=== PATIENT | male | born 1960 | race Caucasian/White ===

== ENCOUNTER 2023-03-13 16:30 | Inpatient (IN) | payer OTHER ==
[2023-03-13 18:10] LABS: Absolute Lymphocytes (CBC) 1.3 K/uL (0.7-4.9); Hematocrit 35.1 % (39.6-49.0); Lymphocytes % 9.8 % (15.3-44.8); MCV 90.9 fL (80-100); MPV 7.8 fL (7.6-11.3); Platelets 289 thou/uL (152-406); RBC Red Blood Cell Count 3.86 M/uL (4.33-5.43)
[2023-03-13 18:14] LABS: Protime INR 1.26
[2023-03-13] MEDS ORDERED: NA CHLORIDE 0.9% 500 ML ONE (18:29)
[2023-03-13] MEDS ORDERED: ACETAMINOPHEN 650MG/RECT SUPP PR ONE (18:29)
[2023-03-13] MEDS ORDERED: NA CHLORIDE 0.9% 1,000 ML ONE (18:29)
[2023-03-13 18:34] LABS: Albumin 2.7 g/dL (3.4-5.0); Bilirubin Total 0.5 mg/dL (0.2-1.0); Potassium 3.7 mEq/L (3.5-5.1); Protein, Total 7.9 g/dL (6.4-8.2)
[2023-03-13] MEDS ORDERED: VANCOMYCIN 1 GM/VIAL ONE (18:39)
[2023-03-13] MEDS ORDERED: CEFEPIME 1 GM/VIAL ONE (18:39)
[2023-03-13] MEDS ORDERED: NA CHLORIDE 0.9% 250 ML ONE (18:40)
[2023-03-13] MEDS ORDERED: NA CHLORIDE 0.9% 100 ML ONE (18:40)
--- NOTE | 2023-03-13 18:58 | RAD REPORT ---
EXAM DESCRIPTION: CT - Head Brain Wo Cont - 03/13/2023 5:57 pm CLINICAL HISTORY: mental status change COMPARISON: No comparisons TECHNIQUE: Noncontrast head CT images were obtained without IV contrast. Multiplanar reformats were generated and reviewed. All CT scans are performed using dose optimization technique as appropriate and may include automated exposure control or mA/KV adjustment according to patient size. FINDINGS: Regions of encephalomalacia with volume loss involving the left frontal lobe in the MCA di stribution, as well as the adjacent high postcentral gyrus, and the right occipital lobe. No intracranial hemorrhage, mass, or edema. Midline structures are unremarkable. No hydrocephalus. Mild diffuse parenchymal volume loss. Davis-white matter differentiation elsewhere is preserved, without evidence of acute infarct. No abnor mal extra-axial fluid collections. Mastoid air cells show patchy fluid opacification. Paranasal sinuses are well aerated. . No acute bony findings. IMPRESSION: No evidence of an acute intracranial process. Chronic findings as above, most compatible with sequelae of remote ischemia.
--- NOTE | 2023-03-13 19:16 | RAD REPORT ---
EXAM DESCRIPTION: [place] Single View03/13/2023 6:20 pm CLINICAL HISTORY: FEVER COMPARISON: No comparisons TECHNIQUE: Portable AP view of the chest. FINDINGS: Decreased inspiratory effort limits evaluation. Small left costophrenic angle airspace opa city could reflect atelectasis or early airspace disease. Sequelae of prior CABG. No pneumothorax. P ossible trace left effusion. The cardiomediastinal contours are unremarkable. IMPRESSION: Small left costophrenic is airspace opacity, could reflect atelectasis or early airspace disease.
--- NOTE | 2023-03-13 19:17 | RAD REPORT ---
EXAM DESCRIPTION: RAD - Foot Left 3 View - 03/13/2023 6:20 pm CLINICAL HISTORY: r/o osteomyelitis COMPARISON: No comparisons TECHNIQUE: Left foot, 3 views. FINDINGS: No fracture, dislocation or periosteal reaction. Sequelae of amputation of the tuft of the first digit distal phalanx. No osseous destructive changes are appreciated. Adjacent soft irregulari ty. No air or foreign body in the soft tissues. IMPRESSION: Sequelae of amputation of the tuft of the first digit distal phalanx. No findings to sug gest ongoing osteomyelitis. If there is persistent clinical suspicion, additional evaluation by MRI w ould provide improved sensitivity.
[2023-03-13 19:19] LABS: Specific Gravity > 1.030 (1.005-1.030); Urine Bacteria <20 /HPF (<20); Urine Bilirubin NEGATIVE (Negative); Urine Blood Negative (Negative); Urine Clarity Extremely Turbid (Clear); Urine Color Yellow (Yellow); Urine Crystals Unidentified Few /HPF (None Seen); Urine Glucose NEGATIVE (Negative); Urine Mucus 2+ /HPF (None Seen); Urine Protein 1+ (Negative); Urine Urobilinogen 3+ (Normal); Urine WBC Clump Rare /HPF (None Seen)
--- NOTE | 2023-03-13 19:40 | EDPHYS ---
Physician Documentation [facility] Name: Ariel Andrews Age: 62 yrs Sex: Male : 1960 Arrival Date: 03/13/2023 Time: 16:30 Bed 20 Private MD: ED Physician Henrik Walton HPI: 03/13 16:38 This 62 yrs old Unknown Male presents to ER via EMS with complaints of Fall Injury, jh7 Altered Mental Status. 16:38 Details of fall: The patient fell from a supine position, out of bed. Onset: The jh7 symptoms/episode began/occurred today. [facility] status. [facility] staff reports that the patient threw himself out of bed twice today. Also reports that he had a fever and is currently being treated for gangrenous left toe. Patient is aphasic with right-sided deficits from past stroke.. Historical: - Allergies: 16:38 No Known Allergies; eh3 - PMHx: 16:38 Cerebrovascular accident; Diabetes mellitus; Hypothyroidism; Hypertensive disorder; eh3 Transient cerebral ischemia; Peripheral vascular disease; Aphasia; Dysphagia; Anemia; Anxiety; Depressive disorder; Insomnia; - PSHx: 16:38 Right AKA; Coronary artery bypass graft; eh3 - Immunization history:: Adult Immunizations up to date. - Social history:: Smoking status: unknown. ROS: 16:38 Eyes: Negative for injury, pain, redness, and discharge, ENT: Negative for injury, jh7 pain, and discharge, Neck: Negative for injury, pain, and swelling, Cardiovascular: Negative for chest pain, palpitations, and edema, Respiratory: Negative for shortness of breath, cough, wheezing, and pleuritic chest pain, Abdomen/GI: Negative for abdominal pain, nausea, vomiting, diarrhea, and constipation, 16:38 Constitutional: Positive for fever, 16:38 MS/extremity: Positive for Wound on left great toe, right AKA, 16:38 Skin: Positive for Necrotic wound on left great toe, 16:38 Neuro: Positive for altered mental status, Negative for seizure activity, syncope, 16:38 All other systems are negative, Exam: 16:38 Constitutional: This is a well developed, well nourished patient who is awake, alert, jh7 and in no acute distress. Head/Face: Normocephalic, atraumatic. ENT: Nares patent. No nasal discharge, no septal abnormalities noted. Tympanic membranes are normal and external auditory canals are clear. Oropharynx with no redness, swelling, or masses, exudates, or evidence of obstruction, uvula midline. Mucous membranes moist. Neck: Trachea midline, no thyromegaly or masses palpated, and no cervical lymphadenopathy. Supple, full range of motion without nuchal rigidity, or vertebral point tenderness. No Meningismus. Cardiovascular: Regular rate and rhythm with a normal S1 and S2. No gallops, murmurs, or rubs. Normal PMI, no JVD. No pulse deficits. Respiratory: Lungs have equal breath sounds bilaterally, clear to auscultation and percussion. No rales, rhonchi or wheezes noted. No increased work of breathing, no retractions or nasal flaring. Abdomen/GI: Soft, non-tender, with normal bowel sounds. No distension or tympany. No guarding or rebound. No evidence of tenderness throughout. 16:38 Musculoskeletal/extremity: Extremities: Right ixecc-mgi-kmua amputation, Large gangrenous wound on left great toe extending to the distal metatarsal, Circulation is intact in all extremities. Sensation intact. 16:38 Skin: Large gangrenous wound on the left great toe. 16:38 Neuro: Patient is aphasic from previous stroke but is able to follow commands, Vital Signs: 16:34 BP 99 / 59; Pulse 96; Resp 18; Temp 100.3(O); Pulse Ox 95% on R/A; Weight 82.55 kg; eh3 17:30 BP 99 / 51; Pulse 91; Resp 18; Pulse Ox 97% on R/A; eh3 18:30 BP 128 / 44; Pulse 77; Resp 18; Pulse Ox 98% on R/A; eh3 19:30 BP 125 / 48; Pulse 78; Resp 18; Pulse Ox 98% on R/A; eh3 20:30 BP 123 / 44; Pulse 74; Resp 18; Pulse Ox 95% on R/A; eh3 MDM: 16:34 Patient medically screened. [facility] 19:20 Differential diagnosis: Sepsis, CVA, electrolyte imbalance, UTI, pneumonia, wound jh7 infection, hypoglycemia. Data reviewed: vital signs, nurses notes, lab test result(s), EKG, radiologic studies, CT scan, plain films. Consideration of Admission/Observation Patient was admitted/placed on observation. Management of patient was discussed with the following: Hospitalist: MARIA DEL ROSARIO [place] for Dr. Tellez. I considered the following discharge prescriptions or medication management in the emergency department Medications were administered in the Emergency Department. See MAR. Independent interpretation of the following test(s) in the Emergency Department EKG: See my EKG interpretation above. Historians other than the Patient: EMS: . Care significantly affected by the following chronic conditions: Diabetes, Hypertension, CVA. Post IV fluid administration reassessment for Sepsis: Client prescribed 30 mL/kg IVF. Sepsis focused reassessment complete. Heart: Regular rate/rhythm noted. Lungs: Noted to be clear bilaterally. Capillary refill examination performed. Capillary refill noted to be brisk. Peripheral pulse evaluation performed. Radial Skin examination performed. Skin noted to have normal turgor. Current vital signs reviewed: Yes. Counseling: I had a detailed discussion with the patient and/or guardian regarding the historical points, exam findings, and any diagnostic results supporting the discharge/admit diagnosis, the need for further work-up and treatment in the hospital. Response to treatment: the patient's symptoms have mildly improved after treatment. 03/13 16:42 Order name: Blood Culture Adult (2) [facility] 03/13 16:42 Order name: CBC with Diff; Complete Time: 18:15 [facility] 03/13 16:42 Order name: CMP; Complete Time: 18:52 [facility] 03/13 16:42 Order name: Lactate w/ 2H reflex if indic.; Complete Time: 18:52 [facility] 03/13 16:42 Order name: Protime (+inr); Complete Time: 18:15 [facility] 03/13 16:42 Order name: Ptt, Activated; Complete Time: 18:15 [facility] 03/13 16:42 Order name: Urinalysis w/ reflexes; Complete Time: 19:19 [facility] 03/13 19:22 Order name: Urine Culture [facility] 03/13 20:28 Order name: SARS RAPID mc5 03/13 16:42 Order name: Chest Single View XRAY; Complete Time: 19:18 [facility] 03/13 16:42 Order name: XRAY Foot LEFT 3 View; Complete Time: 19:18 [facility] 03/13 17:11 Order name: Head Brain Wo Cont; Complete Time: 19:01 EDMS 03/13 16:42 Order name: EKG; Complete Time: 17:52 [facility] 03/13 19:48 Order name: CONS Physician Consult [facility] 03/13 16:42 Order name: Accucheck; Complete Time: 17:01 [facility] 03/13 16:42 Order name: Cardiac monitoring; Complete Time: 17:01 [facility] 03/13 16:42 Order name: EKG - Nurse/Tech; Complete Time: 17:35 [facility] 03/13 16:42 Order name: IV Saline Lock - Large Bore; Complete Time: 18:13 [facility] 03/13 16:42 Order name: Labs collected and sent; Complete Time: 18:13 [facility] 03/13 16:42 Order name: O2 Per Protocol; Complete Time: 17: [facility] 03/13 16:42 Order name: O2 Sat Monitoring; Complete Time: 17:01 [facility] 03/13 16:42 Order name: Vital Signs; Complete Time: 17:01 [facility] 03/13 18:24 Order name: Reinoso; Complete Time: 19:13 [facility] EC:11 Rate is 98 beats/min. Rhythm is regular. Left axis deviation noted. NC interval is [facility] normal at 162 msec. QRS interval is normal. QT interval is normal at 344 msec. No Q waves. T waves are Normal. No ST changes noted. Clinical impression: Sinus Rhythm with occasional premature ventricular complexes. Administered Medications: 18:13 Drug: Acetaminophen NC Suppository 650 mg NC once Route: NC; 3 21:00 Follow up: Response: No adverse reaction; Temperature is decreased [facility] 18:14 Drug: NS 0.9% IV (30 ml/kg) 30 ml/kg IV at bolus once; Sepsis Protocol Route: IV; Rate: eh3 bolus; Site: left hand; 21:00 Follow up: IV Status: Completed infusion; IV Intake: 2500ml 3 19:08 Drug: Cefepime IVPB 1 grams IVPB at 200 ml/hr once over 30 mins; (mix in NS 100 mL) 3 Route: IVPB; Rate: 200 ml/hr; Infused Over: 30 mins; Site: left hand; 19:46 Follow up: Response: No adverse reaction; IV Status: Completed infusion; IV Intake: km8 100ml 19:47 Drug: vancoMYCIN IVPB 1 grams IVPB once over 2 hrs Route: IVPB; Infused Over: 2 hrs; km8 Site: left hand; 21:00 Follow up: Response: No adverse reaction; IV Status: Infusion continued upon admission; [facility] IV Intake: 150ml Disposition Summary: 03/13/23 19:39 Hospitalization Ordered Notes: Hospitalization Status: Inpatient Admission [facility] Provider: Woody Tellez [facility] Location: Telemetry/MedSur (Inpatient) [facility] Condition: Stable [facility] Problem: new [facility] Symptoms: are unchanged [facility] Bed/Room Type: Standard [facility] Room Assignment: 207(03/13/23 20:38) Diagnosis - Severe sepsis without septic shock [facility] - Gangrenous wound to the left great toe [facility] Forms: - Medication Reconciliation Form [facility] - SBAR form [facility] - Leadership Thank You Letter [facility] Signatures: Dispatcher [employer] EDMS Shayy Jaramillo RN RN Iris Ling RN RN [facility] Deirdre Duncan, COTTON CONVERTER COTTON CONVERTER [facility] Shannan Monroe RN RN [facility] Corrections: (The following items were deleted from the chart) 16:47 16:38 PMHx: Diabetes mellitus; [facility] 17:59 17:53 Head Brain Wo Cont+CT.RAD.BRZ ordered. EDMS EDMS 18:24 18:23 Reinoso ordered. [place] [id number] 20:38 19:39 [facility]
--- NOTE | 2023-03-13 19:40 | ER ---
Nurse's Notes [facility] Name: Ariel Andrews Age: 62 yrs Sex: Male : 1960 Arrival Date: 03/13/2023 Time: 16:30 Bed 20 Private MD: Diagnosis: Severe sepsis without septic shock;Gangrenous wound to the left great toe Presentation: 03/13 16:34 Chief complaint: EMS states: toned out to [place] for fall out of bed. 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 Pt has existing wound on left big toe being treated for gangrene. Coronavirus screen: Vaccine status: Patient reports receiving the 2nd dose of the covid vaccine. Ebola Screen: No symptoms or risks identified at this time. Initial Sepsis Screen: Does the patient meet any 2 criteria? Temp <36.0*C (96.8*F)) or > 38.3*C (100.9*F). Altered Mental Status. Does the patient have a suspected source of infection? Yes:. Risk Assessment: Do you want to hurt yourself or someone else? Patient reports no desire to harm self or others. Onset of symptoms was March 13, 2023. 16:34 Method Of Arrival: EMS: [facility] 16:34 Acuity: CROW 2 3 16:34 Care prior to arrival: Medication(s) given: Lactated Ringers 350mL IV initiated. 20 GA, eh3 in the left hand, Glucose check: 126. Triage Assessment: 16:38 General: Appears in no apparent distress. Behavior is cooperative, flat. Pain: Denies eh3 pain. Neuro: Level of Consciousness is awake, alert, obeys commands, Oriented to person, place. Cardiovascular: Capillary refill < 3 seconds Patient's skin is warm and dry. Respiratory: Airway is patent Respiratory effort is even, unlabored, Respiratory pattern is regular, symmetrical. GI: Abdomen is round non-distended. Derm: Skin is pink, warm \\T\\ dry. Wound noted left first toe Wound is eschar. Musculoskeletal: Amputation of right leg above the knee Capillary refill < 3 seconds. Historical: - Allergies: 16:38 No Known Allergies; eh3 - PMHx: 16:38 Cerebrovascular accident; Diabetes mellitus; Hypothyroidism; Hypertensive disorder; eh3 Transient cerebral ischemia; Peripheral vascular disease; Aphasia; Dysphagia; Anemia; Anxiety; Depressive disorder; Insomnia; - PSHx: 16:38 Right AKA; Coronary artery bypass graft; eh3 - Immunization history:: Adult Immunizations up to date. - Social history:: Smoking status: unknown. Screenin:40 [facility] ED Fall Risk Assessment (Adult) Score/Fall Risk Level 0 - 2 = Low Risk. Abuse eh3 screen: Denies threats or abuse. Denies injuries from another. Nutritional screening: No deficits noted. Tuberculosis screening: No symptoms or risk factors identified. Assessment: 16:40 Reassessment: No changes from previously documented assessment. See triage assessment. eh3 17:30 Reassessment: Patient appears in no apparent distress at this time. Patient and/or eh3 family updated on plan of care and expected duration. Pain level reassessed. Patient is alert, oriented x 3, equal unlabored respirations, skin warm/dry/pink. 18:30 Reassessment: Patient appears in no apparent distress at this time. Patient and/or eh3 family updated on plan of care and expected duration. Pain level reassessed. Patient is alert, oriented x 3, equal unlabored respirations, skin warm/dry/pink. 19:30 Reassessment: Patient appears in no apparent distress at this time. Patient and/or eh3 family updated on plan of care and expected duration. Pain level reassessed. Patient is alert, oriented x 3, equal unlabored respirations, skin warm/dry/pink. 20:30 Reassessment: Patient appears in no apparent distress at this time. Patient and/or eh3 family updated on plan of care and expected duration. Pain level reassessed. Patient is alert, oriented x 3, equal unlabored respirations, skin warm/dry/pink. Vital Signs: 16:34 BP 99 / 59; Pulse 96; Resp 18; Temp 100.3(O); Pulse Ox 95% on R/A; Weight 82.55 kg; eh3 17:30 BP 99 / 51; Pulse 91; Resp 18; Pulse Ox 97% on R/A; eh3 18:30 BP 128 / 44; Pulse 77; Resp 18; Pulse Ox 98% on R/A; eh3 19:30 BP 125 / 48; Pulse 78; Resp 18; Pulse Ox 98% on R/A; eh3 20:30 BP 123 / 44; Pulse 74; Resp 18; Pulse Ox 95% on R/A; eh3 ED Course: 16:33 Patient arrived in ED. 3 16:34 Deirdre Duncan FNP [facility] 7 16:34 Henrik Walton MD is Attending Physician. 7 16:38 Triage completed. 3 16:38 Arm band placed on. 3 16:40 Patient has correct armband on for positive identification. Placed in gown. Bed in low eh3 position. Call light in reach. Side rails up X2. Provided Education on: Use of call martin. Client placed on continuous cardiac and pulse oximetry monitoring. NIBP monitoring applied. 16:45 Missed attempt(s): 18 gauge in right antecubital area. Bleeding controlled, band aid eh3 applied, catheter tip intact. 16:55 Missed attempt(s): 20 gauge in right upper arm. Bleeding controlled, band aid applied, eh3 catheter tip intact. 16:57 Iris Ling, FELICITA is Primary Nurse. 3 17:59 Head Brain Wo Cont In Process Unspecified. EDMS 18:07 Initial lab(s) drawn, by me, sent to lab. Inserted saline lock: 22 gauge in left ph antecubital area, using aseptic technique. Blood collected. 18:22 Chest Single View XRAY In Process Unspecified. EDMS 18:22 XRAY Foot LEFT 3 View In Process Unspecified. EDMS 19:11 Reinoso cath inserted, using sterile technique, 16 Fr., by me, balloon inflated, to sm8 gravity drainage, urine specimen collected. Patient tolerated well. with temperature gauge. 19:37 Woody Tellez MD is Hospitalizing Provider. [facility] 21:00 No provider procedures requiring assistance completed. Patient admitted, IV remains in eh3 place. Administered Medications: 18:13 Drug: Acetaminophen VA Suppository 650 mg VA once Route: VA; [facility] 21:00 Follow up: Response: No adverse reaction; Temperature is decreased [facility] 18:14 Drug: NS 0.9% IV (30 ml/kg) 30 ml/kg IV at bolus once; Sepsis Protocol Route: IV; Rate: eh3 bolus; Site: left hand; 21:00 Follow up: IV Status: Completed infusion; IV Intake: 2500ml [facility] 19:08 Drug: Cefepime IVPB 1 grams IVPB at 200 ml/hr once over 30 mins; (mix in NS 100 mL) [facility] Route: IVPB; Rate: 200 ml/hr; Infused Over: 30 mins; Site: left hand; 19:46 Follow up: Response: No adverse reaction; IV Status: Completed infusion; IV Intake: km8 100ml 19:47 Drug: vancoMYCIN IVPB 1 grams IVPB once over 2 hrs Route: IVPB; Infused Over: 2 hrs; 8 Site: left hand; 21:00 Follow up: Response: No adverse reaction; IV Status: Infusion continued upon admission; [facility] IV Intake: 150ml Medication: 21:00 VIS not applicable for this client. [facility] Intake: 19:46 IV: 100ml; Total: 100ml. [facility] 21:00 IV: 150ml; Total: 250ml. 3 21:00 IV: 2500ml; Total: 2750ml. [facility] Outcome: 19:39 Decision to Hospitalize by Provider. [facility] 21:00 Admitted to Med/surg accompanied by nurse, via stretcher, room 207, Report called to radha Minaya RN 21:00 Condition: stable 21:00 Instructed on the need for admit, 21:04 Patient left the ED. [facility] Signatures: Dispatcher [employer] Aylin Poole, FELICITA MIMS Iris Ling RN FELICITA [facility] Deirdre Duncan, CARDIAC CATHETERIZATION TECHNOLOGIST CARDIAC CATHETERIZATION TECHNOLOGIST [facility] Sindy Mccain [facility] Shannan Monroe RN RN 8 Corrections: (The following items were deleted from the chart) 16:47 16:38 PMHx: Diabetes mellitus; [place] [id number] 17:00 16:34 BP 102 / 40; Pulse 86bpm; Resp 18bpm; Pulse Ox 95% RA; Temp 102.8F Axillary; [place] [id number] 21:26 21:23 Response: No adverse reaction; IV Status: Infusion continued upon admission; IV 3 Intake: 150ml [facility] : 21:23 IV Status: Completed infusion; IV Intake: 2500ml [place] [id number] : 21:23 Response: No adverse reaction; Temperature is decreased [place] [id number]
--- NOTE | 2023-03-13 19:43 | P.HP ---
Certification for Inpatient Patient admitted to: Inpatient With expected LOS: <2 Midnights Patient will require the following post-hospital care: None Practitioner: I am a practitioner with admitting privileges, knowledge of patient current condition, hospital course, and medical plan of care. Services: Services provided to patient in accordance with Admission requirements found in Title 42 Section 412.3 of the Code of Federal Regulations Patient History Date of Service: 03/14/23 Reason for admission: Leukocytosis History of Present Illness: 62-year-old male with a past medical history of CVA, diabetes, hypothyroidism, hypertension, PVD, aphasia, dysphagia, anemia, anxiety, depression, insomnia, presents to the emergency room via EMS from [facility] with after falling out of bed from the [facility] today. correction also reported patient had a fever, and is currently being treated for gangrene of the left toe. Patient is aphasic with right-sided weakness from previous CVA. Patient responds to verbal with head nods, no reported shortness of breath or chest pain, plan to admit for sepsis without shock, Gangrenous wound to the left great toe with surgery consulted. ER evaluation EKG rate is 98 beats/min. Rhythm is regular. Left axis deviation noted. CT interval is normal at 162 msec. QRS interval is normal. QT interval is normal at 344 msec. No Q waves. T waves are Normal. No ST changes noted. Clinical impression: Sinus Rhythm with occasional premature ventricular complexes. Vital signs4 BP 99 / 59; Pulse 96; Resp 18; Temp 100.3(O); Pulse Ox 95% on R/A patient was treated with cefepime and vancomycin in the emergency room. Left foot x-ray IMPRESSION: Sequelae of amputation of the tuft of the first digit distal phalanx. No findings to suggest ongoing osteomyelitis. If there is persistent clinical suspicion, additional evaluation by MRI would provide improved sensitivity. Chest x-ray MPRESSION: Small left costophrenic is airspace opacity, could reflect atelectasis or early airspace disease. CT of the brain IMPRESSION: No evidence of an acute intracranial process.Chronic findings as above, most compatible with sequelae of remote ischemia. Laboratory evaluation CBC leukocytosis 13.50, early left shift, normocytic anemia 11.1 35.1, hypoalbuminemia 2.7 UA positive for acute cystitis leukoesterase greater than 250 10-11 WBCs Allergies No Known Allergies Allergy (Unverified 03/13/23 21:34) Home medications list reviewed: Yes Home Medications: Acetaminophen [Tylenol] 650 mg PO Q6HP PRN 03/13/23 Ascorbic Acid [C-500] 500 mg PO DAILY 03/13/23 Aspirin 81 mg PO DAILY 03/13/23 Atorvastatin Calcium [Lipitor] 20 mg PO BEDTIME 03/13/23 Cholecalciferol (Vitamin D3) [Vitamin D 5,000 Iu Cap] 5,000 unit PO UD 03/13/23 Cyanocobalamin [Vitamin B-12] 1,000 mcg PO DAILY 03/13/23 Divalproex [Depakote Sprinkle] 4 cap PO BEDTIME 03/13/23 Furosemide [Lasix] 20 mg PO DAILY 03/13/23 Insulin Glargine,Hum.rec.anlog [Lantus Solostar] 30 unit SQ BEDTIME 03/13/23 Insulin Regular, Human [Novolin R] See Protocol IJ ACHS 03/13/23 Levothyroxine [Synthroid] 75 mcg PO [id number] 03/13/23 Metoprolol Tartrate [Lopressor] 12.5 mg PO BID 03/13/23 Mirtazapine [Remeron] 7.5 mg PO BEDTIME 03/13/23 Nitroglycerin [Nitrostat] 0.4 mg SL SEECOM 03/13/23 Tamsulosin [Flomax] 0.4 mg PO BEDTIME 03/13/23 Zinc Gluconate [Zinc] 50 mg PO DAILY 03/13/23 - Past Medical/Surgical History Diabetic: Yes -: CVA R) weakness, aphasia -: R)AKA -: HTN -: HLD -: anxiety, depression -: PVD -: hypothyroidism -: Diabetes -: R)AKA -: L) great toe amputation Psychosocial/ Personal History: [facility] HOME - Social History Alcohol use: No CD- Drugs: No Caffeine use: No Review of Systems 10-point ROS is otherwise unremarkable Physical Examination - Physical Exam General: Alert, In no apparent distress, Other (Aphasia, responds to verbal with head nods) HEENT: Atraumatic, Normocephalic, PERRLA, Mucous membr. moist/pink Neck: Supple, 2+ carotid pulse no bruit Respiratory: Normal air movement, Diminished Cardiovascular: Normal pulses, Regular rate/rhythm, Normal S1 S2 Capillary refill: <2 Seconds Gastrointestinal: Normal bowel sounds, Soft and benign Musculoskeletal: Other (Right AKA, left great toe amputation,) Integumentary: Other (Left great toe gangrene) Neurological: Other (Right hemiparesis), Abnormal speech - Studies Laboratory Data (last 24 hrs) 03/13/23 03/13/23 03/13/23 17:55 17:55 17:55 WBC 13.50 H Hgb 11.7 L Hct 35.1 L Plt Count 289 PT 13.9 H INR 1.26 APTT 34.2 Sodium 140 Potassium 3.7 BUN 12 Creatinine 1.26 Glucose 124 H Total Bilirubin 0.5 AST 14 L ALT 13 L Alkaline Phosphatase 64 Assessment and Plan - Plan Assessment plan Sepsis without shock acute left great toe gangrene acute Fall acute Hypoalbuminemia Acute cystitis History of CVA right hemiparesis, aphasia, dysphagia Normocytic anemia diabetes type II hypothyroidism hypertension PVD anemia anxiety, depression insomnia DVT prophylaxis Assessment plan Sepsis without shock left great toe gangrene Surgery consult to evaluate left lower extremity gangrene CBC leukocytosis 13.50, early left shift, IV cefepime, IV vancomycin Blood cultures, urine cultures, trend WBC Left foot x-ray IMPRESSION: Sequelae of amputation of the tuft of the first digit distal phalanx. No findings to suggest ongoing osteomyelitis. If there is persistent clinical suspicion, additional evaluation by MRI would provide improved sensitivity. Chest x-ray MPRESSION: Small left costophrenic is airspace opacity, could reflect atelectasis or early airspace disease. Acute cystitis UA positive for acute cystitis leukoesterase greater than 250 10-11 WBCs IV antibiotics Fall history of CVA right hemiparesis, aphasia, dysphagia Fall precautions, supportive care CT of the brain IMPRESSION: No evidence of an acute intracranial process.Chronic findings as above, most compatible with sequelae of remote ischemia. PT eval relation Normocytic anemia anemia 11.1 35.1 Hypoalbuminemia hypoalbuminemia 2.7 diabetes type II Accu-Cheks, sliding scale insulin hypothyroidism hypertension EKG rate is 98 beats/min. Rhythm is regular. Left axis deviation noted. CT interval is normal at 162 msec. QRS interval is normal. QT interval is normal at 344 msec. No Q waves. T waves are Normal. No ST changes noted. Clinical impression: Sinus Rhythm with occasional premature ventricular complexes. Vital signs4 BP 99 / 59; Pulse 96; Resp 18; Temp 100.3(O); Pulse Ox 95% on R/A PVD anxiety, depression insomnia Resume appropriate home medications Full code Diet n.p.o. after midnight DVT prophylaxis SCDs Discharge Plan: Snf Plan to discharge in: 48 Hours - Advance Directives Does patient have a Living Will: No Does patient have a Durable POA for Healthcare: No - Code Status/Comfort Care Code Status: Full Code Physician Review: Patient Assessed, Agree with Above Assessment and Plan Critical Care: No Time Spent Managing Pts Care (In Minutes): 50
[2023-03-13] MEDS: NA CHLORIDE 0.9% 1,000 ML IV SCH (20:45)
[2023-03-13] MEDS ORDERED: GLUCAGON 1 MG/VIAL IM PRN (20:45)
[2023-03-13] MEDS ORDERED: ONDANSETRON 4 MG/2 ML VIAL IV PRN (20:45)
[2023-03-13] MEDS ORDERED: D50W 25 GM/50 ML SYRINGE IV PRN (20:45)
[2023-03-13] MEDS: INSULIN REGULAR (HUMAN) 100 UNIT/ML SQ SCH (21:00)
[2023-03-13] MEDS ORDERED: D10W 125 ML IV PRN (21:20)
[2023-03-13] MEDS ORDERED: VANCOMYCIN 500 MG in NA CHLORIDE 0.9% 100 ML IVPB ONE (23:00)
[2023-03-14 03:49] LABS: Absolute Lymphocytes (CBC) 0.9 K/uL (0.7-4.9); Hematocrit 32.1 % (39.6-49.0); Lymphocytes % 10.5 % (15.3-44.8); MCV 91.3 fL (80-100); MPV 8.3 fL (7.6-11.3); Platelets 198 thou/uL (152-406); RBC Red Blood Cell Count 3.52 M/uL (4.33-5.43)
[2023-03-14 04:08] LABS: Magnesium 1.7 mg/dL (1.6-2.4); Potassium 3.5 mEq/L (3.5-5.1)
[2023-03-14] MEDS ORDERED: MAGNESIUM SULFATE 1 gm IVPB 1 GM/100 ML BAG IV ONE (05:00)
[2023-03-14] MEDS ORDERED: KCL 20 MEQ/100 mL IVPB 20 MEQ/100 ML BAG IV SCH (06:00)
[2023-03-14] MEDS: INSULIN REGULAR (HUMAN) 100 UNIT/ML SQ SCH ×4 (07:30→19:08)
[2023-03-14] MEDS: ACETAMINOPHEN 500 MG TAB PO PRN ×2 (08:30→16:18)
[2023-03-14] MEDS ORDERED: VANCOMYCIN 1.25 GM in NA CHLORIDE 0.9% 250 ML IVPB SCH (09:00)
[2023-03-14] MEDS ORDERED: CEFEPIME 2 GM in NA CHLORIDE 0.9% 100 ML IV SCH (09:00)
[2023-03-14] MEDS: NA CHLORIDE 0.9% 1,000 ML IV SCH (12:34)
[2023-03-14] MEDS: Meropenem 1,000 MG in NA CHLORIDE 0.9% 100 ML IV SCH ×2 (12:48→20:25)
[2023-03-14] MEDS: ASPIRIN 81 MG CHEWABLE TABLET PO SCH (12:48)
--- NOTE | 2023-03-14 12:48 | RAD REPORT ---
EXAM DESCRIPTION: RAD - Foot Left 3 View - 03/14/2023 12:39 pm CLINICAL HISTORY: left foot gangrene COMPARISON: Foot Left 3 View dated 03/13/2023 FINDINGS/IMPRESSION: No acute fracture. Partial amputation of the great toe distal phalanx. No evide nce of osteomyelitis. MRI more sensitive in the acute phase.
[2023-03-14] MEDS: VANCOMYCIN 1.5 GM in NA CHLORIDE 0.9% 500 ML IVPB SCH (13:19)
--- NOTE | 2023-03-14 13:51 | EKG ---
Test Date: 2023-03-13 Test Time: 17:11:57 Cigarette Making Examiner: VIVI MEASUREMENT RESULTS: Intervals: Rate: 98 DC: 162 QRSD: 86 QT: 344 QTc: 439 [place]: P: 61 DC: 162 QRS: -42 T: 124 INTERPRETIVE STATEMENTS: Sinus rhythm with occasional premature ventricular complexes Left axis deviation T wave abnormality, consider lateral ischemia Abnormal ECG No previous ECG available for comparison Electronically Signed On 03-14-23 13:49:51 CDT by Kareem Hutchison
--- NOTE | 2023-03-14 15:06 | RAD REPORT ---
EXAM DESCRIPTION: US - Lower Extremity Artery Uni Ltd - 03/14/2023 2:55 pm CLINICAL HISTORY: left foot gangrene COMPARISON: None FINDINGS: The common femoral, superficial femoral and popliteal arteries demonstrate monophasic wave forms The posterior tibial and dorsalis pedis arteries demonstrate monophasic waveforms . IMPRESSION: Monophasic waveforms throughout the left lower extremity. This could reflect a moderate to severe stenosis more proximally in the pelvis.
[2023-03-14] MEDS ORDERED: HYDROMORPHONE HCL 2 MG/ML inj IV PRN (16:23)
[2023-03-14] MEDS ORDERED: AMLODIPINE 5 MG TAB PO ONE (16:24)
[2023-03-14] MEDS ORDERED: HYDROCODONE/APAP 5/325 MG TAB PO PRN (16:24)
[2023-03-14] MEDS ORDERED: VANCOMYCIN 1.5 GM in NA CHLORIDE 0.9% 500 ML IVPB SCH (17:00)
[2023-03-14] MEDS: METOPROLOL TAR 25 MG TAB PO SCH (17:25)
[2023-03-14] MEDS: DIVALPROEX DR 500MG TAB PO SCH (19:08)
[2023-03-14] MEDS: INSULIN GLARGINE 100 UNIT/ML SQ SCH (19:08)
[2023-03-14] MEDS: TAMSULOSIN 0.4 MG SR CAP PO SCH (19:08)
[2023-03-14] MEDS: ATORVASTATIN 20 MG TAB PO SCH ×2 (20:25→21:00)
[2023-03-14] MEDS: MIRTAZAPINE 15 MG TAB PO SCH ×2 (20:25→21:00)
[2023-03-15] MEDS ORDERED: ACETAMINOPHEN 650MG/RECT SUPP PR PRN (01:02)
[2023-03-15] MEDS: LEVOTHYROXINE SOD 0.075 MG TAB PO SCH (03:47)
[2023-03-15] MEDS: VANCOMYCIN 1.5 GM in NA CHLORIDE 0.9% 500 ML IVPB SCH ×2 (07:00→12:12)
[2023-03-15 07:57] LABS: Absolute Lymphocytes (CBC) 1.4 K/uL (0.7-4.9); Hematocrit 30.8 % (39.6-49.0); Lymphocytes % 13.4 % (15.3-44.8); MPV 8.2 fL (7.6-11.3); Platelets 203 thou/uL (152-406); RBC Red Blood Cell Count 3.34 M/uL (4.33-5.43)
[2023-03-15 08:11] LABS: Potassium 3.6 mEq/L (3.5-5.1)
[2023-03-15] MEDS: ASCORBIC ACID 500 MG TABLET PO SCH (09:00)
[2023-03-15] MEDS: METOPROLOL TAR 25 MG TAB PO SCH ×2 (09:00→21:00)
[2023-03-15] MEDS: FUROSEMIDE 20 MG TABLET PO SCH (09:00)
[2023-03-15] MEDS: CYANOCOBALAMIN 1,000 MCG TAB PO SCH (09:00)
[2023-03-15] MEDS: ASPIRIN 81 MG CHEWABLE TABLET PO SCH (09:00)
[2023-03-15] MEDS: INSULIN REGULAR (HUMAN) 100 UNIT/ML SQ SCH ×4 (09:53→21:00)
[2023-03-15] MEDS: Meropenem 1,000 MG in NA CHLORIDE 0.9% 100 ML IV SCH ×2 (09:53→21:57)
--- NOTE | 2023-03-15 13:36 | P.PN ---
Subjective Date of Service: 03/15/23 Chief Complaint: Leukocytosis Patient has no new complain. No recorded fever. Patient is n.p.o. for surgery today. Physical Examination - Vital Signs Temperature: 98.2 F Blood Pressure: 141/67 Pulse: 81 Respirations: 19 Pulse Ox (%): 95 Assessment And Plan - Plan Monophasic waveforms throughout the left lower extremity. Physical Exam General: Alert, In no apparent distress. HEENT: Mucous membr. moist/pink Neck: Supple, 2+ carotid pulse no bruit Respiratory: Normal air movement, Diminished Cardiovascular: Normal pulses, Regular rate/rhythm, Normal S1 S2 Gastrointestinal: Normal bowel sounds, Soft and benign Musculoskeletal: Right AKA, left great toe amputation,) Integumentary: Left great toe dry gangrene. Neurological: Right hemiparesis, Abnormal speech Diagnosis Sepsis without shock acute left great toe gangrene acute Fall acute Hypoalbuminemia Acute cystitis History of CVA right hemiparesis, aphasia, dysphagia Normocytic anemia diabetes type II hypothyroidism hypertension PVD anemia anxiety, depression insomnia Plan: Sepsis without shock left great toe gangrene Surgery consult to evaluate left lower extremity gangrene Continue IV cefepime, IV vancomycin Blood cultures, urine cultures, trend WBC Left foot x-ray IMPRESSION: Sequelae of amputation of the tuft of the first digit distal phalanx. No findings to suggest ongoing osteomyelitis. If there is persistent clinical suspicion, additional evaluation by MRI would provide improved sensitivity. General surgery consulted for debridement. Acute cystitis UA positive for acute cystitis leukoesterase greater than 250 10-11 WBCs Urine culture: Mixed bill. Continue current IV antibiotics Fall history of CVA right hemiparesis, aphasia, dysphagia Fall precautions, supportive care CT of the brain IMPRESSION: No evidence of an acute intracranial process.Chronic findings as above, most compatible with sequelae of remote ischemia. Normocytic anemia Monitor Hypoalbuminemia hypoalbuminemia 2.7 Monitor for edema. Diabetes type II Accu-Cheks, sliding scale insulin Hypertension Blood pressure improved. Resume home medications Hypothyroidism Continue home dose Synthroid. Anxiety, depression insomnia Continue home medications. Peripheral vascular disease Patient may need an angiogram. Full code DVT prophylaxis SCDs Discharge Plan: Group Home s
[2023-03-15] MEDS ORDERED: BUPIVACAINE 0.25% PF 10 ML VIAL ONE (16:12)
[2023-03-15] MEDS ORDERED: NA CHLORIDE 0.9% 1,000 ML ONE (16:43)
[2023-03-15] MEDS ORDERED: SUCCINYLCHOLINE 20 MG/ML (10 ML) IV ONE (18:02)
[2023-03-15] MEDS ORDERED: FENTANYL CITR 100 MCG/2 ML ONE (18:04)
[2023-03-15] MEDS ORDERED: propofoL 200 MG/20 ML VIAL IV ONE ×2 (18:04→18:42)
--- NOTE | 2023-03-15 19:11 | P.OP ---
Preoperative diagnosis: LEFT Great Toe Gangrene Postoperative diagnosis: LEFT Great Toe Gangrene Primary procedure: Transmetatarsal Amputation of LEFT Great Toe Anesthesia: GETA Estimated blood loss: <5cc Specimen: Toe Findings: LEFT Great Toe Gangrene Complications: None Transferred to: Recovery Room Condition: Good
[2023-03-15] MEDS: INSULIN GLARGINE 100 UNIT/ML SQ SCH (21:00)
[2023-03-15] MEDS: TAMSULOSIN 0.4 MG SR CAP PO SCH (21:00)
[2023-03-15] MEDS: MIRTAZAPINE 15 MG TAB PO SCH (22:09)
[2023-03-15] MEDS: DIVALPROEX DR 500MG TAB PO SCH (22:54)
[2023-03-15] MEDS: ATORVASTATIN 20 MG TAB PO SCH (22:58)
[2023-03-16 03:12] LABS: Absolute Lymphocytes (CBC) 1.8 K/uL (0.7-4.9); Hematocrit 30.1 % (39.6-49.0); Lymphocytes % 21.2 % (15.3-44.8); MCV 91.2 fL (80-100); MPV 8.6 fL (7.6-11.3); Platelets 182 thou/uL (152-406)
--- NOTE | 2023-03-16 03:25 | OP ---
Date of Procedure: 03/15/2023 Surgeon: Papito Crane MD, Preoperative Diagnosis: Left great toe gangrene. Postoperative Diagnosis: Left great toe gangrene. Procedure Performed: Transmetatarsal amputation, left great toe. Anesthesia: General endotracheal. Estimated Blood Loss: 5 cc. Specimen: Great toe of the left. Findings: Left great toe gangrene. Complications: None. Disposition: The patient was transferred to recovery room in good condition. Procedure In Detail: After informed was obtained, patient was brought to the operating room, prepped and draped in the usual fashion. After adequate anesthesia was achieved, I demarcated an area of ga ngrenous changes, which extended from the distal aspect of the great toe all the way to the transmeta tarsal aspect of the same said left great toe on the lateral aspect. I demarcated a medial flap to s pare as much skin for flap closure as possible. At this point, I then cut down through the subcutane ous tissues using a 15-blade followed by electrocautery. I dissected circumferentially all the way t o the transmetatarsal position and I the distal phalanx from the metatarsal at this point t hrough the joint capsule using electrocautery. The toe was then sent off for pathologic examination at this point. I then pushed back the periosteum and associated tissues from the metatarsal as the m etatarsal head had discoloration and gangrene extended to this point through the tissues. I ultimate ly performed a transmetatarsal amputation using a bone cutter at this point. I then used a rasp to b evel the edges and irrigated the area copiously to remove all particulate matter. At this point, aft er the area was copiously irrigated, all tendinous connections were pushed back. Periosteal elevator was used to push back additional periosteum and good hemostasis was achieved with minimal electrocau kita. At this point, I used the medial flap to partially close over the top of the wound covering th e vital structures using interrupted 3-0 nylon sutures and the wound was then packed open with Vashe soaked gauze and a sterile dressing placed over top. The patient tolerated the procedure well withou t evidence of complication and transferred to PACU in good condition. All counts were correct at the end of the case. TK/MODL Voice ID: [id number] Report ID: [id number]
[2023-03-16 03:46] LABS: Magnesium 2.1 mg/dL (1.6-2.4); Potassium 3.3 mEq/L (3.5-5.1)
--- NOTE | 2023-03-16 07:05 | P.PN ---
Date of Service: 03/16/23 Subjective: Feeling better today no new / worsening problems foot pain improving afebrile ROS: 10 point ROS as noted above, otherwise negative Physical Exam: GEN: Alert, NAD, nonverbal, but understands, nods yes/no HEENT: Normal conjunctiva, sclera anicteric CV: Regular rate and rhythm, no edema Pulm: Nonlabored respirations on room air, Diminished at bases b/l ABD: Soft, nontender, nondistended MSK: Right AKA, now s/p left great toe amputation, surgical dressing c/d/i Neuro: Right hemiparesis, nonverbal - nods yes/no Enriquez in place vitals reviewed Problem List: Sepsis secondary to left great toe gangrene, now s/p transmetatarsal amputation of left great toe (03/15) Acute cystitis Severe Peripheral vascular disease Acute Fall History of CVA right hemiparesis, aphasia, dysphagia Normocytic anemia Hypoalbuminemia IDDM2 Hypothyroidism Hypertension anxiety, depression insomnia Sepsis secondary to left great toe gangrene, now s/p transmetatarsal amputation of left great toe (03/15) xray Foot (03/13): Sequelae of amputation of the tuft of the first digit distal phalanx. No findings to suggest ongoing osteomyelitis General surgery consulted - Dr. Crane s/p Transmetatarsal Amputation of L Great Toe (03/15) continue empiric vanc / merrem (03/14-) f/u cultures now s/p amputation, de-escalate in next 24hrs afebrile, no leukocytosis blood cx: NGTD Acute cystitis UA: +LE, +WBC, +RBC, <20 bacteria Urine cx: 4+ non-beta hemolytic strep asymptomatic enriquez placed in ED denies urinary symptoms, no retention dc tomorrow Severe Peripheral vascular disease Doppler u/s (03/14): Monophasic waveforms throughout the left lower extremity. moderate-severe stenosis more proximally in the pelvis Cardiology consulted NPO at midnight for peripheral angiogram tomorrow 03/17 Acute Fall history of CVA right hemiparesis, aphasia, dysphagia CT head (03/13): No evidence of an acute intracranial process.Chronic findings as above, most compatible with sequelae of remote ischemia. continue supportive care continue PT Normocytic anemia Hypoalbuminemia hypoalbuminemia 2.7 Continue to monitor IDDM2. Accu-Cheks, sliding scale insulin Hypertension Hypothyroidism Anxiety, depression insomnia confirm home medications, restart as appropriate VTE: SCD Code: Full Dispo: Back to [place] - [facility] Pending further improvement, afebrile > 24hrs, cx results
[2023-03-16] MEDS: LEVOTHYROXINE SOD 0.075 MG TAB PO SCH (07:26)
[2023-03-16] MEDS: INSULIN REGULAR (HUMAN) 100 UNIT/ML SQ SCH ×4 (07:30→20:56)
[2023-03-16] MEDS: FUROSEMIDE 20 MG TABLET PO SCH (09:34)
[2023-03-16] MEDS: ASCORBIC ACID 500 MG TABLET PO SCH (09:35)
[2023-03-16] MEDS: METOPROLOL TAR 25 MG TAB PO SCH ×2 (09:36→20:55)
[2023-03-16] MEDS: ASPIRIN 81 MG CHEWABLE TABLET PO SCH (09:36)
[2023-03-16] MEDS: CYANOCOBALAMIN 1,000 MCG TAB PO SCH (09:36)
[2023-03-16] MEDS: Meropenem 1,000 MG in NA CHLORIDE 0.9% 100 ML IV SCH ×2 (09:37→20:55)
[2023-03-16] MEDS: VANCOMYCIN 1.5 GM in NA CHLORIDE 0.9% 500 ML IVPB SCH ×3 (10:00→16:00)
--- NOTE | 2023-03-16 13:31 | CON ---
Date of Consultation: 03/16/2023 Reason For Consultation: Severe peripheral vascular disease and open wounds. History Of Present Illness: 62-year-old male, history of diabetes, peripheral vascular disease, hype rtension, CVA, anemia presented after a fall, had an open wound to right leg, status post amputation yesterday but he had on arterial Doppler a monophasic waveform suggestive of inflow obstruction, and I was asked to evaluate for a peripheral angiogram and intervention as needed. Past Medical History: As outlined above in the HPI. Medications: Refer to reconciliation sheet for detailed list. Allergies: NO KNOWN DRUG ALLERGIES. Family History: No premature coronary artery disease or cancer. Social History: Does not smoke or drink. Does not use any drugs. Review of Systems: All systems reviewed and they were negative except as mentioned in the HPI. Physical Examination: Vital Signs: Reviewed. Head and Neck: Pupils are equal, reactive to light. Intact eye movements. No JVD. No cervical lym phadenopathy. Neck is supple. Thyroid is not enlarged. Lungs: Clear to auscultation bilaterally. No rhonchi, wheezing, or crackles. No accessory muscle u se. Heart: Regular rate and rhythm. No extra sounds. Abdomen: Soft, nontender. Bowel sounds positive. No organomegaly. No masses or hernia. No rigidi ty or rebound. Extremities: No clubbing, no cyanosis. Status post amputation on the right and multiple wounds on t he left lower extremity, status post bypass in the past of the left lower extremity. Neuro: Alert, awake, oriented x3. No acute focal deficits appreciated. Lymph Nodes: No cervical or axillary lymphadenopathy. Investigations: Labs were reviewed. His BUN is 17, creatinine 0.90, and hemoglobin is 10.1. Assessment And Recommendations: 1.Severe peripheral vascular disease with the ultrasound showing monophasic waveform on the left low er extremity suggestive of inflow obstruction. Keep NPO past midnight. We will plan for a periphera l angiogram tomorrow. 2.Hypertension. His blood pressure is controlled. 3.Dyslipidemia. Recommend Lipitor 40 mg q.h.s. SR/MODL Voice ID: [id number] Report ID: [id number]
[2023-03-16] MEDS ORDERED: HYDROCOD 2.5mg-ACETAMIN 108mg/5mL Soln PO PRN (15:53)
[2023-03-16] MEDS: DIVALPROEX DR 500MG TAB PO SCH (20:55)
[2023-03-16] MEDS: MIRTAZAPINE 15 MG TAB PO SCH (20:55)
[2023-03-16] MEDS: ATORVASTATIN 20 MG TAB PO SCH (20:56)
[2023-03-16] MEDS: TAMSULOSIN 0.4 MG SR CAP PO SCH (20:56)
[2023-03-16] MEDS: INSULIN GLARGINE 100 UNIT/ML SQ SCH (21:00)
[2023-03-17 02:30] LABS: Absolute Lymphocytes (CBC) 1.4 K/uL (0.7-4.9); Hematocrit 33.2 % (39.6-49.0); MCV 90.6 fL (80-100); MPV 8.5 fL (7.6-11.3); Platelets 205 thou/uL (152-406); RBC Red Blood Cell Count 3.66 M/uL (4.33-5.43)
[2023-03-17 02:53] LABS: Magnesium 1.9 mg/dL (1.6-2.4); Potassium 3.3 mEq/L (3.5-5.1)
[2023-03-17] MEDS: LEVOTHYROXINE SOD 0.075 MG TAB PO SCH (05:42)
[2023-03-17] MEDS: KCL 20 MEQ/100 mL IVPB 20 MEQ/100 ML BAG IV SCH ×2 (05:43→06:50)
[2023-03-17] MEDS ORDERED: NA CHLORIDE 0.9% 250 ML ONE (05:49)
[2023-03-17] MEDS: INSULIN REGULAR (HUMAN) 100 UNIT/ML SQ SCH ×4 (07:30→21:24)
[2023-03-17] MEDS: ASCORBIC ACID 500 MG TABLET PO SCH (08:55)
[2023-03-17] MEDS: ASPIRIN 81 MG CHEWABLE TABLET PO SCH (08:55)
[2023-03-17] MEDS: METOPROLOL TAR 25 MG TAB PO SCH ×2 (08:55→21:24)
[2023-03-17] MEDS: CYANOCOBALAMIN 1,000 MCG TAB PO SCH (08:59)
[2023-03-17] MEDS: FUROSEMIDE 20 MG TABLET PO SCH (08:59)
[2023-03-17] MEDS: Meropenem 1,000 MG in NA CHLORIDE 0.9% 100 ML IV SCH ×2 (09:00→21:21)
--- NOTE | 2023-03-17 09:38 | P.PN ---
Date of Service: 03/17/23 Subjective: Doing okay tentative plan for peripheral angiogram today no acute events overnight afebrile ROS: 10 point ROS as noted above, otherwise negative Physical Exam: GEN: Alert, NAD, nonverbal, but understands, nods yes/no HEENT: Normal conjunctiva, sclera anicteric CV: Regular rate and rhythm, no edema Pulm: Nonlabored respirations on room air, Diminished at bases b/l ABD: Soft, nontender, nondistended MSK: Right AKA, now s/p left great toe amputation, surgical dressing c/d/i Neuro: Right hemiparesis, nonverbal - nods yes/no Enriquez in place vitals reviewed Problem List: Sepsis secondary to left great toe gangrene, now s/p transmetatarsal amputation of left great toe (03/15) Acute cystitis Severe Peripheral vascular disease Acute Fall History of CVA right hemiparesis, aphasia, dysphagia Normocytic anemia Hypoalbuminemia IDDM2 Hypothyroidism Hypertension anxiety, depression insomnia Sepsis secondary to left great toe gangrene, now s/p transmetatarsal amputation of left great toe (03/15) xray Foot (03/13): Sequelae of amputation of the tuft of the first digit distal phalanx. No findings to suggest ongoing osteomyelitis General surgery consulted - Dr. Crane s/p Transmetatarsal Amputation of L Great Toe (03/15) continue empiric vanc / merrem (03/14-) f/u cultures now s/p amputation, de-escalate in next 24hrs afebrile, no leukocytosis blood cx: NGTD Acute cystitis UA: +LE, +WBC, +RBC, <20 bacteria Urine cx: 4+ non-beta hemolytic strep asymptomatic enriquez placed in ED denies urinary symptoms, no retention DC enriquez after angiogram; check PVR Severe Peripheral vascular disease Doppler u/s (03/14): Monophasic waveforms throughout the left lower extremity. moderate-severe stenosis more proximally in the pelvis Cardiology consulted NPO for peripheral angiogram today 03/17 Acute Fall history of CVA right hemiparesis, aphasia, dysphagia CT head (03/13): No evidence of an acute intracranial process.Chronic findings as above, most compatible with sequelae of remote ischemia. continue supportive care continue PT Normocytic anemia Hypoalbuminemia hypoalbuminemia 2.7 Continue to monitor IDDM2 Accu-Cheks, sliding scale insulin Hypertension Hypothyroidism Anxiety, depression insomnia confirm home medications, restart as appropriate VTE: SCD Code: Full Dispo: Back to [place] - [place] Pending further improvement, afebrile > 24hrs, cx results
[2023-03-17] MEDS ORDERED: NA CHLORIDE 0.9% 500 ML ONE (11:31)
[2023-03-17] MEDS ORDERED: LIDOCAINE 1% 20 ML MDV ONE (11:31)
[2023-03-17] MEDS ORDERED: HEPA 1000U/500MLS 2,000 UNIT/1,000 ML BAG IV ONE (11:31)
[2023-03-17] MEDS ORDERED: FENTANYL CITR 100 MCG/2 ML ONE (11:33)
[2023-03-17] MEDS ORDERED: ATROPINE SULF 1 MG/10 ML SYR IV ONE (11:35)
[2023-03-17] MEDS ORDERED: HEPARIN 5000 UNIT/ML 1 ML VIAL ONE (11:41)
[2023-03-17] MEDS ORDERED: MIDAZOLAM HCL 2 MG/2 ML INJ ONE (11:41)
[2023-03-17] MEDS ORDERED: VERAPAMIL HCL 10 MG/4 ML VIAL IV ONE (11:41)
[2023-03-17] MEDS ORDERED: HEPARIN 10,000 UNIT/10 ML VIAL IV ONE (11:42)
[2023-03-17] MEDS: VANCOMYCIN 1.5 GM in NA CHLORIDE 0.9% 500 ML IVPB SCH (17:30)
--- NOTE | 2023-03-17 17:32 | RAD REPORT ---
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 Aortic bypass graft is present along with a bifemoral graft. No contrast seen in the by femoral graft which would suggest is occluded as well. Left common femoral artery shows normal flow. The proximal left superficial femoral artery demonstrat es marked reduction in floor, with a greater degree of blood flow noted in the left profunda femoral. This appears to be result of a significant stenosis at the level of the bifurcation of the left comm on femoral artery. There is significant multifocal decreased in hard plaquing throughout the left lower extremity arteri al system. The flow in the left superficial femoral artery is quite diminutive. Reconstitution of flow is seen in the popliteal artery and distal trifurcation vessels via muscular b ranch collaterals. No soft tissue mass or hematoma. IMPRESSION: High-grade stenosis is noted at the bifurcation of the left common femoral artery. The p roximal and mid left superficial femoral artery shows extensive multifocal hard plaquing.
[2023-03-17] MEDS: DIVALPROEX NA 125 MG CAP PO SCH (21:23)
[2023-03-17] MEDS: MIRTAZAPINE 15 MG TAB PO SCH (21:23)
[2023-03-17] MEDS: ATORVASTATIN 20 MG TAB PO SCH (21:24)
[2023-03-17] MEDS: INSULIN GLARGINE 100 UNIT/ML SQ SCH (21:24)
[2023-03-17] MEDS: TAMSULOSIN 0.4 MG SR CAP PO SCH (21:25)
[2023-03-18 05:56] LABS: Absolute Lymphocytes (CBC) 1.7 K/uL (0.7-4.9); Hematocrit 29.7 % (39.6-49.0); Lymphocytes % 26.9 % (15.3-44.8); MCV 89.7 fL (80-100); MPV 8.5 fL (7.6-11.3); Platelets 222 thou/uL (152-406); RBC Red Blood Cell Count 3.31 M/uL (4.33-5.43)
[2023-03-18 06:07] LABS: Magnesium 1.8 mg/dL (1.6-2.4); Phosphorus 2.8 mg/dL (2.5-4.9); Potassium 3.2 mEq/L (3.5-5.1)
[2023-03-18] MEDS: LEVOTHYROXINE SOD 0.075 MG TAB PO SCH (07:13)
[2023-03-18] MEDS: INSULIN REGULAR (HUMAN) 100 UNIT/ML SQ SCH ×4 (07:30→21:00)
[2023-03-18] MEDS ORDERED: MAGNESIUM SULFATE 1 gm IVPB 1 GM/100 ML BAG IV ONE (08:00)
[2023-03-18] MEDS ORDERED: POTASSIUM CL 40 MEQ in NA CHLORIDE 0.9% 500 ML IV SCH (08:00)
[2023-03-18] MEDS: METOPROLOL TAR 25 MG TAB PO SCH ×2 (08:39→20:59)
[2023-03-18] MEDS: CYANOCOBALAMIN 1,000 MCG TAB PO SCH (08:39)
[2023-03-18] MEDS: ASPIRIN 81 MG CHEWABLE TABLET PO SCH (08:39)
[2023-03-18] MEDS: FUROSEMIDE 20 MG TABLET PO SCH (08:40)
[2023-03-18] MEDS: ASCORBIC ACID 500 MG TABLET PO SCH (08:40)
[2023-03-18] MEDS: Meropenem 1,000 MG in NA CHLORIDE 0.9% 100 ML IV SCH (08:49)
--- NOTE | 2023-03-18 10:49 | P.PN ---
Date of Service: 03/18/23 Subjective: nods yes when asked if foot is in pain shakes head no when asked if anything is worse no acute events overnight no trouble voiding after enriquez removed yesterday afebrile ROS: 10 point ROS as noted above, otherwise negative Physical Exam: GEN: Alert, NAD, nonverbal, but understands, nods yes/no HEENT: Normal conjunctiva, sclera anicteric CV: Regular rate and rhythm, no edema Pulm: Nonlabored respirations on room air, Diminished at bases b/l ABD: Soft, nontender, nondistended MSK: Right AKA, now s/p left great toe amputation, surgical dressing c/d/i Neuro: Right hemiparesis, nonverbal - nods yes/no vitals reviewed Problem List: Sepsis secondary to left great toe gangrene, now s/p transmetatarsal amputation of left great toe (03/15) Acute cystitis Severe Peripheral vascular disease Acute Fall History of CVA right hemiparesis, aphasia, dysphagia Normocytic anemia Hypoalbuminemia IDDM2 Hypothyroidism Hypertension anxiety, depression insomnia Sepsis secondary to left great toe gangrene, now s/p transmetatarsal amputation of left great toe (03/15) xray Foot (03/13): Sequelae of amputation of the tuft of the first digit distal phalanx. No findings to suggest ongoing osteomyelitis General surgery consulted - Dr. Crane s/p Transmetatarsal Amputation of L Great Toe (03/15) continue empiric vanc / merrem (03/14-) now s/p amputation, de-escalate in next 24hrs afebrile, no leukocytosis blood cx (03/13): NGTD Acute cystitis Urine cx (03/13): MDR Enterococcus Faecalis asymptomatic enriquez placed in ED; dc'd 03/17 voiding without issues after enriquez dc'd denies urinary symptoms, no retention Severe Peripheral vascular disease Doppler u/s (03/14): Monophasic waveforms throughout the left lower extremity. moderate-severe stenosis more proximally in the pelvis CTA Left lower extremity (03/17): High-grade stenosis is noted at the bifurcation of the left common femoral artery. The proximal and mid left superficial femoral artery shows extensive multifocal hard plaquing Cardiology consulted Acute Fall history of CVA right hemiparesis, aphasia, dysphagia CT head (03/13): No evidence of an acute intracranial process.Chronic findings as above, most compatible with sequelae of remote ischemia. continue supportive care continue PT Normocytic anemia Hypoalbuminemia hypoalbuminemia 2.7 Continue to monitor IDDM2 Accu-Cheks, sliding scale insulin Hypertension Hypothyroidism Anxiety, depression insomnia confirm home medications, restart as appropriate VTE: SCD Code: Full Dispo: Back to [place] - [place] Pending further improvement, afebrile > 24hrs
[2023-03-18 12:55] VITALS: O2SAT 93; BMI 27.6
[2023-03-18] MEDS: VANCOMYCIN 1.5 GM in NA CHLORIDE 0.9% 500 ML IVPB SCH (16:51)
[2023-03-18] MEDS: DIVALPROEX NA 125 MG CAP PO SCH (20:58)
[2023-03-18] MEDS: ATORVASTATIN 20 MG TAB PO SCH (20:58)
[2023-03-18] MEDS: MIRTAZAPINE 15 MG TAB PO SCH (20:59)
[2023-03-18] MEDS: TAMSULOSIN 0.4 MG SR CAP PO SCH (21:00)
[2023-03-19] MEDS: INSULIN GLARGINE 100 UNIT/ML SQ SCH ×2 (00:22→20:35)
[2023-03-19] MEDS: Meropenem 1,000 MG in NA CHLORIDE 0.9% 100 ML IV SCH ×3 (00:22→20:19)
[2023-03-19] MEDS: LEVOTHYROXINE SOD 0.075 MG TAB PO SCH (07:19)
--- NOTE | 2023-03-19 07:51 | P.PN ---
Date of Service: 03/19/23 Subjective: no acute events overnight afebrile ROS: 10 point ROS as noted above, otherwise negative Physical Exam: GEN: Alert, NAD, nonverbal, but understands, nods yes/no HEENT: Normal conjunctiva, sclera anicteric CV: Regular rate and rhythm, no edema Pulm: Nonlabored respirations on room air, Diminished at bases b/l ABD: Soft, nontender, nondistended MSK: Right AKA, now s/p left great toe amputation, surgical dressing c/d/i Neuro: Right hemiparesis, nonverbal - nods yes/no vitals reviewed Problem List: Sepsis secondary to left great toe gangrene, now s/p transmetatarsal amputation of left great toe (03/15) Acute cystitis Severe Peripheral vascular disease Acute Fall History of CVA right hemiparesis, aphasia, dysphagia Normocytic anemia Hypoalbuminemia IDDM2 Hypothyroidism Hypertension anxiety, depression insomnia Sepsis secondary to left great toe gangrene, now s/p transmetatarsal amputation of left great toe (03/15) xray Foot (03/13): Sequelae of amputation of the tuft of the first digit distal phalanx. No findings to suggest ongoing osteomyelitis General surgery consulted - Dr. Crane s/p Transmetatarsal Amputation of L Great Toe (03/15) continue empiric vanc / merrem (03/14-) now s/p amputation, de-escalate in next 24hrs - waiting final recs afebrile, no leukocytosis blood cx (03/13): NGTD Acute cystitis Urine cx (03/13): MDR Enterococcus Faecalis asymptomatic enriquez placed in ED; dc'd 03/17 voiding without issues after enriquez dc'd denies urinary symptoms, no retention Severe Peripheral vascular disease Doppler u/s (03/14): Monophasic waveforms throughout the left lower extremity. moderate-severe stenosis more proximally in the pelvis CTA Left lower extremity (03/17): High-grade stenosis is noted at the bifurcation of the left common femoral artery. The proximal and mid left superficial femoral artery shows extensive multifocal hard plaquing Cardiology consulted Dr. Hutchison to review CTA; further recommendations appreciated Acute Fall history of CVA right hemiparesis, aphasia, dysphagia CT head (03/13): No evidence of an acute intracranial process.Chronic findings as above, most compatible with sequelae of remote ischemia. continue supportive care continue PT Normocytic anemia Hypoalbuminemia hypoalbuminemia 2.7 Continue to monitor IDDM2 Accu-Cheks, sliding scale insulin Hypertension Hypothyroidism Anxiety, depression insomnia confirm home medications, restart as appropriate VTE: SCD Code: Full Dispo: Back to [place] - [place] Pending further improvement / recommendations regarding PAD
--- NOTE | 2023-03-19 08:23 | P.CNS ---
Date of Consult: 03/19/23 Reason for Consult: E.faecalis UTI Chief Complaint: Leukocytosis History of Present Illness: Patient is a 62 yo male with a past medical history of CVA with residual right sided weakness, diabetes mellitus, hypothyroidism and hypertension who presented to the ED from [facility] after falling out of bed at the skilled nursing. Patient was admitted for sepsis secondary to left great toe gangrene. He underwent amputation of left great toe on 03/[address] Crane. Infectious disease was consulted for Enterococcus faecalis UTI. Allergies No Known Allergies Allergy (Unverified 03/13/23 21:34) Home medications list reviewed: Yes Home Medications: Acetaminophen [Tylenol] 650 mg PO Q6HP PRN 03/13/23 Ascorbic Acid [C-500] 500 mg PO DAILY 03/13/23 Aspirin 81 mg PO DAILY 03/13/23 Atorvastatin Calcium [Lipitor] 20 mg PO BEDTIME 03/13/23 Cholecalciferol (Vitamin D3) [Vitamin D 5,000 Iu Cap] 5,000 unit PO UD 03/13/23 Cyanocobalamin [Vitamin B-12] 1,000 mcg PO DAILY 03/13/23 Divalproex [Depakote Sprinkle] 4 cap PO BEDTIME 03/13/23 Furosemide [Lasix] 20 mg PO DAILY 03/13/23 Insulin Glargine,Hum.rec.anlog [Lantus Solostar] 30 unit SQ BEDTIME 03/13/23 Insulin Regular, Human [Novolin R] See Protocol IJ ACHS 03/13/23 Levothyroxine [Synthroid] 75 mcg PO [id number] 03/13/23 Metoprolol Tartrate [Lopressor] 12.5 mg PO BID 03/13/23 Mirtazapine [Remeron] 7.5 mg PO BEDTIME 03/13/23 Nitroglycerin [Nitrostat] 0.4 mg SL SEECOM 03/13/23 Tamsulosin [Flomax] 0.4 mg PO BEDTIME 03/13/23 Zinc Gluconate [Zinc] 50 mg PO DAILY 03/13/23 - Past Medical/Surgical History Diabetic: Yes -: CVA R) weakness, aphasia -: R)AKA -: HTN -: HLD -: anxiety, depression -: PVD -: hypothyroidism -: Diabetes -: R)AKA -: L) great toe amputation Psychosocial/ Personal History: Res[facility] - Social History Smoking Status: Unknown if ever smoked Alcohol use: No CD- Drugs: No Caffeine use: No Review of Systems Unremarkable Physical Examination Temp Pulse Resp BP Pulse Ox 98.6 F 75 18 147/53 H 93 03/19/23 04:00 03/19/23 04:00 03/19/23 04:00 03/19/23 04:00 03/19/23 04:00 General: In no apparent distress HEENT: Atraumatic Respiratory: Normal air movement, Diminished (at bases) Gastrointestinal: Normal bowel sounds, Soft and benign Musculoskeletal: Other (s/p amputation left 1st toe dressing clean dry and intact. Prior Right AKA. ) Neurological: Other (prior cva with right hemiparesis, aphasia) Laboratory Data - Reviewed Microbiology Data - Reviewed Imagings Data: - Reviewed Conclusions/Impression: Problem List Sepsis secondary to gangrene left great toe Acute Cystitis Severe Peripheral Vascular Disease Diabetes Mellitus type II Hypothyroidism Hypertension Prior CVA Urinary Tract Infection, Enterococcus faecalis - Urine culture 03/13: Enterococcus faecalis - Currently on Vancomycin (started 03/13) Sepsis secondary to left great toe gangrene - s/p amputation of left great toe on 03/[address] Crane. - Has been on Meropenem and Vancomycin Blood cultures 03/13: No growth to date Leukocytosis resolved Afebrile Severe PVD: cardiology following Recommendations - E. faecalis UTI: Continue antibiotic therapy for 7 days. On day 7 of 7 Vancomycin IV. - s/p amputaiton right great toe: Consider switch to Ciprofloxacin PO and D oxycycline PO to complete 7 days of antibiotic therapy postoperatively upon discharge. - Monitor wound for worsening s/s of infection - Continue wound care per Dr. Crane - Strict blood glucose control - Follow up with wound care / Dr. Crane as outpatient. Case discussed with Sharon Johnson
[2023-03-19] MEDS: FUROSEMIDE 20 MG TABLET PO SCH (10:37)
[2023-03-19] MEDS: ASPIRIN 81 MG CHEWABLE TABLET PO SCH (10:37)
[2023-03-19 10:38] LABS: Magnesium 2.1 mg/dL (1.6-2.4)
[2023-03-19] MEDS: CYANOCOBALAMIN 1,000 MCG TAB PO SCH (10:38)
[2023-03-19] MEDS: METOPROLOL TAR 25 MG TAB PO SCH ×2 (10:38→20:18)
[2023-03-19] MEDS: ASCORBIC ACID 500 MG TABLET PO SCH (10:39)
[2023-03-19] MEDS: INSULIN REGULAR (HUMAN) 100 UNIT/ML SQ SCH ×4 (10:39→20:34)
[2023-03-19] MEDS: VANCOMYCIN 1.5 GM in NA CHLORIDE 0.9% 500 ML IVPB SCH (16:30)
[2023-03-19] MEDS: DIVALPROEX NA 125 MG CAP PO SCH (20:17)
[2023-03-19] MEDS: MIRTAZAPINE 15 MG TAB PO SCH (20:18)
[2023-03-19] MEDS: ATORVASTATIN 20 MG TAB PO SCH (20:18)
[2023-03-19] MEDS: TAMSULOSIN 0.4 MG SR CAP PO SCH (20:18)
[2023-03-19] MEDS: GLUCERNA SHAKE 237 ML CAN PO SCH (20:19)
[2023-03-20] MEDS: LEVOTHYROXINE SOD 0.075 MG TAB PO SCH (05:56)
[2023-03-20] MEDS: INSULIN REGULAR (HUMAN) 100 UNIT/ML SQ SCH ×2 (07:30→13:08)
[2023-03-20 08:52] VITALS: TEMP 97.2
[2023-03-20] MEDS ORDERED: CIPROFLOXACIN HCL 500 MG TAB PO SCH (09:00)
[2023-03-20] MEDS ORDERED: DOXYCYCLINE 100 MG CAP PO SCH (09:00)
[2023-03-20] MEDS: GLUCERNA SHAKE 237 ML CAN PO SCH (09:00)
[2023-03-20] MEDS: CYANOCOBALAMIN 1,000 MCG TAB PO SCH (09:26)
[2023-03-20] MEDS: METOPROLOL TAR 25 MG TAB PO SCH (09:26)
[2023-03-20] MEDS: ASCORBIC ACID 500 MG TABLET PO SCH (09:27)
[2023-03-20] MEDS: FUROSEMIDE 20 MG TABLET PO SCH (09:27)
[2023-03-20] MEDS: ASPIRIN 81 MG CHEWABLE TABLET PO SCH (09:27)
--- NOTE | 2023-03-20 10:43 | P.DS ---
Admission Date: 03/13/23 Discharge Date: 03/20/23 Disposition: TRANSFER TO CUSTODIAL Discharge Condition: GOOD Reason for Admission: Leukocytosis Consultations: Cardiology - Dr. Hutchison General surgery -Dr. Crane Infectious Disease - Dr. Barry Brief History of Present Illness: 62yo M, PMH: CVA, diabetes, hypothyroidism, hypertension, PVD, aphasia, dysphagia, anemia, anxiety, depression, insomnia, Patient presents to the emergency room via EMS from [facility] with after falling out of bed from the [facility] today. senior living also reported patient had a fever, and is currently being treated for gangrene of the left toe. Patient is aphasic with right-sided weakness from previous CVA. Patient responds to verbal with head nods, no reported shortness of breath or chest pain, plan to admit for sepsis without shock, Gangrenous wound to the left great toe with surgery consulted. ER evaluation EKG rate is 98 beats/min. Rhythm is regular. Left axis deviation noted. ME interval is normal at 162 msec. QRS interval is normal. QT interval is normal at 344 msec. No Q waves. T waves are Normal. No ST changes noted. Clinical impression: Sinus Rhythm with occasional premature ventricular complexes. Vital signs4 BP 99 / 59; Pulse 96; Resp 18; Temp 100.3(O); Pulse Ox 95% on R/A patient was treated with cefepime and vancomycin in the emergency room. Left foot x-ray IMPRESSION: Sequelae of amputation of the tuft of the first digit distal phalanx. No findings to suggest ongoing osteomyelitis. If there is persistent clinical suspicion, additional evaluation by MRI would prov drew improved sensitivity. Chest x-ray MPRESSION: Small left costophrenic is airspace opacity, could reflect atelectasis or early airspace disease. CT of the brain IMPRESSION: No evidence of an acute intracranial process.Chronic findings as above, most compatible with sequelae of remote ischemia. Laboratory evaluation CBC leukocytosis 13.50, early left shift, normocytic anemia 11.1 35.1, hypoalbuminemia 2.7 UA positive for acute cystitis leukoesterase greater than 250 10-11 WBCs Hospital Course: Problem List: Sepsis secondary to left great toe gangrene, now s/p transmetatarsal amputation of left great toe (03/15) Acute cystitis Severe Peripheral vascular disease Acute Fall History of CVA right hemiparesis, aphasia, dysphagia Normocytic anemia Hypoalbuminemia IDDM2 Hypothyroidism Hypertension anxiety, depression insomnia Patient presented with fever, gangrene of the left toe. General surgery was consulted. Patient was taken to OR on 03/15 for transmetatarsal amputation of left great toe with Dr. Crane. He was given empiric vanc and merrem throughout hospitalization. Patient remained afebrile post operatively without leukocytosis. Blood cultures without growth. Patient is to complete 10 more days of ciprofloxacin / doxycycline on discharge. Urine culture on admission grew MDR enterococcus faecalis. Patient completed 7 day course of vancomycin. Patient was asymptomatic, denied urinary symptoms. Reinoso was placed in the ED and removed 03/17. No trouble voiding after removal. During his hospitalization, arterial doppler of the LLE noted Monophasic waveforms, moderate to severe stenosis more proximally in the pelvis. Cardiology was consulted. Patient was taken for peripheral angiogram which noted High-grade stenosis is noted at the bifurcation of the left common femoral artery with the proximal and mid left superficial femoral artery shows extensive multifocal hard plaquing. Recommend follow up with vascular surgery in next few weeks for further evaluation / work up. Can discuss further with PCP/Dr. Crane on vascular surgeon recommendations. Medications: Ciprofloxaxin and Doxycycline (x10 days) Follow up: PCP 3-5 days Cardiology in 1-[address] Crane in 1 week Wound care on discharge: Daily dressing changes with Vashe packing damp to dry, wrap and elevate Physical Exam: GEN: Alert, NAD, nonverbal, but understands, nods yes/no HEENT: Normal conjunctiva, sclera anicteric CV: Regular rate and rhythm, no edema Pulm: Nonlabored respirations on room air, clear bilaterally ABD: Soft, nontender, nondistended MSK: Right AKA, now s/p left great toe amputation, surgical dressing c/d/i Neuro: Right hemiparesis, nonverbal - nods yes/no Vital Signs/Physical Exam: Temp Pulse Resp BP Pulse Ox 97.2 F 70 18 151/70 H 97 03/20/23 08:00 03/20/23 09:27 03/20/23 08:00 03/20/23 09:27 03/20/23 08:00 Laboratory Data at Discharge: WBC 6.40 thou/uL (4.3-10.9) 03/18/23 05:26 Hgb 10.3 g/dL (13.6-17.9) L D 03/18/23 05:26 Hct 29.7 % (39.6-49.0) L 03/18/23 05:26 Plt Count 222 thou/uL (152-406) 03/18/23 05:26 PT 13.9 SECONDS (9.5-12.5) H 03/13/23 17:55 INR 1.26 03/13/23 17:55 APTT 34.9 SECONDS (24.3-36.9) 03/14/23 02:55 Sodium 140 mEq/L (136-145) 03/19/23 10:11 Potassium 4.0 mEq/L (3.5-5.1) 03/19/23 10:11 BUN 8 mg/dL (7-18) 03/19/23 10:11 Creatinine 0.77 mg/dL (0.70-1.30) 03/19/23 10:11 Glucose 185 mg/dL (74-106) H 03/19/23 10:11 Phosphorus 2.8 mg/dL (2.5-4.9) 03/18/23 05:26 Magnesium 2.1 mg/dL (1.6-2.4) 03/19/23 10:11 Total Bilirubin 0.5 mg/dL (0.2-1.0) 03/13/23 17:55 AST 14 U/L (15-37) L 03/13/23 17:55 ALT 13 U/L (16-61) L 03/13/23 17:55 Alkaline Phosphatase 64 U/L (45-117) 03/13/23 17:55 Home Medications: Acetaminophen [Tylenol] 650 mg PO Q6HP PRN 03/13/23 Ascorbic Acid [C-500] 500 mg PO DAILY 03/13/23 Aspirin 81 mg PO DAILY 03/13/23 Atorvastatin Calcium [Lipitor*] 20 mg PO BEDTIME 03/13/23 Cholecalciferol (Vitamin D3) [Vitamin D 5,000 IU Cap*] 5,000 unit PO UD 03/13/23 Cyanocobalamin [Vitamin B-12*] 1,000 mcg PO DAILY 03/13/23 Divalproex [Depakote Sprinkle*] 4 cap PO BEDTIME 03/13/23 Furosemide [Lasix] 20 mg PO DAILY 03/13/23 Insulin Glargine,Hum.rec.anlog [Lantus Solostar] 30 unit SQ BEDTIME 03/13/23 Insulin Regular, Human [Novolin R] See Protocol IJ ACHS 03/13/23 Levothyroxine [Synthroid*] 75 mcg PO [id number] 03/13/23 Metoprolol Tartrate [Lopressor*] 12.5 mg PO BID 03/13/23 Mirtazapine [Remeron*] 7.5 mg PO BEDTIME 03/13/23 Nitroglycerin [Nitrostat*] 0.4 mg SL SEECOM 03/13/23 Tamsulosin [Flomax*] 0.4 mg PO BEDTIME 03/13/23 Zinc Gluconate [Zinc] 50 mg PO DAILY 03/13/23 Ciprofloxacin HCl [Cipro 500 MG Tablet] 500 mg PO BID 10 Days #20 tab 03/20/23 Doxycycline Hyclate 100 mg PO BID 10 Days #20 tab 03/20/23 New Medications: Ciprofloxacin HCl [Cipro 500 MG Tablet] 500 mg PO BID 10 Days #20 tab Doxycycline Hyclate 100 mg PO BID 10 Days #20 tab Physician Discharge Instructions: Patient presented with fever, gangrene of the left toe. General surgery was consulted. Patient was taken to OR on 03/15 for transmetatarsal amputation of left great toe with Dr. Crane. He was given empiric vanc and merrem throughout hospitalization. Patient remained afebrile post operatively without leukocytosis. Blood cultures without growth. Patient is to complete 10 more days of ciprofloxacin / doxycycline on discharge. Urine culture on admission grew MDR enterococcus faecalis. Patient completed 7 day course of vancomycin. Patient was asymptomatic, denied urinary symptoms. Reinoso was placed in the ED and removed 03/17. No trouble voiding after removal. During his hospitalization, arterial doppler of the LLE noted Monophasic waveforms, moderate to severe stenosis more proximally in the pelvis. Cardiology was consulted. Patient was taken for peripheral angiogram which noted High-grade stenosis is noted at the bifurcation of the left common femoral artery with the proximal and mid left superficial femoral artery shows extensive multifocal hard plaquing. Recommend follow up with vascular surgery in next few weeks for further evaluation / work up. Can discuss further with PCP/Dr. Crane on vascular surgeon recommendations. Medications: Ciprofloxaxin and Doxycycline (x10 days) Follow up: PCP 3-5 days Cardiology in 1-[address] Crane in 1 week Wound care on discharge: Daily dressing changes with Vashe packing damp to dry, wrap and elevate Followup: Papito Crane MD [ACTIVE - CAN ADMIT] - Unknown,U [Primary Care Provider] - Time spent managing pt's care (in minutes): 45
[2023-03-20 14:11] VITALS: BP 144/55
== END 2023-03-20 15:26 | DRG 854 ==
LOC: ER 16:30 → ERHOLD 19:45 → 2ND 20:47
PROVIDERS: ADMIT Internal Medicine Sleep Medicine; ATTEND Hospitalist
PROC: 0Y6Q0Z0 Detachment at Left 1st Toe, Complete, Open Approach (ICD-10-PCS; principal; 2023-03-15 17:30)
DX: A41.81 Sepsis due to Enterococcus (principal); E11.52 Type 2 diabetes mellitus with diabetic peripheral angiopathy with gangrene; I69.351 Hemiplegia and hemiparesis following cerebral infarction affecting right dominant side; N30.00 Acute cystitis without hematuria; R65.20 Severe sepsis without septic shock; I69.320 Aphasia following cerebral infarction; E03.9 Hypothyroidism, unspecified; D64.9 Anemia, unspecified; F41.9 Anxiety disorder, unspecified; F32.A Depression, unspecified; I10 Essential (primary) hypertension; G47.00 Insomnia, unspecified; E88.09 Other disorders of plasma-protein metabolism, not elsewhere classified; I69.391 Dysphagia following cerebral infarction; R13.10 Dysphagia, unspecified; Z79.4 Long term (current) use of insulin; Z95.1 Presence of aortocoronary bypass graft; Z79.82 Long term (current) use of aspirin; Z79.890 Hormone replacement therapy; Z89.611 Acquired absence of right leg above knee; Z79.899 Other long term (current) drug therapy; W06.XXXA Fall from bed, initial encounter; Y93.9 Activity, unspecified; Y99.9 Unspecified external cause status; Y92.122 Bedroom in nursing home as the place of occurrence of the external cause
CPT/HCPCS: 36415; 51702; 70450; 71045; 73706; 76937; 80048; 80053; 80202; 81001; 82947; 83605; 83735; 84100; 85025; 85610; 85730; 87040; 87077; 87086; 87088; 87186; 88305; 93005; 93926; 96365; 96367; 97110; 97161; 97530; 99285; C1893; J0461; J0692; J1170; J1644; J1815; J2001; J2185; J2250; J2704; J3010; J3475; J3480; J7030; J7040; J7050; Q9967

== ENCOUNTER 2023-04-06 18:59 | Inpatient (IN) | payer OTHER ==
[~2023-04-06 18:59] MED LIST: VANCOMYCIN 1.5 GM in NA CHLORIDE 0.9% 500 ML IVPB SCH
[2023-04-06 19:43] LABS: Absolute Lymphocytes (CBC) 1.6 K/uL (0.7-4.9); Hematocrit 29.4 % (39.6-49.0); Lymphocytes % 22.3 % (15.3-44.8); MCV 89.2 fL (80-100); MPV 7.5 fL (7.6-11.3); Platelets 289 thou/uL (152-406)
[2023-04-06 20:01] LABS: Albumin 2.1 g/dL (3.4-5.0); Bilirubin Total 0.3 mg/dL (0.2-1.0); C-Reactive Protein 98.9 mg/L (<3.00); Potassium 3.6 mEq/L (3.5-5.1); Protein, Total 7.8 g/dL (6.4-8.2)
--- NOTE | 2023-04-06 20:14 | RAD REPORT ---
EXAM DESCRIPTION: RAD - Foot Left 3 View - 04/06/2023 8:00 pm CLINICAL HISTORY: pain sp infection COMPARISON: Foot Left 3 View dated 03/14/2023; Foot Left 3 View dated 03/13/2023; Lower Ext Angio da sasha 03/17/2023 TECHNIQUE: Left foot, 3 views. FINDINGS: Status post amputation at the level of the first metatarsal distal metaphysis. Soft tissue irregularity, defect, and swelling, extending to the level of the bone stump which shows osseous irr egularity. No dislocation. Rarefaction suspected at the medial/plantar aspect of the second and third metatarsal heads. No air or foreign body in the soft tissues. IMPRESSION: Osseous irregularity at the first metatarsal stump, with soft tissue irregularity and de fect extending to the level of the bone. Right infection suspected at the medial/plantar aspect of th e second and third metatarsal heads. Findings raise concern for ongoing osteomyelitis.
--- NOTE | 2023-04-06 20:24 | EDPHYS ---
Physician Documentation [facility] Name: Ariel Andrews Age: 62 yrs Sex: Male : 1960 Arrival Date: 04/06/2023 Time: 18:59 Bed 14 Private MD: ED Physician Ric Scott HPI: 04/06 19:22 This 62 yrs old Male presents to ER via EMS with complaints of wound L foot, black . jr11 19:22 The affected area is on the medial aspect of left toes and left foot. Patient was jr11 admitted at the end of February for gangrene of his left big toe, but was sent back from the assisted for necrotic foot, concern for ongoing infection. Patient is aphasic, unable to provide any history, shakes his head that he is not in pain. Unable to obtain review of system. Dr Bañuelos surgeon. Historical: - Allergies: 19:02 No Known Allergies; kc6 - PMHx: 19:02 Anemia; Anxiety; Aphasia; Cerebrovascular accident; depressive disorder; diabetes kc6 mellitus; DYSPHAGIA; Hypertensive disorder; Hypothyroidism; insomnia; peripheral vascular disease; Transient cerebral ischemia; - PSHx: 19:02 Coronary artery bypass graft; right AKA; left toe amputation (right AKA); kc6 - Immunization history:: Adult Immunizations unknown. - Social history:: Smoking status: unknown. ROS: 19:22 Unable to obtain ROS due to aphasic , jr11 Exam: 19:22 Constitutional: This is a well developed, well nourished patient who is awake, alert, jr11 and in no acute distress. Head/Face: Normocephalic, atraumatic. ENT: Nares patent. No nasal discharge, no septal abnormalities noted. Oropharynx with no redness, swelling, or masses, exudates, or evidence of obstruction, uvula midline. Mucous membranes moist. Chest/axilla: Normal chest wall appearance and motion. Nontender with no deformity. No lesions are appreciated. Cardiovascular: Regular rate and rhythm with a normal S1 and S2. No gallops, murmurs, or rubs. Normal PMI, no JVD. No pulse deficits. Abdomen/GI: Soft, non-tender, with normal bowel sounds. No distension or tympany. No guarding or rebound. No evidence of tenderness throughout. Skin: Patient with necrotic wound base, mild surrounding erythema cellulitis with foul smell, poor distal pulses, warm foot. Right, AKA. Vital Signs: 19:01 BP 122 / 59; Pulse 73; Resp 16 S; Temp 98.8(O); Pulse Ox 98% on R/A; Weight 84 kg (M); kc6 Height 5 ft. 11 in. (R); 21:12 BP 134 / 57; Pulse 76; Resp 17 S; Pulse Ox 97% on R/A; lg3 19:01 Body Mass Index 25.83 (84.00 kg, 180.34 cm) [facility] MDM: 19:18 Patient medically screened. [facility] [[email or web address]] 19:22 Differential diagnosis: cellulitis, Wound infection, will rule out osteomyelitis. Data [facility] [[email or web address]] reviewed: vital signs, nurses notes. 20:22 ED course: Spoke with admitting team Crystal, will admit for osteo. XR interpreted by me jr11 shows +osteo.. 04/06 19:18 Order name: CBC with Diff; Complete Time: 19:59 [facility] [[email or web address]] 04/06 19:18 Order name: CMP; Complete Time: 20:03 [facility] [[email or web address]] 04/06 19:18 Order name: CRP; Complete Time: 20:03 [facility] [[email or web address]] 04/06 19:18 Order name: Blood Culture Adult (2) [facility] [[email or web address]] 04/06 19:18 Order name: Lactate w/ 2H reflex if indic.; Complete Time: 20:48 [facility] [[email or web address]] 04/06 19:45 Order name: Glucose, Ancillary Testing; Complete Time: 19:59 EDMS 04/06 19:18 Order name: Foot Left 3 View XRAY; Complete Time: 20:16 [facility] [[email or web address]] Administered Medications: 20:51 Drug: Cefepime IVPB 1 grams IVPB at 200 ml/hr once over 30 mins; (mix in NS 100 mL) lg3 Route: IVPB; Rate: 200 ml/hr; Infused Over: 30 mins; Site: left upper arm; 21:46 Follow up: Response: No adverse reaction; IV Status: Completed infusion; IV Intake: lg3 100ml 21:06 Drug: vancoMYCIN IVPB 15 mg/kg IVPB once; once over 2 hrs; not to exceed 2 grams; (mix lg3 in 250 to 500 mL NS) Route: IVPB; Site: left upper arm; 21:47 Follow up: Response: No adverse reaction; IV Status: Infusion continued upon admission lg3 Disposition Summary: 04/06/23 20:24 Hospitalization Ordered Notes: Hospitalization Status: Observation [facility] [[email or web address]] Provider: Veronica Irving jr Location: Telemetry/MedSur (observation) [facility] [[email or web address]] Condition: Stable jr Problem: an acute exacerbation jr11 Symptoms: have worsened jr11 Bed/Room Type: Standard [facility] [email or web address]] Room Assignment: 217(04/06/23 21:14) Diagnosis - Osteomyelitis, unspecified [facility] [email or web address]] Forms: - Medication Reconciliation Form jr11 - SBAR form [facility] [[email or web address]] - Leadership Thank You Letter [facility] [[email or web address]] Signatures: Dispatcher [employer] Marjan Johnson RN RN cg Nina Singer RN RN lg3 Ric Scott MD MD jr11 Ericka Nelson RN RN [email or web address] Nani Greenfield PA-C PA-C [id number] Corrections: (The following items were deleted from the chart) 21: 20:24 [facility] [email or web address]] cg
--- NOTE | 2023-04-06 20:24 | ER ---
Nurse's Notes [facility] Name: Ariel Andrews Age: 62 yrs Sex: Male : 1960 Arrival Date: 04/06/2023 Time: 18:59 Bed 14 Private MD: Diagnosis: Osteomyelitis, unspecified Presentation: 04/06 19:01 Chief complaint: EMS states: pt is from [place]. reports recent left toe amputation kc6 with surgical site necrosis. Coronavirus screen: At this time, the client does not indicate any symptoms associated with coronavirus-19. Ebola Screen: No symptoms or risks identified at this time. Initial Sepsis Screen: Does the patient meet any 2 criteria? No. Patient's initial sepsis screen is negative. Does the patient have a suspected source of infection? No. Patient's initial sepsis screen is negative. Risk Assessment: Do you want to hurt yourself or someone else? Patient reports no desire to harm self or others. Onset of symptoms was April 06, 2023. 19:01 Method Of Arrival: EMS: [facility] kc6 19:01 Acuity: CROW 3 kc6 Historical: - Allergies: 19:02 No Known Allergies; kc6 - PMHx: 19:02 Anemia; Anxiety; Aphasia; Cerebrovascular accident; depressive disorder; diabetes kc6 mellitus; DYSPHAGIA; Hypertensive disorder; Hypothyroidism; insomnia; peripheral vascular disease; Transient cerebral ischemia; - PSHx: 19:02 Coronary artery bypass graft; right AKA; left toe amputation (right AKA); kc6 - Immunization history:: Adult Immunizations unknown. - Social history:: Smoking status: unknown. Screenin:15 [facility] ED Fall Risk Assessment (Adult) History of falling in the last 3 months, lg3 including since admission No falls in past 3 months (0 pts). Abuse screen: Denies threats or abuse. Denies injuries from another. Nutritional screening: No deficits noted. Tuberculosis screening: No symptoms or risk factors identified. Assessment: 19:15 General: Appears in no apparent distress. comfortable, Behavior is calm, cooperative. lg3 Pain: Denies pain. Neuro: No deficits noted. Alanis Agitation-Sedation Scale (RASS): 0 - Alert and Calm Level of Consciousness is awake, alert, obeys commands, Oriented to person, place, situation. Cardiovascular: No deficits noted. Denies chest pain, shortness of breath, Capillary refill < 3 seconds Clubbing of nail beds is absent JVD is absent Patient's skin is warm and dry. Respiratory: No deficits noted. Airway is patent Respiratory effort is even, unlabored, Respiratory pattern is regular, symmetrical. GI: No deficits noted. No signs and/or symptoms were reported involving the gastrointestinal system. : No deficits noted. No signs and/or symptoms were reported regarding the genitourinary system. EENT: No deficits noted. No signs and/or symptoms were reported regarding the EENT system. EENT:. Derm: Skin is intact, Skin is dry, Skin is normal, Skin temperature is warm Wound noted left foot. Musculoskeletal: Amputation of medial aspect of left toes and right leg. 19:15 General: aphasia present at baseline. lg3 21:22 General: attempted to call report. no answer. lg3 Vital Signs: 19:01 BP 122 / 59; Pulse 73; Resp 16 S; Temp 98.8(O); Pulse Ox 98% on R/A; Weight 84 kg (M); kc6 Height 5 ft. 11 in. (R); 21:12 BP 134 / 57; Pulse 76; Resp 17 S; Pulse Ox 97% on R/A; lg3 19:01 Body Mass Index 25.83 (84.00 kg, 180.34 cm) kc6 ED Course: 19:00 Patient arrived in ED. eh3 19:02 Triage completed. kc6 19:02 Ric Scott MD is Attending Physician. jr11 19:02 Arm band placed on. kc6 19:15 Patient has correct armband on for positive identification. Placed in gown. Bed in low lg3 position. Call light in reach. Side rails up X2. Client placed on continuous cardiac and pulse oximetry monitoring. NIBP monitoring applied. court monitor on. Door closed. Noise minimized. Warm blanket given. 19:15 Patient maintains SpO2 saturation greater than 95% on room air. lg3 20:01 Foot Left 3 View XRAY In Process Unspecified. EDMS 20:20 Missed attempt(s): 22 gauge Bleeding controlled, band aid applied, catheter tip intact. oe 20:23 Veronica Irving MD is Hospitalizing Provider. jr11 20:27 Nina Singer RN is Primary Nurse. lg3 20:42 Inserted 20g 10cm midline to left upper arm. as6 21:05 Dressings: Adaptic X 2; left foot Kerlix X 1; medial aspect of left toes and left foot. pf1 21:22 No provider procedures requiring assistance completed. Patient admitted, IV remains in lg3 place. Administered Medications: 20:51 Drug: Cefepime IVPB 1 grams IVPB at 200 ml/hr once over 30 mins; (mix in NS 100 mL) lg3 Route: IVPB; Rate: 200 ml/hr; Infused Over: 30 mins; Site: left upper arm; 21:46 Follow up: Response: No adverse reaction; IV Status: Completed infusion; IV Intake: lg3 100ml 21:06 Drug: vancoMYCIN IVPB 15 mg/kg IVPB once; once over 2 hrs; not to exceed 2 grams; (mix lg3 in 250 to 500 mL NS) Route: IVPB; Site: left upper arm; 21:47 Follow up: Response: No adverse reaction; IV Status: Infusion continued upon admission lg3 Medication: 21:22 VIS not applicable for this client. lg3 Intake: 21:46 IV: 100ml; Total: 100ml. lg3 Outcome: 20:24 Decision to Hospitalize by Provider. jr11 21:46 Admitted to Med/surg accompanied by tech, via stretcher, room 217, Report called to lg Yoana 21:46 Condition: stable 21:46 Instructed on the need for admit, Demonstrated understanding of instructions, 22:17 Patient left the ED. lg3 Signatures: Dispatcher [employer] EDMN Preston Zapata Lacie RN RN lg3 Sam Sprague RN RN as6 Ric Scott MD MD jr11 Iris Ling RN RN 3 Ericka Nelson RN RN kc6 Carmenza Styles RN RN pf1 Corrections: (The following items were deleted from the chart) 19:20 19:15 Neuro: No deficits noted. Alanis Agitation-Sedation Scale (RASS): 0 - Alert and lg3 Calm Level of Consciousness is awake, alert, obeys commands, Oriented to person, place, situation, lg3 19:21 19:15 General: aphasia present. lg3 lg3
--- NOTE | 2023-04-06 20:53 | P.HP ---
Certification for Inpatient Patient admitted to: Inpatient With expected LOS: <2 Midnights Patient will require the following post-hospital care: None Practitioner: I am a practitioner with admitting privileges, knowledge of patient current condition, hospital course, and medical plan of care. Services: Services provided to patient in accordance with Admission requirements found in Title 42 Section 412.3 of the Code of Federal Regulations Patient History Date of Service: 04/06/23 Primary Care Provider: Sanjana Reason for admission: Osteomyelitis Left Foot History of Present Illness: Mr. Andrews is a 62-year-old male with past medical history of CVA with resulting aphasia, insulin dependent type 2 diabetes, hypothyroidism, hypertension, and PVD who presents to the emergency room via EMS from [facility] with concerns of infection at surgical site from great toe amputation 3 weeks ago. Amputation site clearly gangrenous and necrotic with malodorous green discharge. His vital signs are stable. Labs today are significant for WBC 7, hemoglobin 9.9, CRP 98.9, lactate 1.2. Foot xray showed "Osseous irregularity at the first metatarsal stump, with soft tissue irregularity and defect extending to the level of the bone. Right infection suspected at the medial/plantar aspect of the second and third metatarsal heads. Findings raise concern for ongoing osteomyelitis." I contacted Dr. Crane who performed the amputation and stated that patient did not follow-up for any sort of wound care or further vascular work-up. Additionally, Dr. Crane is going out of town tomorrow and requested for us to contact the [facility] surgeon. Therefore, I spoke with Dr. Barakat who does not think that this is surgical but agreed to consult. In the emergency department, he was started on vancomycin and cefepime. Blood cultures were obtained prior. We will admit the patient for further management of osteomyelitis. Allergies No Known Allergies Allergy (Unverified 03/13/23 21:34) Home medications list reviewed: Yes Home Medications: Acetaminophen [Tylenol] 650 mg PO Q6HP PRN 03/13/23 Ascorbic Acid [C-500] 500 mg PO DAILY 03/13/23 Aspirin 81 mg PO DAILY 03/13/23 Atorvastatin Calcium [Lipitor*] 20 mg PO BEDTIME 03/13/23 Cholecalciferol (Vitamin D3) [Vitamin D 5,000 IU Cap*] 5,000 unit PO UD 03/13/23 Cyanocobalamin [Vitamin B-12*] 1,000 mcg PO DAILY 03/13/23 Divalproex [Depakote Sprinkle*] 4 cap PO BEDTIME 03/13/23 Furosemide [Lasix] 20 mg PO DAILY 03/13/23 Insulin Glargine,Hum.rec.anlog [Lantus Solostar] 30 unit SQ BEDTIME 03/13/23 Insulin Regular, Human [Novolin R] See Protocol IJ ACHS 03/13/23 Levothyroxine [Synthroid*] 75 mcg PO [id number] 03/13/23 Metoprolol Tartrate [Lopressor*] 12.5 mg PO BID 03/13/23 Mirtazapine [Remeron*] 7.5 mg PO BEDTIME 03/13/23 Nitroglycerin [Nitrostat*] 0.4 mg SL SEECOM 03/13/23 Tamsulosin [Flomax*] 0.4 mg PO BEDTIME 03/13/23 Zinc Gluconate [Zinc] 50 mg PO DAILY 03/13/23 Ciprofloxacin HCl [Cipro 500 MG Tablet] 500 mg PO BID 10 Days #20 tab 03/20/23 Doxycycline Hyclate 100 mg PO BID 10 Days #20 tab 03/20/23 - Past Medical/Surgical History Diabetic: Yes -: CVA R) weakness, aphasia -: Diabetes -: HTN -: HLD -: Anxiety, Depression -: PVD -: hypothyroidism -: Right AKA -: Left great toe amputation Psychosocial/ Personal History: Resides [facility] HOME - Family History Family History: Reviewed- Non-Contributory - Social History Smoking Status: Never smoker Alcohol use: No CD- Drugs: No Caffeine use: No Place of Residence: Assisted Review of Systems 10-point ROS is otherwise unremarkable Integumentary: As per HPI Physical Examination - Vital Signs Temperature: 98.8 F Blood Pressure: 122/59 Pulse: 73 Respirations: 16 Pulse Ox (%): 98 - Physical Exam General: Alert, In no apparent distress HEENT: Atraumatic, Normocephalic Neck: Supple, JVD not distended Respiratory: Clear to auscultation bilaterally, Normal air movement Cardiovascular: No edema, Regular rate/rhythm Gastrointestinal: Normal bowel sounds, Soft and benign Musculoskeletal: No clubbing, No swelling Integumentary: Other (6cm x 4cm necrotic wound medial left wound with malodorous green discharge) Neurological: Other (aphasic, at baseline) - Studies Laboratory Data (last 24 hrs) 04/06/23 04/06/23 19:32 19:32 WBC 7.00 Hgb 9.9 L Hct 29.4 L Plt Count 289 Sodium 137 Potassium 3.6 BUN 11 Creatinine 1.13 Glucose 196 H Total Bilirubin 0.3 AST 13 L ALT 11 L Alkaline Phosphatase 52 Assessment and Plan - Problems (Diagnosis) (1) Osteomyelitis Current Visit: Yes Status: Acute Qualifiers: Osteomyelitis type: subacute Osteomyelitis location: foot Laterality: left Qualified Code(s): M86.272 - Subacute osteomyelitis, left ankle and foot (2) Type 2 diabetes mellitus Current Visit: Yes Status: Chronic Qualifiers: Diabetes mellitus technician terminal and repeater insulin use: with technician terminal and repeater use Diabetes mellitus complication status: with hyperglycemia Qualified Code(s): E11.65 - Type 2 diabetes mellitus with hyperglycemia; Z79.4 - [facility] (current) use of insulin (3) Hypertension Current Visit: Yes Status: Chronic Qualifiers: Hypertension type: primary hypertension Qualified Code(s): I10 - Essential (primary) hypertension (4) Hypothyroidism Current Visit: Yes Status: Chronic Qualifiers: Hypothyroidism type: unspecified Qualified Code(s): E03.9 - Hypothyroidism, unspecified (5) Anemia Current Visit: Yes Status: Chronic Qualifiers: Anemia type: unspecified type Qualified Code(s): D64.9 - Anemia, unspecified (6) Peripheral vascular disease Current Visit: Yes Status: Chronic - Plan Continue IV vancomycin and cefepime. Blood cultures obtained in ED. Obtain wound culture. High suspicion for pseudomonas given malodorous green discharge. General surgery, Dr. Barakat, contacted- agrees to consult, does not believe this is surgical. NPO at midnight, hold anticoagulation in case for surgery. SCDs. Resume home medications when appropriate. Check valproic acid level and PT-INR. Sliding scale insulin for glucose management. Discharge Plan: Assisted Plan to discharge in: 48 Hours - Advance Directives Does patient have a Living Will: No Does patient have a Durable POA for Healthcare: No - Code Status/Comfort Care Code Status Assessed: Yes Code Status: Full Code Physician Review: Patient Assessed, Agree with Above Assessment and Plan Critical Care: No Time Spent Managing Pts Care (In Minutes): 50
[2023-04-06] MEDS ORDERED: VANCOMYCIN 1 GM/VIAL ONE (20:59)
[2023-04-06] MEDS ORDERED: ONDANSETRON 4 MG/2 ML VIAL IV PRN (22:36)
[2023-04-06] MEDS ORDERED: VANCOMYCIN 1 GM in NA CHLORIDE 0.9% 250 ML IVPB SCH (22:36)
[2023-04-06] MEDS: CEFEPIME 1 GM in NA CHLORIDE 0.9% 100 ML IV SCH (22:36)
[2023-04-06] MEDS ORDERED: VANCOMYCIN 500 MG in NA CHLORIDE 0.9% 100 ML IVPB ONE (23:00)
[2023-04-07 01:03] VITALS: BMI 25.8
[2023-04-07 05:53] LABS: Absolute Lymphocytes (CBC) 1.6 K/uL (0.7-4.9); Hematocrit 27.4 % (39.6-49.0); Lymphocytes % 25.5 % (15.3-44.8); MCV 88.9 fL (80-100); MPV 7.6 fL (7.6-11.3); Platelets 254 thou/uL (152-406); RBC Red Blood Cell Count 3.09 M/uL (4.33-5.43)
[2023-04-07 05:54] LABS: Protime INR 1.28
[2023-04-07] MEDS: INSULIN REGULAR (HUMAN) 100 UNIT/ML SQ SCH ×4 (06:00→18:00)
[2023-04-07 06:19] LABS: Magnesium 2.2 mg/dL (1.6-2.4); Phosphorus 3.6 mg/dL (2.5-4.9); Potassium 3.4 mEq/L (3.5-5.1); Valproic Acid (Depakene) Level 20.5 mcg/mL (50.0-100.0)
[2023-04-07] MEDS: CEFEPIME 1 GM in NA CHLORIDE 0.9% 100 ML IV SCH ×2 (09:56→20:17)
[2023-04-07] MEDS ORDERED: propofoL 200 MG/20 ML VIAL IV ONE ×2 (14:30→14:52)
[2023-04-07] MEDS ORDERED: MIDAZOLAM HCL 2 MG/2 ML INJ ONE (14:31)
[2023-04-07] MEDS ORDERED: FENTANYL CITR 100 MCG/2 ML ONE (14:31)
[2023-04-07] MEDS ORDERED: LIDOCAINE 1% MPF 5 ML VIAL ONE (14:32)
[2023-04-07] MEDS ORDERED: ONDANSETRON 4 MG/2 ML VIAL ONE ×2 (14:33→14:53)
[2023-04-07] MEDS ORDERED: NA CHLORIDE 0.9% 1,000 ML ONE (14:40)
--- NOTE | 2023-04-07 14:40 | P.CNS ---
Date of Consult: 04/07/23 PC: I was asked to see this 62-year-old male in regards to wounds on his left foot. HPC: Patient apparently was treated recently with a amputation of his great toe left foot. He was discharged from the hospital. He comes back today with increasing drainage, foul-smelling wound with necrotic tissue. PSHx: Previous left foot surgery PMHx: Stroke Social Hx: No known allergies O/E: Awake alert responds nodding and shaking his head to yes/no questions. HEENT: Negative Chest: Chest movement equal bilaterally Abd: Negative Lincoln: Left foot shows full-thickness skin loss with necrosis on the left medial aspect of his foot. This is over the area where the head of the metatarsal would be. He also has an area on the lateral aspect. This most likely due to pressure. Data: X-ray shows possible ostia head of the first metatarsal Impression: Necrotic wound left foot Plan: I will taken the operating room for a surgical debridement of his left foot. Depending on what our surgical findings are we will determine course of treatment. I may perhaps use a wound VAC, or just do wet-to-dry dressings. I have tried to explain to this to the patient. He understands and is nodding in agreement.
[2023-04-07] MEDS: VANCOMYCIN 1.5 GM in NA CHLORIDE 0.9% 500 ML IVPB SCH (15:00)
[2023-04-07] MEDS ORDERED: LIDOCAINE 1% MPF 30 ML VIAL ONE (15:07)
[2023-04-07] MEDS ORDERED: EPHEDRINE SULF 50 MG/ML VIAL ONE (15:27)
--- NOTE | 2023-04-07 15:49 | P.OP ---
Preoperative diagnosis: Necrosis and osteomyelitis medial aspect of left foot, necrosis to the late Postoperative diagnosis: This is the same Primary procedure: Excision of great metatarsal left foot Secondary procedure: Surgical debridement of wound 4 inches x 3 inches down to the bone Other procedure(s): Application of wound VAC Anesthesia: General Estimated blood loss: Less than 10 cc Specimen: Necrotic material and osteomyelitic bone Operative Technique: The patient brought the operating room and placed supine on the table. After the induction of adequate general endotracheal anesthesia, the area of the left foot was prepped with a DuraPrep solution, and draped in the usual aseptic manner. Attention was turned towards the left foot. On the medial aspect where the patient had a prior surgery performed there was a large area of full- thickness skin loss and muscle loss down to the bone itself. The bone showed obvious involvement with necrosis and infection. The wound was first surgically debrided using electrocautery to excise all the tissue back to clean viable tissue. The metatarsal now is protruded through this area. The periosteum was opened over the metatarsal. The whole bone was now removed down to the joint. The joint capsule being opened with electrocautery and excising it completely circumferentially. The whole head of the Arvind metatarsal plus the necrotic area of osteo was sent for histopathology. The underlying ligament sesamoid bone complex and tendons were now debrided out to clean viable tissue. Having established a clean surgical base, attention was turned towards the dorsal left foot. This area was quickly debrided superficially using the surgical curette. On the lateral aspect of the left foot there is an area that appears to be blistering has not quite declared itself appears to be breakdown of the skin from most likely pressure as opposed to vascular effects. With this in mind the wound medially was now filled with the black foam used with the wound VAC. We were able to use a piece of this on his heel as well as on the lateral aspect. The second occlusive dressing was now placed on top. The wound VAC only communicates with the medial aspect the other 2 are more or less sponge buffers to protect his foot while in the care home from pressure effects. Hopefully this will help to both heal the lateral wound and avoid a surgical procedure as well is increase the viability of the arm medial aspect as well. At the end of the procedure the patient was in a stable condition was sent to the recovery room. Needle sponge instrument count were correct. No drains were placed. Complications: None Drain(s): Other (Wound VAC) Transferred to: Recovery Room Condition: Good
[2023-04-07 16:33] VITALS: O2SAT 94
[2023-04-07] MEDS ORDERED: VANCOMYCIN 1.5 GM in NA CHLORIDE 0.9% 500 ML IVPB SCH (17:00)
[2023-04-08] MEDS: INSULIN REGULAR (HUMAN) 100 UNIT/ML SQ SCH ×4 (06:00→18:00)
[2023-04-08 07:11] LABS: Hematocrit 28.9 % (39.6-49.0); Lymphocytes % 17.1 % (15.3-44.8); MCV 89.1 fL (80-100); MPV 7.9 fL (7.6-11.3); Platelets 257 thou/uL (152-406); RBC Red Blood Cell Count 3.25 M/uL (4.33-5.43)
--- NOTE | 2023-04-08 07:23 | RAD REPORT ---
EXAM DESCRIPTION: US - Lower Extremity Artery [employer] - 04/07/2023 11:45 pm CLINICAL HISTORY: PAD COMPARISON: CT 03/17/2023, ultrasound 03/14/2023 FINDINGS: Color Doppler, grayscale, and spectral analysis was performed. Monophasic flow present within the left common femoral artery, superficial femoral artery, popliteal artery, posterior tibial artery, and dorsalis pedis artery. Scattered areas of hard plaque present. IMPRESSION: Monophasic flow throughout the left lower extremity remains compatible with moderate to severe stenoses. Referencing the CTA from 03/17/2023, the patient has severe peripheral vascular dise ase with varying degrees of stenoses involving nearly all of the major arterial structures in the lef t lower extremity.
[2023-04-08] MEDS: VANCOMYCIN 1.5 GM in NA CHLORIDE 0.9% 500 ML IVPB SCH (09:00)
[2023-04-08] MEDS: CEFEPIME 1 GM in NA CHLORIDE 0.9% 100 ML IV SCH (10:11)
[2023-04-08] MEDS ORDERED: NACL 0.9% IRR SOLN 2,000 ML IRR ONE (13:35)
[2023-04-08] MEDS ORDERED: VANCOMYCIN 1.5 GM in NA CHLORIDE 0.9% 500 ML IVPB SCH (15:00)
[2023-04-09] MEDS: INSULIN REGULAR (HUMAN) 100 UNIT/ML SQ SCH ×3 (00:54→12:00)
[2023-04-09] MEDS: CEFEPIME 2 GM in NA CHLORIDE 0.9% 100 ML IV SCH ×2 (00:56→08:00)
[2023-04-09] MEDS ORDERED: NA CHLORIDE 0.9% 100 ML ONE (01:09)
[2023-04-09 09:11] LABS: Absolute Lymphocytes (CBC) 1.8 K/uL (0.7-4.9); Hematocrit 27.5 % (39.6-49.0); Lymphocytes % 23.5 % (15.3-44.8); MCV 89.2 fL (80-100); MPV 7.5 fL (7.6-11.3); Platelets 240 thou/uL (152-406); RBC Red Blood Cell Count 3.09 M/uL (4.33-5.43)
[2023-04-09 09:28] LABS: Potassium 3.5 mEq/L (3.5-5.1)
[2023-04-09 14:32] VITALS: BP 146/54; TEMP 98.1
[2023-04-09 14:37] LABS: SARS-CoV-2 Antigen Rapid Res Negative (Negative)
== END 2023-04-09 17:18 | DRG 988 ==
LOC: ER 18:59 → ERHOLD 20:34 → 2ND 21:17
PROVIDERS: ADMIT Hospitalist; ATTEND Hospitalist
PROC: 0QBP0ZZ Excision of Left Metatarsal, Open Approach (ICD-10-PCS; principal; 2023-04-07 14:00)
DX: E11.52 Type 2 diabetes mellitus with diabetic peripheral angiopathy with gangrene (principal); M86.172 Other acute osteomyelitis, left ankle and foot; E11.69 Type 2 diabetes mellitus with other specified complication; E11.65 Type 2 diabetes mellitus with hyperglycemia; E78.5 Hyperlipidemia, unspecified; D64.9 Anemia, unspecified; E03.9 Hypothyroidism, unspecified; I10 Essential (primary) hypertension; I69.320 Aphasia following cerebral infarction; Z79.4 Long term (current) use of insulin; Z95.1 Presence of aortocoronary bypass graft; Z11.52 Encounter for screening for COVID-19; Z89.611 Acquired absence of right leg above knee; Z89.412 Acquired absence of left great toe; Z79.890 Hormone replacement therapy; Z79.899 Other long term (current) drug therapy
CPT/HCPCS: 36415; 80048; 80053; 80164; 80202; 82947; 83605; 83735; 84100; 85025; 85610; 86140; 87040; 87070; 87077; 87186; 87205; 87811; 88304; 88305; 88311; 93926; 96365; 99285; J0692; J1815; J2001; J2250; J2405; J2704; J3010; J7030; J7040

== ENCOUNTER 2023-07-29 11:21 | Inpatient (IN) | payer OTHER ==
[2023-07-29 12:16] LABS: Absolute Lymphocytes (CBC) 0.6 K/uL (0.7-4.9); Absolute Monocytes 0.5 K/uL (0.1-1.3); Absolute Neutrophil 3.8 K/uL (1.8-8.0); Basophils % 0.4 % (0-1.3); Eosinophils % 0.2 % (0-4.4); Hematocrit 22.2 % (39.6-49.0); Hemoglobin 7.4 g/dL (13.6-17.9); Lymphocytes % 12.2 % (15.3-44.8); MCH 29.2 pg (27.0-35.0); MCHC 33.2 g/dL (32.0-36.0); MCV 87.9 fL (80-100); Monocytes % 10.1 % (3.3-12.3); Neutrophils % 77.1 % (41.7-73.7); Platelets 227 thou/uL (152-406); RBC Red Blood Cell Count 2.52 M/uL (4.33-5.43); Red Cell Distribution Width 14.3 % (12.1-15.2)
[2023-07-29] MEDS ORDERED: VANCOMYCIN 1 GM/VIAL ONE ×2 (12:21→18:37)
[2023-07-29] MEDS ORDERED: PIPERACIL/TAZO 3.375 GM VIAL IV ONE ×3 (12:22→17:56)
[2023-07-29] MEDS ORDERED: NA CHLORIDE 0.9% 0 ML ONE (12:22)
[2023-07-29] MEDS ORDERED: NA CHLORIDE 0.9% 100 ML ONE ×2 (12:23→17:57)
[2023-07-29] MEDS ORDERED: NA CHLORIDE 0.9% 250 ML ONE ×4 (12:26→18:37)
[2023-07-29 12:30] LABS: Albumin 1.6 g/dL (3.4-5.0); Albumin/Globulin Ratio 0.3 (1.1-1.8); Anion Gap 11.7 mEq/L (5.0-15.0); Bilirubin Total 0.4 mg/dL (0.2-1.0); Globulin 4.8 g/dL (2.3-3.5); Potassium 3.7 mEq/L (3.5-5.1); Protein, Total 6.4 g/dL (6.4-8.2)
[2023-07-29 12:32] LABS: PT Prothrombin Time 14.3 SECONDS (9.5-12.5); PTT, Activated Partial Thromb 29.5 SECONDS (24.3-36.9); Protime INR 1.31
[2023-07-29] MEDS ORDERED: NA CHLORIDE 0.9% 1,000 ML ONE ×2 (12:50→15:51)
--- NOTE | 2023-07-29 13:26 | RAD REPORT ---
EXAM DESCRIPTION: RADChest Single View07/29/2023 1:04 pm CLINICAL HISTORY: [facility] COMPARISON: Chest Single View dated 03/13/2023 TECHNIQUE: Portable AP view of the chest. FINDINGS: Decreased inspiratory effort limits evaluation. The lungs are clear apart from stable left basilar presumed atelectasis. No pneumothorax or effusion. The cardiomediastinal contours are unrem arkable. IMPRESSION: No acute cardiopulmonary process.
--- NOTE | 2023-07-29 13:33 | RAD REPORT ---
EXAM DESCRIPTION: RAD - Foot Left 3 View - 07/29/2023 1:04 pm CLINICAL HISTORY: osteo COMPARISON: Foot Left 3 View dated 04/06/2023; Foot Left 3 View dated 03/14/2023 TECHNIQUE: Left foot, 3 views. FINDINGS: Interval sequelae of first digit amputation near the base of the first metatarsal. Overlying soft tissue irregularity and radiodensities, could relate to debris within the wound. Soft tissue gas along the plantar aspect of the forefoot extending also along the base of the second digit . Soft tissue irregularity and defect along the lateral forefoot to midfoot as well. Periosteal reaction extending from the lateral cortex of the stump. Subtle cortical irregularity along the lateral cortex at the base of the fifth metatarsal. Cortical irregularity and lucency along the base of the second digit proximal phalanx laterally. Joint alignment is otherwise maintained. IMPRESSION: Cortical irregularity along the lateral cortex of the base of the fifth metatarsal. Jeremiah ical irregularity and lucency along the base of the second digit proximal phalanx laterally. Both fin dings would raise concern for ongoing osteomyelitis. MRI would provide improved assessment if clinica lly indicated.
--- NOTE | 2023-07-29 15:26 | EDPHYS ---
Physician Documentation [facility] Name: Ariel Andrews Age: 62 yrs Sex: Male : 1960 Arrival Date: 07/29/2023 Time: 11:21 Bed 2 Private MD: ED Physician Dennis Santiago HPI: 07/28 11:39 This 62 yrs old Male presents to ER via EMS with complaints of fever. ec2 11:39 History gathered from EMS and custodial due to patient's nonverbal status. Patient ec2 reportedly having increased altered mental status, normally is able to communicate with yes and no, today has been more drowsy than typical. Patient being treated for his left foot wound. Reportedly had a fever today as well. Unsure of antipyretics given prior to arrival.. Historical: - Allergies: 11:43 No Known Allergies; nj1 - PMHx: 11:43 Anemia; Anxiety; Aphasia; Cerebrovascular accident; depressive disorder; diabetes nj1 mellitus; DYSPHAGIA; Hypertensive disorder; Hypothyroidism; insomnia; peripheral vascular disease; Transient cerebral ischemia; - PSHx: 11:43 Coronary artery bypass graft; left toe amputation (AK); right AKA; nj1 - Immunization history:: Adult Immunizations unknown. - Social history:: Smoking status: unknown. ROS: 11:39 Constitutional: as per hpi ec2 Exam: 11:39 Constitutional: GEN: NAD Head: atraumatic Eyes: EOMI Ears: External ears are ec2 normal. CV: regular rate LUNGS: no respiratory distress ABD: non-distended, soft, nontender, no guarding, not rigid SKIN: Chronic left foot wound with black and blue discoloration over the distal foot. Vital Signs: 11:21 BP 132 / 51; Pulse 83; Resp 12; Temp 98.5(O); Pulse Ox 92% on R/A; Weight 72.57 kg (M); nj1 12:45 BP 139 / 57; Pulse 79; Resp 17; Pulse Ox 94% on R/A; nj1 13:24 BP 124 / 49; Pulse 79; Resp 10; Pulse Ox 96% ; nj1 14:38 BP 141 / 49; Pulse 78; ec2 14:45 BP 132 / 56; Pulse 75; Resp 13 S; Pulse Ox 95% ; nj1 15:45 BP 115 / 49; Pulse 69; Resp 11; Pulse Ox 95% on R/A; nj1 16:45 BP 130 / 41; Pulse 67; Resp 10; Pulse Ox 96% on R/A; nj1 18:00 BP 134 / 45; Pulse 64; Resp 12; Temp 97.4(O); Pulse Ox 97% on R/A; nj1 19:00 BP 166 / 93; Pulse 68; Resp 15; Pulse Ox 100% ; jj7 20:00 BP 167 / 91; Pulse 69; Resp 13; Temp 97.6; Pulse Ox 97% ; jj7 MDM: 11:28 Patient medically screened. ec2 11:39 Data reviewed: vital signs. ED course: Patient arrives today for evaluation of fever ec2 with altered mental status. Examination remarkable for nonverbal individual who is otherwise in no acute distress who has some findings as noted above. Will obtain septic workup, empirically treat with antibiotics. Evaluating for cellulitis, osteomyelitis, sepsis.. 12:22 ED course: EKG independently reviewed and interpreted by me, shows normal sinus rhythm, ec2 rate of 82, no acute ST segment elevations, nonconcerning intervals. . 12:35 ED course: CBC shows anemia with a hemoglobin of 7.4. CMP shows appropriate ec2 electrolytes. Lactic acid elevated at 5.5. Coagulation profile unremarkable. Will give 30 cc/kg fluid bolus. . 12:54 ED course: Sepsis reassessment completed.. ec2 13:35 ED course: Foot x-ray shows concern for osteomyelitis. I consulted surgery who evaluate ec2 the patient, will admit for sepsis secondary to osteomyelitis. . 15:30 ED course: Repeat lactic acid within normal ranges. Will admit for sepsis secondary to ec2 osteomyelitis.. 07/28 11:36 Order name: Blood Culture Adult (2) ec2 07/28 11:36 Order name: CBC with Diff; Complete Time: 12:34 ec2 07/28 11:36 Order name: CMP; Complete Time: 12:34 ec2 07/28 11:36 Order name: Lactate w/ 2H reflex if indic.; Complete Time: 12:40 ec2 07/28 11:36 Order name: Protime (+inr); Complete Time: 12:34 ec2 07/28 11:36 Order name: Ptt, Activated; Complete Time: 12:34 ec2 07/28 14:27 Order name: Lactate w/ 2H reflex if indic.; Complete Time: 15:25 ec2 07/28 16:02 Order name: Urinalysis w/ reflexes EDMS 07/28 16:02 Order name: Basic Metabolic Panel EDMS 07/28 16:02 Order name: Basic Metabolic Panel EDMS 07/28 16:02 Order name: Basic Metabolic Panel EDMS 07/28 16:02 Order name: Basic Metabolic Panel EDMS 07/28 16:02 Order name: Basic Metabolic Panel EDMS 07/28 16:02 Order name: Basic Metabolic Panel EDMS 07/28 16:02 Order name: CBC with Automated Diff EDMS 07/28 16:02 Order name: CBC with Automated Diff EDMS 07/28 16:02 Order name: CBC with Automated Diff EDMS 07/28 16:02 Order name: CBC with Automated Diff EDMS 07/28 16:02 Order name: CBC with Automated Diff EDMS 07/28 16:02 Order name: Magnesium EDMS 07/28 16:02 Order name: Magnesium EDMS 07/28 16:02 Order name: Magnesium EDMS 07/28 16:02 Order name: Magnesium EDMS 07/28 16:02 Order name: Magnesium EDMS 07/28 11:36 Order name: Chest Single View XRAY; Complete Time: 13:33 ec2 07/28 11:36 Order name: Foot Left 3 View XRAY; Complete Time: 13:33 ec2 07/28 16:05 Order name: Foot Left Wo Cont EDMS 07/28 11:36 Order name: EKG; Complete Time: 11:37 ec2 07/28 11:36 Order name: Accucheck; Complete Time: 12:15 ec2 07/28 11:36 Order name: Cardiac monitoring; Complete Time: 11:37 ec2 07/28 11:36 Order name: EKG - Nurse/Tech; Complete Time: 12:22 ec2 07/28 11:36 Order name: IV Saline Lock - Large Bore; Complete Time: 11:37 ec2 07/28 11:36 Order name: Labs collected and sent; Complete Time: 12:15 ec2 07/28 11:36 Order name: O2 Per Protocol; Complete Time: 12:16 ec2 07/28 11:36 Order name: O2 Sat Monitoring; Complete Time: 12:16 ec2 07/28 11:36 Order name: Vital Signs; Complete Time: 12:16 ec2 Administered Medications: 12:40 Drug: vancoMYCIN IVPB 1 grams IVPB once over 2 hrs Route: IVPB; Infused Over: 2 hrs; nj1 Site: left antecubital; 14:45 Follow up: Response: No adverse reaction; IV Status: Completed infusion; IV Intake: nj1 250ml 12:40 Drug: Piperacillin-Tazobactam IVPB 3.375 grams IVPB once over 60 mins; (mix in NS 100 nj1 mL) Route: IVPB; Infused Over: 60 mins; Site: left hand; 13:40 Follow up: Response: No adverse reaction; IV Status: Completed infusion; IV Intake: nj1 100ml 12:51 Drug: NS 0.9% IV (30 ml/kg) 30 ml/kg IV at bolus once; Sepsis Protocol Route: IV; Rate: nj1 bolus; Site: left antecubital; 14:45 Follow up: Response: No adverse reaction; IV Intake: 1177ml ; 1000 ml LR finished, nj1 started WET CLEANER MACHINE by EMS. Total IVF bolus infused 2177ml 15:56 Drug: NS 0.9% IV 1000 ml IV at 125 ml/hr continuous Route: IV; Rate: 125 ml/hr; Site: nj1 left antecubital; Disposition Summary: 07/29/23 15:26 Hospitalization Ordered Notes: Hospitalization Status: Inpatient Admission ec2 Condition: Stable ec2 Problem: new ec2 Symptoms: have improved ec2 Bed/Room Type: Standard ec2 Provider: Veronica Irving(07/29/23 15:26) ec2 [facility]39[facility] Room Assignment: [employer](07/29/23 18:39) dw Diagnosis - Osteomyelitis, unspecified ec2 - Sepsis, unspecified organism ec2 Forms: - Medication Reconciliation Form ec2 - SBAR form ec2 - Leadership Thank You Letter ec2 Critical care time excluding procedures: 15:08 Critical care time: Bedside Care: 30 minutes, Consultation: 10 minutes. Total time: 40 ec2 minutes Signatures: Dispatcher [employer] Valery Hearn RN RN dw Bradberry, Kelly, RN RN kb3 Marie Casillas RN RN nj1 Dennis Santiago MD MD ec2 Corrections: (The following items were deleted from the chart) 15:26 15:26 Wilson Stratton ec2 ec2 17:31 15:26 Telemetry/MedSurg (Inpatient) ec2 kb3 17:31 15:26 ec2 kb3 18:39 17:31 [facility] ER HOLD kb3 dw 18:39 17:31 ERHOLD- kb3 dw
--- NOTE | 2023-07-29 15:26 | ER ---
Nurse's Notes [facility] Name: Ariel Andrwes Age: 62 yrs Sex: Male : 1960 Arrival Date: 07/29/2023 Time: 11:21 Bed 2 Private MD: Diagnosis: Osteomyelitis, unspecified;Sepsis, unspecified organism Presentation: 07/28 11:21 Chief complaint: EMS states: Lethargic and fever. Normal mentation, yes/no answers. nj1 Wound care at [place] on left foot, they complained of smell. 11:21 Coronavirus screen: Vaccine status: Unable to obtain from patient and/or care home nj1 documentation. Ebola Screen: Patient denies travel to an Ebola-affected area in the 21 days before illness onset. Initial Sepsis Screen: Does the patient meet any 2 criteria? No. Patient's initial sepsis screen is negative. Does the patient have a suspected source of infection? Yes: Skin breakdown/wound. Risk Assessment: Do you want to hurt yourself or someone else? Unable to obtain. Onset of symptoms is unknown. 11:21 Method Of Arrival: EMS: [facility] [place] 11:21 Acuity: CROW 3 nj 11:43 Care prior to arrival: Medication(s) given: LR, ok by Dr Santiago to continue infusion. nj1 IV initiated. 22 GA, in the left hand, Glucose check: 314. Historical: - Allergies: 11:43 No Known Allergies; nj1 - PMHx: 11:43 Anemia; Anxiety; Aphasia; Cerebrovascular accident; depressive disorder; diabetes nj1 mellitus; DYSPHAGIA; Hypertensive disorder; Hypothyroidism; insomnia; peripheral vascular disease; Transient cerebral ischemia; - PSHx: 11:43 Coronary artery bypass graft; left toe amputation (AK); right AKA; nj1 - Immunization history:: Adult Immunizations unknown. - Social history:: Smoking status: unknown. Screenin:30 [facility] ED Fall Risk Assessment (Adult) History of falling in the last 3 months, nj including since admission No falls in past 3 months (0 pts) Confusion or Disorientation Yes (5 pts) Intoxicated or Sedated No (0 pts) Impaired Gait Yes (1 pt) Mobility Assist Device Used Yes (1 pt) Altered Elimination Yes (1 pt) Score/Fall Risk Level 3 or more points = High Risk Oriented to surroundings, Maintained a safe environment, Hourly rounding (assess needs \T\ fall precautionary measures) done, Utilized family, sitter, or virtual respiratory therapy assistant as indicated. Abuse screen: Denies threats or abuse. Denies injuries from another. Nutritional screening: No deficits noted. Tuberculosis screening: No symptoms or risk factors identified. Assessment: 11:30 General: Appears in no apparent distress. comfortable, Behavior is calm, cooperative. nj1 11:30 Pain: Denies pain. Neuro: Level of Consciousness is awake, obeys commands, Drowsy. nj1 Oriented to Unable to assess, pt does not answer questions, able to follow commands, shakes head yes/no at times.. Cardiovascular: Patient's skin is warm and dry. Rhythm is regular. Respiratory: Airway is patent Respiratory effort is even, unlabored. Derm: Wound noted left foot Other: Dressed at care home, dated today. 12:45 Reassessment: Patient appears in no apparent distress at this time. No changes from [facility] [place] previously documented assessment. 13:27 Reassessment: Patient appears in no apparent distress at this time. resting/sleeping. nj1 14:49 Reassessment: Patient appears in no apparent distress at this time. No changes from [facility] [place] previously documented assessment. 16:00 Reassessment: Patient appears in no apparent distress at this time. No changes from [facility] [place] previously documented assessment. 17:00 Reassessment: Patient appears in no apparent distress at this time. No changes from [facility] [place] previously documented assessment. 19:00 Reassessment: Unsuccessful attempt to call report at this time. Floor unsure of who is [facility] [place] taking patient. They will call back for report. 19:11 Reassessment: To MRI via stretcher. nj1 Vital Signs: 11:21 BP 132 / 51; Pulse 83; Resp 12; Temp 98.5(O); Pulse Ox 92% on R/A; Weight 72.57 kg (M); nj1 12:45 BP 139 / 57; Pulse 79; Resp 17; Pulse Ox 94% on R/A; nj1 13:24 BP 124 / 49; Pulse 79; Resp 10; Pulse Ox 96% ; nj1 14:38 BP 141 / 49; Pulse 78; ec2 14:45 BP 132 / 56; Pulse 75; Resp 13 S; Pulse Ox 95% ; nj1 15:45 BP 115 / 49; Pulse 69; Resp 11; Pulse Ox 95% on R/A; nj1 16:45 BP 130 / 41; Pulse 67; Resp 10; Pulse Ox 96% on R/A; nj1 18:00 BP 134 / 45; Pulse 64; Resp 12; Temp 97.4(O); Pulse Ox 97% on R/A; nj1 19:00 BP 166 / 93; Pulse 68; Resp 15; Pulse Ox 100% ; jj7 20:00 BP 167 / 91; Pulse 69; Resp 13; Temp 97.6; Pulse Ox 97% ; jj7 ED Course: 11:22 Patient arrived in ED. nj1 11:23 Dennis Santiago MD is Attending Physician. ec2 11:30 Patient has correct armband on for positive identification. Bed in low position. Call [facility] [place] light in reach. 11:36 Marie Casillas, FELICITA is Primary Nurse. nj1 11:43 Triage completed. nj1 11:43 Arm band placed on. nj1 11:55 Inserted saline lock: 20 gauge in left antecubital area, using aseptic technique. nj1 ,using aseptic technique. Ultrasound guided. Catheter tip well visualized within vasculature during placement. Blood collected. 13:05 Chest Single View XRAY In Process Unspecified. EDMS 13:05 Foot Left 3 View XRAY In Process Unspecified. EDMS 15:25 Wilson Stratton is Hospitalizing Provider. ec2 15:26 Hospitalizing Provider role handed off by Wilson Stratton ec2 15:26 Veronica Irving MD is Hospitalizing Provider. ec2 19:00 Report given to Brittny MIMS and MICHAEL RN. nj1 20:23 Patient admitted, IV remains in place. jj7 20:23 No provider procedures requiring assistance completed. jj7 Administered Medications: 12:40 Drug: vancoMYCIN IVPB 1 grams IVPB once over 2 hrs Route: IVPB; Infused Over: 2 hrs; nj1 Site: left antecubital; 14:45 Follow up: Response: No adverse reaction; IV Status: Completed infusion; IV Intake: nj1 250ml 12:40 Drug: Piperacillin-Tazobactam IVPB 3.375 grams IVPB once over 60 mins; (mix in NS 100 nj1 mL) Route: IVPB; Infused Over: 60 mins; Site: left hand; 13:40 Follow up: Response: No adverse reaction; IV Status: Completed infusion; IV Intake: nj1 100ml 12:51 Drug: NS 0.9% IV (30 ml/kg) 30 ml/kg IV at bolus once; Sepsis Protocol Route: IV; Rate: nj1 bolus; Site: left antecubital; 14:45 Follow up: Response: No adverse reaction; IV Intake: 1177ml ; 1000 ml LR finished, nj1 started ORTHOPEDIC ASSISTANT by EMS. Total IVF bolus infused 2177ml 15:56 Drug: NS 0.9% IV 1000 ml IV at 125 ml/hr continuous Route: IV; Rate: 125 ml/hr; Site: nj1 left antecubital; Medication: 20:26 VIS not applicable for this client. jj7 Intake: 13:40 IV: 100ml; Total: 100ml. nj1 14:45 IV: 1177ml; Total: 1277ml. nj1 14:45 IV: 250ml; Total: 1527ml. nj1 Outcome: 15:26 Decision to Hospitalize by Provider. ec2 20:32 Condition: good juan miguel 20:33 Admitted to Med/surg accompanied by tech, room 418, Report called to KENYA MIMS jj7 20:44 Patient left the ED. [email or web address] Signatures: Dispatcher [employer] Kenney Contreras RN RN jj7 Marie Casillas RN RN nj1 Dennis Santiago MD MD ec2
--- NOTE | 2023-07-29 15:55 | P.HP ---
Certification for Inpatient Patient admitted to: Inpatient <Alysia Durán - Last Filed: 07/29/23 18:36> Patient History Date of Service: 07/29/23 Reason for admission: Osteomyelitis History of Present Illness: s 62 yrs old Male with past medical history of Anemia; Anxiety; Aphasia; Cerebrovascular accident; depressive disorder; diabetes mellitus; DYSPHAGIA; Hypertensive disorder; Hypothyroidism; insomnia; peripheral vascular disease; Transient cerebral ischemia;presents to ER via EMS with complaints of fever. Patient is nonverbal after CVA, prior ampuation, right AKA presented to the emergency room with increasing confusion, lethargy. HPI per medical records secondary to patient nonverbal. Reported being treated for left foot wound. Reports associated fever today. Vital signs 21 BP 132 / 51; Pulse 83; Resp 12; Temp 98.5(O); Pulse Ox 92% on R/A; ED course: Foot x-ray shows concern for osteomyelitis. MRI of the left foot ordered, surgery consulted to eval for osteomyelitis plan to keep patient n.p.o. after midnight, patient treated with IV vancomycin, Zosyn. Patient treated for sepsis with sepsis bolus with 2100 cc infused in the emergency room. Plan to admit for osteomyelitis of the left lower extremity, sepsis without shock. - Past Medical/Surgical History Diabetic: Yes -: CVA R) weakness, aphasia -: Diabetes -: HTN -: HLD -: Anxiety, Depression -: PVD -: hypothyroidism -: Diabetes -: Right AKA -: Left great toe amputation Psychosocial/ Personal History: [facility] HOME - Social History Alcohol use: No CD- Drugs: No Caffeine use: No <Alysia Durán - Last Filed: 07/29/23 18:36> Date of Service: 07/30/23 <Veronica Irving - Last Filed: 07/30/23 17:11> Allergies No Known Allergies Allergy (Unverified 03/13/23 21:34) Home Medications: Acetaminophen [Tylenol] 650 mg PO Q6HP PRN 03/13/23 Ascorbic Acid [C-500] 500 mg PO DAILY 03/13/23 Aspirin 81 mg PO DAILY 03/13/23 Atorvastatin Calcium [Lipitor*] 20 mg PO BEDTIME 03/13/23 Cyanocobalamin [Vitamin B-12*] 1,000 mcg PO DAILY 03/13/23 Divalproex [Depakote Sprinkle*] 4 cap PO BEDTIME 03/13/23 Furosemide [Lasix] 20 mg PO DAILY 03/13/23 Insulin Glargine,Hum.rec.anlog [Lantus Solostar] 30 unit SQ BEDTIME 03/13/23 Metoprolol Tartrate [Lopressor*] 12.5 mg PO BID 03/13/23 Mirtazapine [Remeron*] 15 mg PO BEDTIME 03/13/23 Nitroglycerin [Nitrostat*] 0.4 mg SL SEECOM PRN 03/13/23 Tamsulosin [Flomax*] 0.4 mg PO BEDTIME 03/13/23 Zinc Gluconate [Zinc] 50 mg PO DAILY 03/13/23 Tramadol HCl [Ultram] 50 mg PO Q6HP PRN 04/06/23 Collagenase [Santyl Ointment] 1 appl TOP DAILY 07/30/23 Insulin Aspart [Novolog Flexpen] See Protocol SQ SEECOM 07/30/23 Mupirocin Oint [Bactroban 2% Ointment*] 1 appl TOP DAILY 07/30/23 Review of Systems Per HPI <Alysia Durán - Last Filed: 07/29/23 18:36> Physical Examination - Physical Exam General: Alert, In no apparent distress, Oriented x3, Other (Nonverbal) HEENT: Atraumatic, Normocephalic Respiratory: Clear to auscultation bilaterally, Normal air movement Cardiovascular: No edema, Normal pulses Capillary refill: <2 Seconds Gastrointestinal: Normal bowel sounds, Soft and benign Musculoskeletal: No swelling, No contractures, Other (Left foot infection, right AKA) Integumentary: Other (Left foot discoloration/wound with black and blue ) Neurological: Abnormal gait, Abnormal speech - Studies Laboratory Data (last 24 hrs) 07/29/23 07/29/23 07/29/23 11:55 11:55 11:55 WBC 4.90 Hgb 7.4 L Hct 22.2 L Plt Count 227 PT 14.3 H INR 1.31 APTT 29.5 Sodium 137 Potassium 3.7 BUN 19 H Creatinine 1.24 Glucose 219 H Total Bilirubin 0.4 AST 16 ALT 12 L Alkaline Phosphatase 57 <Alysia Durán - Last Filed: 07/29/23 18:36> Assessment and Plan - Plan Assessment plan left lower extremity osteomyelitis Sepsis without shock acute on chronic Left foot wound Lactic acidosis Chronic left foot wound with black and blue discoloration over the distal foot. peripheral vascular disease Surgery consulted, MRI of the left lower extremity, 07/28 n.p.o. after midnight IV vancomycin, IV Zosyn, Blood cultures ordered, Wound care ordered Trend lactic, IV fluids CVA aphasia Dysphagia Nonverbal Supportive care, fall precaution Anemia Anxiety depressive disorder diabetes unknown control Medicines, insulin, Accu-Cheks Hypertensive disorder EKG independently reviewed and interpreted by me, shows normal sinus rhythm, rate of 82, no acute ST segment elevations, nonconcerning intervals. . Hypothyroidism insomnia Resume appropriate home meds Full code Diet n.p.o. after midnight DVT SCDs Disposition, patient resides in the long term Discharge Plan: Long-Term - Advance Directives Does patient have a Living Will: No Does patient have a Durable POA for Healthcare: No - Code Status/Comfort Care Code Status: Full Code Critical Care: No Time Spent Managing Pts Care (In Minutes): 55 <Alysia Durán - Last Filed: 07/29/23 18:36> Date of Service: 07/29/23 Patient seen and examined. Patient to go to the OR per general surgery. Continue with IV antibiotics and arrange for outpatient IV antibiotics at discharge. <Veronica Irving - Last Filed: 07/30/23 17:11>
[2023-07-29] MEDS ORDERED: ZOLPIDEM TARTRATE 5 MG TABLET PO PRN (15:57)
[2023-07-29] MEDS ORDERED: ACETAMINOPHEN 500 MG TAB PO PRN (15:57)
[2023-07-29] MEDS ORDERED: ONDANSETRON 4 MG/2 ML VIAL IV PRN (15:57)
[2023-07-29] MEDS: PIPER TAZO 3.375 GM in NA CHLORIDE 0.9% 100 ML IV SCH (18:06)
[2023-07-29 18:44] VITALS: BMI 25.8
[2023-07-29] MEDS: VANCOMYCIN 1 GM in NA CHLORIDE 0.9% 250 ML IVPB ONE (18:45)
[2023-07-29] MEDS: Mupirocin NASAL 2 APPL/1 GM TUBE NAS SCH (21:44)
--- NOTE | 2023-07-29 22:26 | RAD REPORT ---
EXAM DESCRIPTION: MRI - Foot Left Wo Cont - 07/29/2023 7:47 pm CLINICAL HISTORY: Evaluate for osteomyelitis left foot COMPARISON: Foot Left 3 View dated 07/29/2023 TECHNIQUE: Multiplanar multisequence MRI of the left foot, obtained without IV contrast. FINDINGS: Signal abnormalities most notably with hypointense T1 signal, and in many instances corres ponding hyperintense T2 signal are present at the head of the second metatarsal, and adjacent base of the second digit proximal phalanx, residual base of the first metatarsal post amputation, and the he ad as well as base of the fifth metatarsal laterally. Questionable patchy similar signal abnormalitie s in the medial cuneiform as well. Soft tissue defects along the lateral forefoot to midfoot, and along the medial midfoot margin. Soft tissue swelling with susceptibility signal abnormality foci along the second digit compatible with pr esence of gas on the recent radiographs. No appreciable fluid collections within limits of noncontras t evaluation. The major ligamentous and tendinous structures of the foot and the deep muscles of the foot are unremarkable. Moderate skin thickening/edema throughout the foot elsewhere. IMPRESSION: Signal abnormalities concerning for osteomyelitis around the second metatarsophalangeal joint, base of the first metatarsal post amputation, and the fifth metatarsal at the head and base as described above. Questionable similar signal abnormalities in the medial cuneiform.
[2023-07-30 08:17] LABS: Absolute Eosinophils 0.1 K/uL (0-0.5); Absolute Lymphocytes (CBC) 0.8 K/uL (0.7-4.9); Absolute Monocytes 0.7 K/uL (0.1-1.3); Absolute Neutrophil 3.9 K/uL (1.8-8.0); Basophils % 0.3 % (0-1.3); Eosinophils % 1.4 % (0-4.4); Hematocrit 24.5 % (39.6-49.0); Hemoglobin 8.2 g/dL (13.6-17.9); Lymphocytes % 14.7 % (15.3-44.8); MCH 29.1 pg (27.0-35.0); MCHC 33.5 g/dL (32.0-36.0); MCV 87.1 fL (80-100); MPV 7.8 fL (7.6-11.3); Monocytes % 13.4 % (3.3-12.3); Neutrophils % 70.2 % (41.7-73.7); Nucleated Red Blood Cells % 0.1 % (0-0); Platelets 270 thou/uL (152-406); RBC Red Blood Cell Count 2.81 M/uL (4.33-5.43); Red Cell Distribution Width 14.6 % (12.1-15.2)
[2023-07-30 08:29] LABS: Anion Gap 8.2 mEq/L (5.0-15.0); Magnesium 1.8 mg/dL (1.6-2.4); Potassium 3.2 mEq/L (3.5-5.1)
--- NOTE | 2023-07-30 08:37 | P.PN ---
Subjective Date of Service: 07/30/23 Chief Complaint: Osteomyelitis N.p.o. for surgery eval today MRI ordered for left lower extremity - Physical Exam General: Alert, In no apparent distress, Oriented x3, Other (Nonverbal) HEENT: Atraumatic, Normocephalic Respiratory: Clear to auscultation bilaterally, Normal air movement Cardiovascular: No edema, Normal pulses Capillary refill: <2 Seconds Gastrointestinal: Normal bowel sounds, Soft and benign Musculoskeletal: No swelling, No contractures, Other (Left foot infection, right AKA) Integumentary: Other (Left foot discoloration/wound with black and blue ) Neurological: Abnormal gait, Abnormal speech <Alysia Durán - Last Filed: 07/30/23 08:37> Date of Service: 07/30/23 <Veronica Irving - Last Filed: 07/30/23 17:14> Review of Systems Per HPI <Alysia Durán - Last Filed: 07/30/23 08:37> Physical Examination - Vital Signs Temperature: 98.9 F Blood Pressure: 135/55 Pulse: 77 Respirations: 20 Pulse Ox (%): 94 - Studies Laboratory Data (last 24 hrs) 07/29/23 07/29/23 07/29/23 11:55 11:55 11:55 WBC 4.90 Hgb 7.4 L Hct 22.2 L Plt Count 227 PT 14.3 H INR 1.31 APTT 29.5 Sodium 137 Potassium 3.7 BUN 19 H Creatinine 1.24 Glucose 219 H Total Bilirubin 0.4 AST 16 ALT 12 L Alkaline Phosphatase 57 <Luis ArmandoAlysia - Last Filed: 07/30/23 08:37> Assessment And Plan - Plan Assessment plan left lower extremity osteomyelitis Sepsis without shock acute on chronic Left foot wound Lactic acidosis Chronic left foot wound with black and blue discoloration over the distal foot. Initial lactic 5.5, repeat 1 point Infectious disease consult peripheral vascular disease Surgery consulted, MRI of the left lower extremity, 07/28 n.p.o. after midnight IV vancomycin, IV Zosyn, Blood cultures ordered, Wound care ordered Trend lactic, IV fluids CVA aphasia Dysphagia Nonverbal Supportive care, fall precaution Anemia Anxiety depressive disorder diabetes unknown control Medicines, insulin, Accu-Cheks Hypertensive disorder EKG independently reviewed and interpreted by me, shows normal sinus rhythm, rate of 82, no acute ST segment elevations, nonconcerning intervals. . Hypothyroidism insomnia Resume appropriate home meds Full code Diet n.p.o. after midnight DVT SCDs Disposition, patient resides in the half-way Discharge Plan: Residential - Code Status/Comfort Care Code Status: Full Code Critical Care: No Time Spent Managing PTS Care (In Minutes): 35 <Alysia Durán - Last Filed: 07/30/23 08:37> Date of Service: 07/30/23 Patient seen and examined. Patient scheduled for surgery later today. We will keep patient NPO. We will continue with IV antibiotic therapy. Patient will need close monitoring. <Veronica Irving - Last Filed: 07/30/23 17:14>
--- NOTE | 2023-07-30 09:04 | P.CNS ---
Date of Consult: 07/30/23 Reason for Consult: left foot osteomylelitis Chief Complaint: Osteomyelitis History of Present Illness: HPI obtained from chart as patient unable to give history. "62 yrs old Male with past medical history of Anemia; Anxiety; Aphasia; Cerebrovascular accident; depressive disorder; diabetes mellitus; dysphagia Hypertensive disorder; Hypothyroidism; insomnia; peripheral vascular disease; Transient cerebral ischemia;presents to ER via EMS with complaints of fever. Patient is nonverbal after CVA, prior ampuation, right AKA presented to the emergency room with increasing confusion, lethargy. HPI per medical records secondary to patient nonverbal. Reported being treated for left foot wound. Reports associated fever today. Vital signs 21 BP 132 / 51; Pulse 83; Resp 12; Temp 98.5(O); Pulse Ox 92% on R/A; ED course: Foot x-ray shows concern for osteomyelitis. MRI of the left foot ordered, surgery consulted to eval for osteomyelitis plan to keep patient n.p.o. after midnight, patient treated with IV vancomycin, Zosyn. Patient treated for sepsis with sepsis bolus with 2100 cc infused in the emergency room. Plan to admit for osteomyelitis of the left lower extremity, sepsis without shock." Allergies No Known Allergies Allergy (Unverified 03/13/23 21:34) Home medications list reviewed: Yes Home Medications: Acetaminophen [Tylenol] 650 mg PO Q6HP PRN 03/13/23 Ascorbic Acid [C-500] 500 mg PO DAILY 03/13/23 Aspirin 81 mg PO DAILY 03/13/23 Atorvastatin Calcium [Lipitor*] 20 mg PO BEDTIME 03/13/23 Cyanocobalamin [Vitamin B-12*] 1,000 mcg PO DAILY 03/13/23 Divalproex [Depakote Sprinkle*] 4 cap PO BEDTIME 03/13/23 Furosemide [Lasix] 20 mg PO DAILY 03/13/23 Insulin Glargine,Hum.rec.anlog [Lantus Solostar] 30 unit SQ BEDTIME 03/13/23 Metoprolol Tartrate [Lopressor*] 12.5 mg PO BID 03/13/23 Mirtazapine [Remeron*] 15 mg PO BEDTIME 03/13/23 Nitroglycerin [Nitrostat*] 0.4 mg SL SEECOM PRN 03/13/23 Tamsulosin [Flomax*] 0.4 mg PO BEDTIME 03/13/23 Zinc Gluconate [Zinc] 50 mg PO DAILY 03/13/23 Tramadol HCl [Ultram] 50 mg PO Q6HP PRN 04/06/23 Collagenase [Santyl Ointment] 1 appl TOP DAILY 07/30/23 Insulin Aspart [Novolog Flexpen] See Protocol SQ SEECOM 07/30/23 Mupirocin Oint [Bactroban 2% Ointment*] 1 appl TOP DAILY 07/30/23 - Past Medical/Surgical History Diabetic: Yes -: CVA R) weakness, aphasia -: Diabetes -: HTN -: HLD -: Anxiety, Depression -: PVD -: hypothyroidism -: Diabetes -: Right AKA -: Left great toe amputation Psychosocial/ Personal History: [facility] HOME - Social History Smoking Status: Unknown if ever smoked Alcohol use: No CD- Drugs: No Caffeine use: No Review of Systems Musculoskeletal: Foot Pain (left) Physical Examination Temp Pulse Resp BP Pulse Ox 98.9 F 77 20 135/55 L 94 07/30/23 08:37 07/30/23 08:37 07/30/23 08:37 07/30/23 08:37 07/30/23 08:37 General: In no apparent distress, Oriented x1, Other (nonverbal) HEENT: Atraumatic, Normocephalic Respiratory: Clear to auscultation bilaterally, Normal air movement, Other (unlabored respirations on room air) Cardiovascular: No edema, Regular rate/rhythm, Abnormal pulses (nonpalpable pedal pulse left foot) Gastrointestinal: Normal bowel sounds, Soft and benign Musculoskeletal: Other (prior left first toe amputation. Right AKA) Integumentary: Other (left 2nd toe with dark purple discoloration/ischemic changes; foul odor present. prior 1st toe amputation. dorsal foot wound. ) Neurological: Other (aphasia) Laboratory Data - Reviewed Microbiology Data - Reviewed Imagings Data: - Reviewed Conclusions/Impression: Problem List Left Foot Osteomyelitis Peripheral Vascular Disease Hx CVA, aphasia Anemia Diabetes Mellitus Hypothyroidism Hypertension Left Foot Osteomyelitis complicated by Peripheral Vascular Disease - MRI Left foot 07/28: "Signal abnormalities concerning for osteomyelitis around the second metatarsophalangeal joint, base of the first metatarsal post amputation, and the fifth metatarsal at the head and base as described above. Questionable similar signal abnormalities in the medial cuneiform" - Arterial doppler from 04/07/23 reporting severe peripheral vascular disease with varying degrees of stenoses involving nearly all of the major arterial structures in the left lower extremity. - Currently on Zosyn and Vancomycin - Blood cultures 07/28: pending - general surgery consulted for amputation - Afebrile. - no leukocytosis. slightly elevated lymphocytes. Recommendations - Continue Zosyn and Vancomycin for now. - General surgery consulted, pending possible amputation - send tissue for culture - Follow up with final blood culture results - CBC, BMP and vanco trough - Continue supportive care - Pressure offloading measures Case discussed with Chapincito Johnson.
[2023-07-30] MEDS: VANCOMYCIN 1.25 GM in NA CHLORIDE 0.9% 250 ML IVPB SCH (12:21)
--- NOTE | 2023-07-30 12:36 | RAD REPORT ---
EXAM DESCRIPTION: RAD - Chest Single View - 07/30/2023 12:30 pm CLINICAL HISTORY: confirm PICC line placement COMPARISON: Chest Single View dated 07/29/2023; Chest Single View dated 03/13/2023 FINDINGS: Portable chest was obtained following placement of a left upper extremity PICC line. The c atheter tip projects over the right atrium. Recommend 3 cm of retraction.
--- NOTE | 2023-07-30 14:12 | RAD REPORT ---
EXAM DESCRIPTION: RAD - Chest Single View - 07/30/2023 1:49 pm CLINICAL HISTORY: confirm PICC line placement, post retraction COMPARISON: Chest Single View dated 07/30/2023; Chest Single View dated 07/29/2023; Chest Single View da sasha 03/13/2023 FINDINGS: Lines: Left subclavian approach PICC has been retracted and now terminates at the distal S VC in satisfactory position. Lungs: Diffuse prominence of the pulmonary interstitium. Pleural: No significant pleural effusions or pneumothorax. Cardiac: Cardiomegaly. Mediastinum: Within normal limits. Bones: No acute fractures. Other: None IMPRESSION: The PICC has been retracted and is in satisfactory position at the distal SVC . Probable mild interstitial edema.
[2023-07-30] MEDS ORDERED: LIDOCAINE 1% MPF 5 ML VIAL ONE (15:21)
[2023-07-30] MEDS ORDERED: propofoL 200 MG/20 ML VIAL IV ONE (15:21)
[2023-07-30] MEDS ORDERED: FENTANYL CITR 100 MCG/2 ML ONE (15:22)
[2023-07-30] MEDS: Ringers Lactate 1,000 ML IV ONE (15:23)
[2023-07-30] MEDS ORDERED: EPHEDRINE SULF 50 MG/ML VIAL ONE (16:04)
--- NOTE | 2023-07-30 16:48 | P.OP ---
Preoperative diagnosis: LEFT Foot Osteomyelitis with Abscess and Necrosis Postoperative diagnosis: LEFT Foot Osteomyelitis with Abscess and Necrosis Primary procedure: Amputation of LEFT 2nd, 3rd Toe Secondary procedure: Debridement of LEFT Foot Necrotic Tissue Anesthesia: GETA Estimated blood loss: 10cc Specimen: Toes, Debridement Tissues Findings: Osteomyelitis, Abscess, Necrotic Tissue Complications: None Transferred to: Recovery Room Condition: Good
[2023-07-30] MEDS ORDERED: MORPHINE 2 MG/ML SYR IV PRN (17:01)
--- NOTE | 2023-07-30 18:29 | RAD REPORT ---
EXAM DESCRIPTION: US - Lower Extremity Arterial Bilat - 07/30/2023 6:12 pm CLINICAL HISTORY: PAD COMPARISON: None FINDINGS: Status post right xatul-tqo-isqu amputation. Severely diminished monophasic flow in the ri ght SFA. Occluded femoral-femoral bypass graft. The left common femoral artery has monophasic flow as does the popliteal artery, and posterior tibial artery. Unable to assess the dorsalis pedis artery due to the patient's dressings. IMPRESSION: Occluded femoral-femoral artery bypass graft. Monophasic flow throughout the left lower extremity likely reflecting a moderate to severe proximal stenosis in the SFA as was identified on th e CTA from 03/17/2023.
[2023-07-30] MEDS: POTASSIUM CL SA 10 MEQ TAB PO ONE (20:55)
--- NOTE | 2023-07-30 20:56 | OP ---
Date of Procedure: 07/30/2023 Surgeon: Papito Crane MD, Preoperative Diagnosis: Left foot osteomyelitis with abscess. Postoperative Diagnosis: Left foot osteomyelitis with abscess. Procedure Performed: 1.Amputation of left second and third toes of the left foot. 2.Secondary procedure: Debridement of left foot necrotic tissue. Anesthesia: General endotracheal. Estimated Blood Loss: 10 cc. Specimen: Toes and debridement tissue. Findings: Osteomyelitis of the metatarsal head of the first digit, necrosis with abscess to the leve l of the second and third toes extending to the metatarsophalangeal joint, necrotic tissue along the first metatarsal head extending on the plantar fascia and rotating laterally to an open wound previou sly noted. Additionally, there was necrotic tissue on the lateral aspect of the foot which was super ficial. Complications: None. Disposition: The patient transferred to recovery room in good condition. Procedure In Detail: After informed consent was obtained, the patient brought to the operating room, prepped and draped in the usual sterile fashion. After adequate anesthesia was achieved, we made a curvilinear incision around the second and third toes at the metatarsophalangeal joint using a 15 gabby de down to subcutaneous tissues. Then dissected down circumferentially around the metatarsophalangea l joints and dissected these free until I used electrocautery to separate the metatarsophalangeal roz nt, sent the second and third toes off for pathologic examination. I then noted significant necrotic tissue with abscess on the plantar aspect of the foot. I ultimately debrided this area down extendi ng along the first metatarsal head and noted that it had necrotic change consistent with osteomyeliti s, and as such, I dissected circumferentially the tissues back, pushed back the tissue with periostea l elevator, and then used a bone cutter to cut the first metatarsal head and sent it off for patholog ic examination. This area was then copiously irrigated. I rasped loosely edges of the bone to make sure they were smooth and beveled. At this point, hemostasis achieved with electrocautery. I then i rrigated the area copiously on the floor of the necrotic tissue and ultimately the necrotic tissue wa s sent off for pathologic examination. The area was copiously irrigated until all necrotic tissue wa s removed. No abscess material was appreciated at this point. I then irrigated the area copiously. Hemostasis was achieved electrocautery. I then debrided the remaining soft tissue slough areas with a curette until all necrotic tissue was removed. Before I packed the wound, I partially closed the flap over the second, third metatarsals and the first metatarsal head using interrupted 2-0 nylon sut ures with a combination of vertical mattress and interrupted sutures with good approximation of tissu es. I left a partial opening on the medial side to allow for packing of half inch iodoform-soaked pa cking and a sterile dressing placed over top. The patient tolerated the procedure without incident o r complication, transferred to PACU in good condition. All counts were correct at end of case. DELLA/DASH Voice ID: [id number] Report ID: [id number]
[2023-07-31 05:38] LABS: Absolute Lymphocytes (CBC) 0.6 K/uL (0.7-4.9); Absolute Monocytes 0.2 K/uL (0.1-1.3); Absolute Neutrophil 6.7 K/uL (1.8-8.0); Basophils % 0.1 % (0-1.3); Hematocrit 27.8 % (39.6-49.0); Hemoglobin 9.1 g/dL (13.6-17.9); Lymphocytes % 7.8 % (15.3-44.8); MCH 28.7 pg (27.0-35.0); MCHC 32.7 g/dL (32.0-36.0); MCV 87.9 fL (80-100); MPV 7.9 fL (7.6-11.3); Monocytes % 2.9 % (3.3-12.3); Neutrophils % 89.2 % (41.7-73.7); Nucleated Red Blood Cells % 0.1 % (0-0); Platelets 318 thou/uL (152-406); RBC Red Blood Cell Count 3.17 M/uL (4.33-5.43); Red Cell Distribution Width 14.2 % (12.1-15.2)
[2023-07-31 05:45] LABS: Anion Gap 10.1 mEq/L (5.0-15.0); Magnesium 2.1 mg/dL (1.6-2.4); Potassium 4.1 mEq/L (3.5-5.1)
--- NOTE | 2023-07-31 07:07 | P.PN ---
Subjective Date of Service: 07/31/23 Chief Complaint: Osteomyelitis Status post I&D left lower extremity, LEFT Foot Osteomyelitis with Abscess and Necrosis, dry dressing On IV antibiotics, pain control with as needed medication - Physical Exam General: Alert, In no apparent distress, Oriented x3, Other (Nonverbal) HEENT: Atraumatic, Normocephalic Respiratory: Clear to auscultation bilaterally, Normal air movement Cardiovascular: No edema, Normal pulses Capillary refill: <2 Seconds Gastrointestinal: Normal bowel sounds, Soft and benign Musculoskeletal: No swelling, No contractures, Other (Left foot infection, right AKA) Integumentary: Other (Left foot surgical dressing dry and intact Neurological: Abnormal gait, Abnormal speech Review of Systems Per HPI Physical Examination - Vital Signs Temperature: 96.4 F Blood Pressure: 150/64 Pulse: 55 Respirations: 20 Pulse Ox (%): 95 Assessment And Plan - Plan Assessment plan lSepsis without shock acute on chronic Left foot wound Lactic acidosis Chronic left foot wound with black and blue discoloration over the distal foot. Initial lactic 5.5, repeat 1 point Infectious disease consult Left Foot Osteomyelitis complicated by Peripheral Vascular Disease - MRI Left foot 07/28: "Signal abnormalities concerning for osteomyelitis around the second metatarsophalangeal joint, base of the first metatarsal post amputation, and the fifth metatarsal at the head and base as described above. Questionable similar signal abnormalities in the medial cuneiform" - Arterial doppler from 04/07/23 reporting severe peripheral vascular disease with varying degrees of stenoses involving nearly all of the major arterial structures in the left lower extremity. - Currently on Zosyn and Vancomycin - Blood cultures 07/28: pending - general surgery consulted for amputation - Afebrile. - no leukocytosis. slightly elevated lymphocytes. peripheral vascular disease Surgery consulted, MRI of the left lower extremity, 07/28 n.p.o. after midnight IV vancomycin, IV Zosyn, Blood cultures ordered, Wound care ordered Trend lactic, IV fluids CVA aphasia Dysphagia Nonverbal Supportive care, fall precaution Anemia Anxiety depressive disorder diabetes unknown control Medicines, insulin, Accu-Cheks Hypertensive disorder EKG independently reviewed and interpreted by me, shows normal sinus rhythm, rate of 82, no acute ST segment elevations, nonconcerning intervals. . Hypothyroidism insomnia Resume appropriate home meds Full code Diet cardiac DVT SCDs Disposition, [facility] Discharge Plan: [facility] - Code Status/Comfort Care Code Status: Full Code Critical Care: No Time Spent Managing PTS Care (In Minutes): 35
[2023-07-31 08:20] LABS: Blood Morphology Comment NOT SEEN (NOT SEEN); Platelet Estimate ADEQ; White Blood Cell Scan OK (OK)
[2023-08-01 04:32] LABS: Absolute Lymphocytes (CBC) 1.5 K/uL (0.7-4.9); Absolute Monocytes 0.5 K/uL (0.1-1.3); Absolute Neutrophil 5.1 K/uL (1.8-8.0); Basophils % 0.3 % (0-1.3); Eosinophils % 0.3 % (0-4.4); Hematocrit 25.4 % (39.6-49.0); Hemoglobin 8.5 g/dL (13.6-17.9); MCHC 33.4 g/dL (32.0-36.0); MPV 8.1 fL (7.6-11.3); Monocytes % 7.5 % (3.3-12.3); Neutrophils % 70.9 % (41.7-73.7); Platelets 260 thou/uL (152-406); RBC Red Blood Cell Count 2.92 M/uL (4.33-5.43); Red Cell Distribution Width 13.9 % (12.1-15.2)
[2023-08-01 04:48] LABS: Anion Gap 7.8 mEq/L (5.0-15.0); Magnesium 2.1 mg/dL (1.6-2.4); Potassium 3.8 mEq/L (3.5-5.1)
[2023-08-01] MEDS: POTASSIUM CL SA 10 MEQ TAB PO ONE (05:42)
--- NOTE | 2023-08-01 07:44 | P.PN ---
Subjective Date of Service: 08/01/23 Chief Complaint: Osteomyelitis Status post I&D left lower extremity, LEFT Foot Osteomyelitis with Abscess and Necrosis, dry dressing On IV antibiotics, pain control with as needed medication tuesday 08/01 need request PICC line for [facility] antibiotics if no amputation 07/30 Cardiology consult to eval for occlusion of left lower extremity - Physical Exam General: Alert, In no apparent distress, Oriented x3, Other (Nonverbal) HEENT: Atraumatic, Normocephalic Respiratory: Clear to auscultation bilaterally, Normal air movement Cardiovascular: No edema, Normal pulses Capillary refill: <2 Seconds Gastrointestinal: Normal bowel sounds, Soft and benign Musculoskeletal: No swelling, No contractures, Other (Left foot infection, right AKA) Integumentary: Other (Left foot surgical dressing dry and intact Neurological: Abnormal gait, Abnormal speech Review of Systems Per HPI Physical Examination - Vital Signs Temperature: 97.1 F Blood Pressure: 106/62 Pulse: 50 Respirations: 17 Pulse Ox (%): 98 Assessment And Plan - Plan Assessment plan lSepsis without shock acute on chronic Left foot wound Lactic acidosis improved Chronic left foot wound with black and blue discoloration over the distal foot. Initial lactic 5.5, repeat 1 point Infectious disease consult Left Foot Osteomyelitis complicated by Peripheral Vascular Disease - MRI Left foot 07/28: "Signal abnormalities concerning for osteomyelitis around the second metatarsophalangeal joint, base of the first metatarsal post amputation, and the fifth metatarsal at the head and base as described above. Questionable similar signal abnormalities in the medial cuneiform" - Arterial doppler from 04/07/23 reporting severe peripheral vascular disease with varying degrees of stenoses involving nearly all of the major arterial structures in the left lower extremity. - Currently on Zosyn and Vancomycin - Blood cultures 07/28: pending - general surgery consulted for amputation - Afebrile. - no leukocytosis. slightly elevated lymphocytes. 07/31 will need PIC line IV ABX if no AKA[facility]BKA [facility] consulted, MRI of the left lower extremity, 07/28 n.p.o. after midnight IV vancomycin, IV Zosyn, Blood cultures ordered, Wound care ordered Trend lactic, IV fluids CVA aphasia Dysphagia Nonverbal Supportive care, fall precaution Anemia microcytic 9.1, 8.5 Transfuse less than 7 Anxiety depressive disorder diabetes unknown control Medicines, insulin, Accu-Cheks Hypertensive disorder EKG independently reviewed and interpreted by me, shows normal sinus rhythm, rate of 82, no acute ST segment elevations, nonconcerning intervals. . Hypothyroidism insomnia Resume appropriate home meds Full code Diet cardiac DVT SCDs Disposition, [facility] in the [facility] Discharge Plan: Shelter - Code Status/Comfort Care Code Status: Full Code Critical Care: No Time Spent Managing PTS Care (In Minutes): 35
--- NOTE | 2023-08-01 13:44 | P.CNS ---
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 Allergies No Known Allergies Allergy (Unverified 03/13/23 21:34) Home Medications: Acetaminophen [Tylenol] 650 mg PO Q6HP PRN 03/13/23 Ascorbic Acid [C-500] 500 mg PO DAILY 03/13/23 Aspirin 81 mg PO DAILY 03/13/23 Atorvastatin Calcium [Lipitor*] 20 mg PO BEDTIME 03/13/23 Cyanocobalamin [Vitamin B-12*] 1,000 mcg PO DAILY 03/13/23 Divalproex [Depakote Sprinkle*] 4 cap PO BEDTIME 03/13/23 Furosemide [Lasix] 20 mg PO DAILY 03/13/23 Insulin Glargine,Hum.rec.anlog [Lantus Solostar] 30 unit SQ BEDTIME 03/13/23 Metoprolol Tartrate [Lopressor*] 12.5 mg PO BID 03/13/23 Mirtazapine [Remeron*] 15 mg PO BEDTIME 03/13/23 Nitroglycerin [Nitrostat*] 0.4 mg SL SEECOM PRN 03/13/23 Tamsulosin [Flomax*] 0.4 mg PO BEDTIME 03/13/23 Zinc Gluconate [Zinc] 50 mg PO DAILY 03/13/23 Tramadol HCl [Ultram] 50 mg PO Q6HP PRN 04/06/23 Collagenase [Santyl Ointment] 1 appl TOP DAILY 07/30/23 Insulin Aspart [Novolog Flexpen] See Protocol SQ SEECOM 07/30/23 Mupirocin Oint [Bactroban 2% Ointment*] 1 appl TOP DAILY 07/30/23 - Past Medical/Surgical History Diabetic: Yes -: CVA R) weakness, aphasia -: Diabetes -: HTN -: HLD -: Anxiety, Depression -: PVD -: hypothyroidism -: Diabetes -: Right AKA -: Left great toe amputation Psychosocial/ Personal History: [facility] HOME - Social History Smoking Status: Unknown if ever smoked Alcohol use: No CD- Drugs: No Caffeine use: No Review of Systems 10-point ROS is otherwise unremarkable Physical Examination Temp Pulse Resp BP Pulse Ox 97.1 F 50 17 106/62 98 08/01/23 12:19 08/01/23 12:19 08/01/23 12:19 08/01/23 12:19 08/01/23 12:19 General: Alert, Oriented x3 HEENT: Atraumatic Neck: Supple Respiratory: Clear to auscultation bilaterally Cardiovascular: No edema, Normal S1 S2 Gastrointestinal: Normal bowel sounds - Problems (1) Peripheral vascular disease Current Visit: No Status: Chronic Plan: Patient situation is very complex due to occluded lower abdominal aorta and occluded bilateral aortofemoral grafts, will discuss case further with vascular team to see if there is any possible intervention for patient. continue ASA 81 mg daily continue lipitor if possible.
[2023-08-02 04:46] LABS: Absolute Eosinophils 0.1 K/uL (0-0.5); Absolute Lymphocytes (CBC) 1.9 K/uL (0.7-4.9); Absolute Monocytes 0.7 K/uL (0.1-1.3); Absolute Neutrophil 4.2 K/uL (1.8-8.0); Basophils % 0.5 % (0-1.3); Eosinophils % 1.1 % (0-4.4); Hematocrit 26.2 % (39.6-49.0); Hemoglobin 8.7 g/dL (13.6-17.9); MCH 28.7 pg (27.0-35.0); MCHC 33.2 g/dL (32.0-36.0); MCV 86.4 fL (80-100); Monocytes % 10.8 % (3.3-12.3); Neutrophils % 60.6 % (41.7-73.7); Platelets 279 thou/uL (152-406); RBC Red Blood Cell Count 3.03 M/uL (4.33-5.43); Red Cell Distribution Width 14.3 % (12.1-15.2)
[2023-08-02 04:51] LABS: Magnesium 2.1 mg/dL (1.6-2.4)
--- NOTE | 2023-08-02 09:29 | P.PN ---
Date of Service: 08/02/23 Chief Complaint: Osteomyelitis Subjective: In no apparent distress. No acute events overnight. Pending vascular surgery evaluation. s/p amputation of left 2nd and 3rd toe on 07/29. Physical Examination Temp Pulse Resp BP Pulse Ox 97.6 F 65 16 149/58 H 97 08/02/23 08:00 08/02/23 08:00 08/02/23 08:00 08/02/23 08:00 08/02/23 08:00 General: In no apparent distress. Aphasic HEENT: Atraumatic, Normocephalic Respiratory: Clear to auscultation bilaterally, Normal air movement. Cardiovascular: No edema, Regular rate/rhythm. Gastrointestinal: Normal bowel sounds, Soft and benign Musculoskeletal: prior left first toe amputation. Right AKA Integumentary: s/p amputation of left 2nd and 3rd toe, dressing clean dry intact. Laboratory Data - Reviewed Microbiology Data - Reviewed Imagings Data: - Reviewed Assessment and Plan Problem List Left Foot Osteomyelitis Peripheral Vascular Disease Hx CVA, aphasia Anemia Diabetes Mellitus Hypothyroidism Hypertension Left Foot Osteomyelitis complicated by Peripheral Arterial Disease - MRI Left foot 07/28: "Signal abnormalities concerning for osteomyelitis around the second metatarsophalangeal joint, base of the first metatarsal post amputation, and the fifth metatarsal at the head and base as described above. Questionable similar signal abnormalities in the medial cuneiform" - Arterial doppler from 04/07/23 reporting severe peripheral vascular disease with varying degrees of stenoses involving nearly all of the major arterial structures in the left lower extremity. - Currently on Zosyn and Vancomycin - Blood cultures 07/28: no growth to date - s/p Amputation of left second and third toes of the left foot and Debridement of left foot necrotic tissue on 07/[address] Carne. - Afebrile. - no leukocytosis. slightly elevated lymphocytes. Recommendations - s/p amputation of left 2nd and 3rd toes 07/29. Continue antibiotic therapy for 7-10 days. - Wound/surgical site care per Dr. Crane. - patient with severe PAD, recommend vascular consult - CBC, BMP and vanco trough - Continue supportive care - Pressure offloading measures Case discussed with Sharon Johnson
--- NOTE | 2023-08-02 17:07 | P.PN ---
Date of Service: 08/02/23 Subjective: No pain, no complaints this am. Vital Signs: reviewed Physical Exam: General: Alert, In no apparent distress, Oriented x3, Other (Nonverbal) HEENT: Atraumatic, Normocephalic Respiratory: Clear to auscultation bilaterally, Normal air movement Cardiovascular: No edema, Normal pulses Capillary refill: <2 Seconds Gastrointestinal: Normal bowel sounds, Soft and benign Musculoskeletal: No swelling, right hand contractures, right AKA. Left foot in clean and dry surgical dressing. Integumentary: Other (Left foot discoloration/wound with black and blue ) Neurological: Abnormal tone (right sided upper extremity increased), Abnormal speech Assessment and Plan Problem List Left Foot Osteomyelitis Peripheral Vascular Disease Hx CVA, aphasia Anemia Diabetes Mellitus Hypothyroidism Hypertension Left Foot Osteomyelitis complicated by Peripheral Arterial Disease - MRI Left foot 07/28: "Signal abnormalities concerning for osteomyelitis around the second metatarsophalangeal joint, base of the first metatarsal post ampu tation, and the fifth metatarsal at the head and base as described above. Questionable similar signal abnormalities in the medial cuneiform" - Arterial doppler from 04/07/23 reporting severe peripheral vascular disease with varying degrees of stenosis involving nearly all of the major arterial structures in the left lower extremity. - Currently on Zosyn and Vancomycin - will stop Zosyn and start Levaquin po - Blood cultures 07/28: no growth to date - s/p Amputation of left second and third toes of the left foot and Debridement of left foot necrotic tissue on 07/[address] Crane. Plan for BKA next week. - Afebrile. - no leukocytosis. slightly elevated lymphocytes. Plan: - s/p amputation of left 2nd and 3rd toes 07/29. Continue antibiotic therapy for 7-10 days. - Wound/surgical site care per Dr. Crane. Plan for BKA next week. Will continue IV Vanc and po Levaquin in [place] until amputation - CBC, BMP and vanco trough - Continue supportive care - Pressure offloading measures <Lluvia Luna - Last Filed: 08/02/23 17:08> Patient seen and examined. Agree with findings as mentioned above. Patient will discharge in the morning with outpatient surgery follow-up for below-knee amputation per surgery request. <Veronica Irving - Last Filed: 08/06/23 02:24>
[2023-08-02] MEDS: PIPER TAZO 3.375 GM in NA CHLORIDE 0.9% 100 ML IV SCH (20:49)
[2023-08-03 08:43] LABS: Anion Gap 8.7 mEq/L (5.0-15.0); Potassium 3.7 mEq/L (3.5-5.1)
[2023-08-03] MEDS: VANCOMYCIN 1.25 GM in NA CHLORIDE 0.9% 250 ML IVPB SCH (09:02)
--- NOTE | 2023-08-03 09:15 | P.DS ---
Admission Date: 07/29/23 Discharge Date: 08/03/23 Reason for Admission: Osteomyelitis Consultations: Cardiology, infectious disease Brief History of Present Illness: 62 yrs old Male with past medical history of Anemia; Anxiety; Aphasia; Cerebrovascular accident with dysphasia; depressive disorder; diabetes mellitus; Hypertensive disorder; Hypothyroidism; insomnia; peripheral vascular disease; known abdominal aneurysm presents to ER via EMS with complaints of fever. No measured temp inpatient. Patient is nonverbal after CVA, prior ampuation, right AKA presented to the emergency room with increasing confusion, lethargy. HPI per medical records secondary to patient nonverbal. Reported being treated for left foot wound s/p partial amputation. ED course: Foot x-ray shows concern for osteomyelitis. MRI of the left foot ordered, surgery consulted, patient treated with IV vancomycin, Zosyn. Hospital Course: TATIANA KNIGHT is a(n) 62 years old male receiving Vancomycin 1250 mg IV every 24 hours for OME to LEFT foot amputation site, today is day of IV Vancomycin and Zosyn for OME and sepsis. Blood cultures remain negative. Will continue vancomycin in the SC, switch zosyn to po Levaquin. Dr. Crane will contact SC and plan Left BKA next week. <Lluvia Luna - Last Filed: 08/03/23 09:17> Admission Date: 07/29/23 Discharge Date: 08/03/23 Hospital Course: Patient seen and examined. Agree with findings as mentioned above. Patient will continue with IV antibiotics and patient will follow-up with surgery as an outpatient to arrange for below-knee amputation. <Veronica Irving - Last Filed: 08/06/23 02:25> Disposition: TRANSFER TO [facility] Discharge Condition: FAIR Vital Signs/Physical Exam: Temp Pulse Resp BP Pulse Ox 97.1 F 66 18 150/70 H 97 08/03/23 04:00 08/03/23 04:00 08/03/23 04:00 08/03/23 04:00 08/03/23 04:00 General: Alert, In no apparent distress, Other (right sided weakness, aphasic) HEENT: Atraumatic, Normocephalic Neck: 2+ carotid pulse no bruit Respiratory: Normal air movement Cardiovascular: No edema Capillary refill: <2 Seconds Gastrointestinal: Soft and benign Musculoskeletal: Other (left foot wound/partial amputation, Right AKA) Integumentary: No rashes Neurological: Abnormal speech, Abnormal tone Lymphatics: No axilla or inguinal lymphadenopathy External genitalia: Deferred Rectal: Deferred Laboratory Data at Discharge: WBC 6.90 thou/uL (4.3-10.9) 08/02/23 04:17 Hgb 8.7 g/dL (13.6-17.9) L 08/02/23 04:17 Hct 26.2 % (39.6-49.0) L 08/02/23 04:17 Plt Count 279 thou/uL (152-406) 08/02/23 04:17 PT 14.3 SECONDS (9.5-12.5) H 07/29/23 11:55 INR 1.31 07/29/23 11:55 APTT 29.5 SECONDS (24.3-36.9) 07/29/23 11:55 Sodium 140 mEq/L (136-145) 08/03/23 06:20 Potassium 3.7 mEq/L (3.5-5.1) 08/03/23 06:20 BUN 12 mg/dL (7-18) 08/03/23 06:20 Creatinine 1.11 mg/dL (0.70-1.30) 08/03/23 06:20 Glucose 201 mg/dL (74-106) H 08/03/23 06:20 Phosphorus 2.9 mg/dL (2.5-4.9) 07/30/23 07:40 Magnesium 2.1 mg/dL (1.6-2.4) 08/02/23 04:17 Total Bilirubin 0.4 mg/dL (0.2-1.0) 07/29/23 11:55 AST 16 U/L (15-37) 07/29/23 11:55 ALT 12 U/L (16-61) L 07/29/23 11:55 Alkaline Phosphatase 57 U/L (45-117) 07/29/23 11:55 <Luna,Lluvia Anthony - Last Filed: 08/03/23 09:17> Vital Signs/Physical Exam: Temp Pulse Resp BP Pulse Ox 97.9 F 60 14 127/57 L 98 08/03/23 08:00 08/03/23 08:00 08/03/23 08:00 08/03/23 08:00 08/03/23 08:00 Laboratory Data at Discharge: WBC 6.90 thou/uL (4.3-10.9) 08/02/23 04:17 Hgb 8.7 g/dL (13.6-17.9) L 08/02/23 04:17 Hct 26.2 % (39.6-49.0) L 08/02/23 04:17 Plt Count 279 thou/uL (152-406) 08/02/23 04:17 PT 14.3 SECONDS (9.5-12.5) H 07/29/23 11:55 INR 1.31 07/29/23 11:55 APTT 29.5 SECONDS (24.3-36.9) 07/29/23 11:55 Sodium 140 mEq/L (136-145) 08/03/23 06:20 Potassium 3.7 mEq/L (3.5-5.1) 08/03/23 06:20 BUN 12 mg/dL (7-18) 08/03/23 06:20 Creatinine 1.11 mg/dL (0.70-1.30) 08/03/23 06:20 Glucose 201 mg/dL (74-106) H 08/03/23 06:20 Phosphorus 2.9 mg/dL (2.5-4.9) 07/30/23 07:40 Magnesium 2.1 mg/dL (1.6-2.4) 08/02/23 04:17 Total Bilirubin 0.4 mg/dL (0.2-1.0) 07/29/23 11:55 AST 16 U/L (15-37) 07/29/23 11:55 ALT 12 U/L (16-61) L 07/29/23 11:55 Alkaline Phosphatase 57 U/L (45-117) 07/29/23 11:55 <Veronica Irving - Last Filed: 08/06/23 02:25> <Lluvia Luna - Last Filed: 08/03/23 09:17> <Veronica Irving - Last Filed: 08/06/23 02:25> Home Medications: Acetaminophen [Tylenol] 650 mg PO Q6HP PRN 03/13/23 Ascorbic Acid [C-500] 500 mg PO DAILY 03/13/23 Aspirin 81 mg PO DAILY 03/13/23 Atorvastatin Calcium [Lipitor*] 20 mg PO BEDTIME 03/13/23 Cyanocobalamin [Vitamin B-12*] 1,000 mcg PO DAILY 03/13/23 Divalproex [Depakote Sprinkle*] 4 cap PO BEDTIME 03/13/23 Furosemide [Lasix] 20 mg PO DAILY 03/13/23 Insulin Glargine,Hum.rec.anlog [Lantus Solostar] 30 unit SQ BEDTIME 03/13/23 Metoprolol Tartrate [Lopressor*] 12.5 mg PO BID 03/13/23 Mirtazapine [Remeron*] 15 mg PO BEDTIME 03/13/23 Nitroglycerin [Nitrostat*] 0.4 mg SL SEECOM PRN 03/13/23 Tamsulosin [Flomax*] 0.4 mg PO BEDTIME 03/13/23 Zinc Gluconate [Zinc] 50 mg PO DAILY 03/13/23 Tramadol HCl [Ultram] 50 mg PO Q6HP PRN 04/06/23 Collagenase [Santyl Ointment*] 1 appl TOP DAILY 07/30/23 Insulin Aspart [Novolog Flexpen] See Protocol SQ SEECOM 07/30/23 Mupirocin Oint [Bactroban 2% Ointment*] 1 appl TOP DAILY 07/30/23 Physician Discharge Instructions: 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 Dr. Crane will set up left BKA next week Followup: Papito Crane MD [ACTIVE - CAN ADMIT] - Tyler Allan MD [Primary Care Provider] -
[2023-08-03 09:56] VITALS: BP 127/57; TEMP 97.9; O2SAT 98
--- NOTE | 2023-08-06 17:58 | EKG ---
Test Date: 2023-07-29 Test Time: 12:18:59 Circular Ripsaw Operator: RAMIRO MEASUREMENT RESULTS: Intervals: Rate: 82 MD: 150 QRSD: 84 QT: 418 QTc: 488 [place]: P: 33 MD: 150 QRS: -29 T: 48 INTERPRETIVE STATEMENTS: Poor data quality, interpretation may be adversely affected Sinus rhythm Inferior infarct, age undetermined Abnormal ECG Compared to ECG 03/13/2023 17:11:57 Myocardial infarct finding now present Ventricular premature complex(es) no longer present Left-axis deviation no longer present T-wave abnormality no longer present Possible ischemia no longer present Electronically Signed On 08-06-23 17:34:43 CDT by Kareem Hutchison
== END 2023-08-03 14:25 | DRG 853 ==
LOC: ER 11:21 → ERHOLD 15:54 → 4TH 19:13
PROVIDERS: ADMIT Hospitalist; ATTEND Hospitalist
PROC: 0Y6S0Z0 Detachment at Left 2nd Toe, Complete, Open Approach (ICD-10-PCS; 2023-07-30)
PROC: 0Y6U0Z0 Detachment at Left 3rd Toe, Complete, Open Approach (ICD-10-PCS; 2023-07-30)
PROC: 02HV33Z Insertion of Infusion Device into Superior Vena Cava, Percutaneous Approach (ICD-10-PCS; 2023-07-30)
PROC: 0JBR0ZZ Excision of Left Foot Subcutaneous Tissue and Fascia, Open Approach (ICD-10-PCS; principal; 2023-07-30 18:15)
DX: A41.9 Sepsis, unspecified organism (principal); G93.41 Metabolic encephalopathy; E87.20 Acidosis, unspecified; L02.612 Cutaneous abscess of left foot; M86.172 Other acute osteomyelitis, left ankle and foot; E11.69 Type 2 diabetes mellitus with other specified complication; E11.51 Type 2 diabetes mellitus with diabetic peripheral angiopathy without gangrene; I10 Essential (primary) hypertension; F41.9 Anxiety disorder, unspecified; E03.9 Hypothyroidism, unspecified; D50.9 Iron deficiency anemia, unspecified; G47.00 Insomnia, unspecified; I69.320 Aphasia following cerebral infarction; I69.391 Dysphagia following cerebral infarction; R13.10 Dysphagia, unspecified; Z95.1 Presence of aortocoronary bypass graft; Z79.4 Long term (current) use of insulin; Z79.82 Long term (current) use of aspirin; Z79.899 Other long term (current) drug therapy; Z89.422 Acquired absence of other left toe(s); Z89.611 Acquired absence of right leg above knee
CPT/HCPCS: 36415; 71045; 80048; 80053; 80202; 82947; 83605; 83735; 84100; 85025; 85610; 85730; 87040; 88304; 88305; 88311; 93005; 93925; 99285; J2001; J2543; J2704; J3010; J7030; J7050; J7120

== ENCOUNTER 2023-08-25 20:11 | Inpatient (IN) | payer OTHER ==
[2023-08-25] MEDS ORDERED: VANCOMYCIN 1 GM/VIAL ONE (20:42)
[2023-08-25] MEDS ORDERED: NOREPINEPHRINE BITARTRATE/D5W 4 MG/250 ML BAG IV ONE (20:43)
[2023-08-25] MEDS ORDERED: PIPERACIL/TAZO 3.375 GM VIAL IV ONE (20:43)
[2023-08-25] MEDS ORDERED: NA CHLORIDE 0.9% 250 ML ONE (20:43)
[2023-08-25] MEDS ORDERED: NA CHLORIDE 0.9% 100 ML ONE (20:43)
[2023-08-25] MEDS ORDERED: NA CHLORIDE 0.9% 2,000 ML ONE (20:44)
[2023-08-25] MEDS ORDERED: ALBUMIN HUMAN 25% 100 ML IV ONE (20:44)
[2023-08-25 21:00] LABS: Absolute Eosinophils 0.1 K/uL (0-0.5); Absolute Lymphocytes (CBC) 1.7 K/uL (0.7-4.9); Absolute Monocytes 0.9 K/uL (0.1-1.3); Absolute Neutrophil 5.2 K/uL (1.8-8.0); Basophils % 0.4 % (0-1.3); Eosinophils % 1.8 % (0-4.4); Hematocrit 26.2 % (39.6-49.0); Hemoglobin 8.6 g/dL (13.6-17.9); Lymphocytes % 21.4 % (15.3-44.8); MCH 28.3 pg (27.0-35.0); MCHC 32.9 g/dL (32.0-36.0); MPV 7.9 fL (7.6-11.3); Monocytes % 11.4 % (3.3-12.3); Nucleated Red Blood Cells % 0.1 % (0-0); Platelets 221 thou/uL (152-406); RBC Red Blood Cell Count 3.04 M/uL (4.33-5.43); Red Cell Distribution Width 14.4 % (12.1-15.2)
[2023-08-25 21:03] LABS: Blood O2 Saturation 99.4 % (92-98.5)
[2023-08-25 21:04] LABS: Arterial Blood Carboxyhemoglob 1.1 % (0-1.5); Blood Gas Oxyhemoglobin 96.9 % (94-97); Blood Gas THB 9.2 g/dl (12-18)
[2023-08-25 21:09] LABS: PT Prothrombin Time 14.2 SECONDS (9.5-12.5); PTT, Activated Partial Thromb 30.3 SECONDS (24.3-36.9); Protime INR 1.3
[2023-08-25] MEDS: NOREPINEPHRINE 4 MG in D5W 250 ML IV SCH (21:10)
[2023-08-25 21:15] LABS: AST/SGOT 13 U/L (15-37); Albumin 1.9 g/dL (3.4-5.0); Albumin/Globulin Ratio 0.4 (1.1-1.8); Alkaline Phosphatase 58 U/L (45-117); Anion Gap 8.2 mEq/L (5.0-15.0); BUN Blood Urea Nitrogen 18 mg/dL (7-18); Bicarbonate 30 mEq/L (21-32); Bilirubin Total 0.3 mg/dL (0.2-1.0); Globulin 4.9 g/dL (2.3-3.5); Glomerular Filtration Rate 66 ml/min (=/>90); Glucose Level 126 mg/dL (74-106); Potassium 3.2 mEq/L (3.5-5.1); Protein, Total 6.8 g/dL (6.4-8.2); Sodium Level 141 mEq/L (136-145)
--- NOTE | 2023-08-25 21:21 | RAD REPORT ---
EXAM DESCRIPTION: [place] Single View08/25/2023 8:55 pm CLINICAL HISTORY: CHEST PAIN COMPARISON: Chest Single View dated 07/30/2023; Chest Single View dated 07/30/2023; Chest Single View da sasha 07/29/2023; Chest Single View dated 03/13/2023 TECHNIQUE: Portable AP view of the chest. FINDINGS: Interval placement of left IJ CVC with catheter tip along the proximal SVC. Left arm PICC unchanged in position with catheter tip at the superior cavoatrial junction. The lungs are clear. No pneumothorax or effusion. The cardiomediastinal contours are unchanged with stable cardiomegaly and postsurgical changes. IMPRESSION: No acute cardiopulmonary process. Support lines as above.
[2023-08-25 21:43] LABS: ALT/SGPT < 10 U/L (16-61)
--- NOTE | 2023-08-25 22:49 | ER ---
Nurse's Notes [facility] Name: Ariel Andrews Age: 62 yrs Sex: Male : 1960 Arrival Date: 08/25/2023 Time: 20:11 Bed 3 Private MD: Diagnosis: Osteomyelitis, unspecified;Left foot osteomyelitis, postoperative wound dehiscence, hypotension with septic shock, chronic anemia, generalized weakness, complications of immobility, Presentation: 08/24 20:13 Chief complaint: EMS states: wound to left foot. recent ABX treatment. Coronavirus lg3 screen: At this time, unable to obtain information related to travel outside the [place] Ebola Screen: No symptoms or risks identified at this time. Initial Sepsis Screen: Does the patient meet any 2 criteria? No. Patient's initial sepsis screen is negative. Does the patient have a suspected source of infection? No. Patient's initial sepsis screen is negative. Risk Assessment: Do you want to hurt yourself or someone else? Patient reports no desire to harm self or others. Onset of symptoms is unknown. 20:13 Method Of Arrival: EMS: [facility] lg3 20:13 Acuity: CROW 3 lg3 Triage Assessment: 20:18 General: Appears in no apparent distress. uncomfortable, Behavior is calm, cooperative. lg3 Pain: Complains of pain in left foot. EENT: No deficits noted. No signs and/or symptoms were reported regarding the EENT system. Neuro: No deficits noted. Alanis Agitation-Sedation Scale (RASS): 0 - Alert and Calm Level of Consciousness is awake, alert, non verbal. Cardiovascular: Capillary refill < 3 seconds Clubbing of nail beds is absent JVD is absent Patient's skin is warm and dry. Respiratory: No deficits noted. Airway is patent Respiratory effort is even, unlabored, Respiratory pattern is regular, symmetrical, Breath sounds are clear bilaterally. GI: No deficits noted. Abdomen is flat, non-distended. : No deficits noted. No signs and/or symptoms were reported regarding the genitourinary system. Derm: Skin is intact, Skin is dry, Skin is normal, Skin temperature is warm Wound noted left foot. Musculoskeletal: Circulation, motion, and sensation intact. Range of motion: right arm contracture. limited range of motion in left arm. right AKA. limited range of motion in left leg. Historical: - Allergies: 20:18 No Known Allergies; lg3 - PMHx: 20:18 Anemia; Anxiety; Aphasia; Cerebrovascular accident; depressive disorder; diabetes lg3 mellitus; DYSPHAGIA; Hypertensive disorder; Hypothyroidism; insomnia; peripheral vascular disease; Transient cerebral ischemia; - PSHx: 20:18 Coronary artery bypass graft; right AKA; left toe 1-3 amputation (right AKA); lg3 - Immunization history:: Adult Immunizations unknown. - Infectious Disease History:: Denies. - Social history:: Smoking status: unknown. - Family history:: not pertinent. Screenin:32 [facility] ED Fall Risk Assessment (Adult) History of falling in the last 3 months, lg3 including since admission No falls in past 3 months (0 pts). Abuse screen: Denies threats or abuse. Denies injuries from another. Nutritional screening: No deficits noted. Tuberculosis screening: No symptoms or risk factors identified. Assessment: 20:32 General: see triage assessment. lg3 22:38 Reassessment: Patient appears in no apparent distress at this time. No changes from lg3 previously documented assessment. Patient and/or family updated on plan of care and expected duration. Pain level reassessed. Patient is alert, oriented x 3, equal unlabored respirations, skin warm/dry/pink. 08/25 00:35 Reassessment: Patient appears in no apparent distress at this time. No changes from lg3 previously documented assessment. Patient and/or family updated on plan of care and expected duration. Pain level reassessed. Patient is alert, oriented x 3, equal unlabored respirations, skin warm/dry/pink. Vital Signs: 08/24 20:13 BP 89 / 45; Pulse 70; Resp 15 S; Temp 98.5(O); Pulse Ox 100% on R/A; Weight 70.76 kg lg3 (M); Height 5 ft. 9 in. (R); 20:50 BP 55 / 50; Pulse 68; Resp 15 S; Pulse Ox 99% on R/A; MAP 58 mmHg; kb3 21:20 BP 150 / 55; Pulse 65; Resp 15 S; Pulse Ox 100% on R/A; MAP 84 mmHg; kb3 21:30 BP 144 / 43; Pulse 57; Resp 15 S; Pulse Ox 100% on R/A; MAP 70 mmHg; kb3 22:00 BP 146 / 46; Pulse 62; Resp 15 S; Pulse Ox 100% on R/A; MAP 71 mmHg; kb3 22:15 BP 130 / 37; Pulse 51; Resp 16 S; Pulse Ox 100% on R/A; MAP 60 mmHg; kb3 22:30 BP 125 / 61; Pulse 53; Resp 14 S; Pulse Ox 100% on R/A; MAP 74 mmHg; kb3 23:00 BP 136 / 58; Pulse 56; Resp 16 S; Pulse Ox 100% on R/A; MAP 74 mmHg; kb3 23:30 BP 149 / 72; Pulse 59; Resp 16 S; Pulse Ox 100% on R/A; MAP 74 mmHg; kb3 08/25 00:00 BP 168 / 73; Pulse 52; Resp 16 S; Pulse Ox 100% on R/A; MAP 83 mmHg; kb3 08/24 20:13 Body Mass Index 23.04 (70.76 kg, 175.26 cm) lg3 Tej Coma Score: 08/24 22:36 Eye Response: spontaneous(4). Motor Response: obeys commands(6). Verbal Response: sp4 incomprehensible(2). Total: 12. ED Course: 20:13 Patient arrived in ED. lg3 20:13 Derrick Baez MD is Attending Physician. sp4 20:18 Triage completed. lg3 20:18 Arm band placed on right wrist. lg3 20:32 Patient has correct armband on for positive identification. Placed in gown. Bed in low lg3 position. Call light in reach. Side rails up X2. Client placed on continuous cardiac and pulse oximetry monitoring. NIBP monitoring applied. hospital monitor on. Door closed. Noise minimized. Warm blanket given. 20:32 Assisted provider with central line placement. Set up central line tray. Triple lumen lg3 line placed in left internal jugular. Line placed by Derrick Baez MD Placement verified by CXR, blood return, Blood was collected. Patient tolerated well. Before procedure, did Practitioner(s) obtain informed consent? Yes. Patient \T\ family education about procedure, CLABSI prevention and S/S of infection? Yes. Time-out/Briefing performed prior to start of procedure? Yes. Was handwashing/sanitizing done immediately prior to procedure? Yes. Was procedure site sterilized? Yes, with chlorhexidine. Was the site allowed to dry? Yes. Was local anesthetic and/or sedation utilized? Yes. During the procedure, did the Practitioner(s) maintain a sterile field? Yes. Were unused ports clamped during insertion? Yes. Was blood aspirated from each lumen? Yes. 20:34 Procedure consent explained by physician, verbal consent obtained. lg3 20:34 Initial lab(s) drawn, by ED staff, sent to lab. First set of blood cultures drawn. lg3 20:36 Wound care: to decubitus located on left foot was soaked in normal saline solution, lg3 irrigated with normal saline, dressed with Kerlix, Patient tolerated well. 20:54 Nina Howard RN is Primary Nurse. lg3 20:55 EKG done, by ocular care technician. reviewed by Derrick Baez MD X-ray(s) taken. lg3 20:56 Chest Single View XRAY In Process Unspecified. EDMS 22:48 Asif Mckeon MD is Hospitalizing Provider. sp4 22:49 Patient admitted, IV remains in place. lg3 22:52 Foot Left 3 View XRAY In Process Unspecified. EDMS 23:11 Reinoso cath inserted, using sterile technique, 16 Fr., by streetcar repairer, balloon inflated, to lg3 gravity drainage. Administered Medications: 21:10 Drug: NS 0.9% IV 1000 ml IV at 1 bolus Per protocol; 1000 mL bolus Route: IV; Rate: 1 lg3 bolus; Site: left jugular; 22:30 Follow up: Response: No adverse reaction; IV Status: Completed infusion; IV Intake: lg3 1000ml 21:10 Drug: Norepinephrine IV 0.1 mcg/kg/min IV at calculated rate See Administration lg3 Instructions; (Standard concentration 4 mg / 250 mL D5W); Recommended max rate 3 mcg/kg/min; Titrate 0.05 mcg/kg/min as often as every 5 minutes to achieve goal (see titration policy); Goal parameter MAP greater than 65 mmHg. Route: IV; Rate: calculated rate; Site: left jugular; 21:10 Follow up: Rate change 10 mcg/min lg3 08/25 00:00 Follow up: Rate change 8 mcg/min lg3 00:45 Follow up: IV Status: Infusion continued upon admission lg3 08/24 21:10 Drug: Piperacillin-Tazobactam IVPB 3.375 grams IVPB once over 60 mins; (mix in NS 100 lg3 mL) Route: IVPB; Infused Over: 60 mins; Site: left jugular; 22:09 Follow up: Response: No adverse reaction; IV Status: Completed infusion; IV Intake: lg3 100ml 21:10 Drug: NS 0.9% IV 1000 ml IV at 125 ml/hr continuous Route: IV; Rate: 125 ml/hr; Site: lg3 left jugular; 08/25 00:45 Follow up: IV Status: Infusion continued upon admission lg3 08/24 22:09 Drug: vancoMYCIN IVPB 1 grams IVPB once over 2 hrs Route: IVPB; Infused Over: 2 hrs; lg3 Site: left jugular; 08/25 00:15 Follow up: Response: No adverse reaction; IV Status: Completed infusion; IV Intake: lg3 250ml 08/24 23:11 Drug: Albumin IVPB 25 grams 100 ml IVPB once; (Note: Albumin 25% concentration) Volume: lg3 100 ml; Route: IVPB; Site: left jugular; 08/25 00:08 Follow up: Response: No adverse reaction; IV Status: Completed infusion; IV Intake: lg3 100ml 08/24 23:11 Drug: Solu-CORTEF IVP 100 mg IVP once Route: IVP; Site: left jugular; lg3 08/25 00:08 Follow up: Response: No adverse reaction lg3 Medication: 00:35 VIS not applicable for this client. lg3 Intake: 08/24 22:09 IV: 100ml; Total: 100ml. lg3 22:30 IV: 1000ml; Total: 1100ml. lg3 08/25 00:08 IV: 100ml; Total: 1200ml. lg3 00:15 IV: 250ml; Total: 1450ml. lg3 Outcome: 08/24 22:49 Decision to Hospitalize by Provider. sp4 22:49 Admitted to ER Hold. Please see [facility] for further documentation. lg3 22:49 Condition: stable 22:49 Instructed on the need for admit, 08/25 14:45 Patient left the ED. as6 Signatures: Dispatcher [employer] EDMS Nina Howard RN RN lg3 Sam Sprague RN RN as6 Shelby Zavala RN RN kb3 Derrick Baez MD MD sp4 Corrections: (The following items were deleted from the chart) 08/24 20:20 20:18 PSHx: left toe amputation; 3 3 23:32 20:13 BP 89 / 45; Pulse 70bpm; Resp 19bpm; Spontaneous; Pulse Ox 100% RA; Temp 98.5F lg3 Oral; 156.2 kg Measured; [facility] 23:56 20:13 BP 89 / 45; Pulse 70bpm; Resp 15bpm; Spontaneous; Pulse Ox 100% RA; Temp 98.5F lg3 Oral; 156.2 kg Measured; [facility] 08/25 14:08/24 20:50 BP 55 / 50; Pulse 68bpm; Resp 15bpm; Spontaneous; Pulse Ox 99% RA; [place] [id number] 08/25 14:08/24 21:20 BP 150 / 55; Pulse 65bpm; Resp 15bpm; Spontaneous; Pulse Ox 100% RA; [place] [id number] 08/25 14:08/24 21:30 BP 144 / 43; Pulse 57bpm; Resp 15bpm; Spontaneous; Pulse Ox 100% RA; [place] [id number] 08/25 14:08/24 22:00 BP 146 / 46; Pulse 62bpm; Resp 15bpm; Spontaneous; Pulse Ox 100% RA; [place] [id number] 08/25 14:08/24 22:15 BP 130 / 37; Pulse 51bpm; Resp 16bpm; Spontaneous; Pulse Ox 100% RA; [place] [id number] 08/25 14:08/24 22:30 BP 125 / 61; Pulse 53bpm; Resp 14bpm; Spontaneous; Pulse Ox 100% RA; [place] [id number] 08/25 14:08/24 23:00 BP 136 / 58; Pulse 56bpm; Resp 16bpm; Spontaneous; Pulse Ox 100% RA; [place] [id number] 08/25 14:08/24 23:30 BP 149 / 72; Pulse 59bpm; Resp 16bpm; Spontaneous; Pulse Ox 100% RA; [place] [id number] 08/25 14: 00:00 BP 168 / 73; Pulse 52bpm; Resp 16bpm; Spontaneous; Pulse Ox 100% RA; [place] [id number]
--- NOTE | 2023-08-25 22:49 | EDPHYS ---
Physician Documentation [facility] Name: Ariel Andrews Age: 62 yrs Sex: Male : 1960 Arrival Date: 08/25/2023 Time: 20:11 Bed 3 Private MD: ED Physician Derrick Baez HPI: 08/24 20:14 This 62 yrs old Male presents to ER via Unassigned with complaints of AMS, sp4 lethargy, left foot problem. 22:29 07/30/2023 - Operative report - Postoperative Diagnosis: Left foot osteomyelitis with sp4 abscess. Procedure Performed: 1. Amputation of left second and third toes of the left foot. 2. Secondary procedure: Debridement of left foot necrotic tissue. . 62-year-old male with past medical history of anemia, anxiety, aphasia, CVA, dysphagia, depression, diabetes, hypertension, hypothyroidism, insomnia, peripheral vascular disease, abdominal aortic aneurysm, and right lower extremity above-knee amputation, also recent admission for left foot osteomyelitis and abscess status post amputation of the left second and third toes and debridement of necrotic tissue on 07/30/2023. Patient was discharged on 08/03/2023 with PICC line and IV vancomycin and p.o. Levaquin to the [facility]. Medications include acetaminophen, sorbic acid, aspirin, atorvastatin, cyanocobalamin, Depakote, furosemide, insulin, metoprolol, mirtazapine, nitroglycerin, tamsulosin, zinc, tramadol, collagenase, insulin, mupirocin. Also vancomycin via PICC line and levofloxacin p.o.. . 22:36 EMS reports patient was found by the assistedin home caregiver and lethargic condition sp4 pale and feeling unwell. Patient nonverbal on arrival appears pale and is also hypotensive on arrival blood pressure 88/50. Patient is unable to communicate ROS or HPI. Patient has right double-lumen PICC line in place, incontinent of bowel and bladder, also left lower extremity bandage saturated with necrotic exudate. . Additional report from assisted includes patient has poor appetite unable to consume p.o. liquids or solid. . Historical: - Allergies: 20:18 No Known Allergies; lg3 - PMHx: 20:18 Anemia; Anxiety; Aphasia; Cerebrovascular accident; depressive disorder; diabetes lg3 mellitus; DYSPHAGIA; Hypertensive disorder; Hypothyroidism; insomnia; peripheral vascular disease; Transient cerebral ischemia; - PSHx: 20:18 Coronary artery bypass graft; right AKA; left toe 1-3 amputation (right AKA); lg3 - Immunization history:: Adult Immunizations unknown. - Infectious Disease History:: Denies. - Social history:: Smoking status: unknown. - Family history:: not pertinent. ROS: 22:36 Constitutional: Positive for lethargy, poor appetite, feeling unwell overall, sp4 generalized weakness and hypotension 22:36 All other systems are negative, Exam: 22:36 Constitutional: Positive for heavily debilitated male, generalized weakness, sp4 generalized pallor, right above-knee amputation, left lower extremity bandage with necrotic exudate. Hypotensive on arrival Head/Face: Normocephalic, atraumatic. Eyes: Pupils equal round and reactive to light, extra-ocular motions intact. Lids and lashes normal. Conjunctiva and sclera are not injected. Cornea within normal limits. Periorbital areas with no swelling, redness, or edema. ENT: Nares patent. No nasal discharge, no septal abnormalities noted. Tympanic membranes are normal and external auditory canals are clear. Oropharynx with no redness, swelling, or masses, exudates, or evidence of obstruction, uvula midline. Mucous membranes moist. Neck: Trachea midline, no thyromegaly or masses palpated, and no cervical lymphadenopathy. Supple, full range of motion without nuchal rigidity, or vertebral point tenderness. Chest/axilla: Normal chest wall appearance and motion. Nontender with no deformity. No lesions are appreciated. Cardiovascular: Regular rate and rhythm with a normal S1 and S2. No gallops, murmurs, or rubs. Normal PMI, no JVD. No pulse deficits. Respiratory: Lungs have equal breath sounds bilaterally, clear to auscultation and percussion. No rales, rhonchi or wheezes noted. No increased work of breathing, no retractions or nasal flaring. Abdomen/GI: Soft, with normal bowel sounds. No distension or tympany. No guarding or rebound. No evidence of tenderness throughout. Back: No spinal tenderness. No costovertebral tenderness. Male : Normal genitalia with no discharge or lesions. Incontinent of bowel and bladder Skin: Warm, dry generalized pallor MS/ Extremity: Pulses equal, no cyanosis. Neurovascular intact in upper extremities. Right above-knee amputation . Left lower extremity toes 1-3 are amputated. There is necrotic exudate. Postoperative incision appears to be dehiscing with signs of tissue necrosis and gangrenous smell. Overall appears to have of postoperative wound infection some signs of dehiscence and necrosis. Neuro: Awake and alert, nonverbal on presentation but alert, generalized weakness, moves extremities without signs of new neurologic deficits. Exam is limited secondary to generalized weakness 22:49 ECG was reviewed by the Attending Physician. EKG time 20:54 sp4 Vital Signs: 20:13 BP 89 / 45; Pulse 70; Resp 15 S; Temp 98.5(O); Pulse Ox 100% on R/A; Weight 70.76 kg lg3 (M); Height 5 ft. 9 in. (R); 20:50 BP 55 / 50; Pulse 68; Resp 15 S; Pulse Ox 99% on R/A; MAP 58 mmHg; kb3 21:20 BP 150 / 55; Pulse 65; Resp 15 S; Pulse Ox 100% on R/A; MAP 84 mmHg; kb3 21:30 BP 144 / 43; Pulse 57; Resp 15 S; Pulse Ox 100% on R/A; MAP 70 mmHg; kb3 22:00 BP 146 / 46; Pulse 62; Resp 15 S; Pulse Ox 100% on R/A; MAP 71 mmHg; kb3 22:15 BP 130 / 37; Pulse 51; Resp 16 S; Pulse Ox 100% on R/A; MAP 60 mmHg; kb3 22:30 BP 125 / 61; Pulse 53; Resp 14 S; Pulse Ox 100% on R/A; MAP 74 mmHg; kb3 23:00 BP 136 / 58; Pulse 56; Resp 16 S; Pulse Ox 100% on R/A; MAP 74 mmHg; kb3 23:30 BP 149 / 72; Pulse 59; Resp 16 S; Pulse Ox 100% on R/A; MAP 74 mmHg; kb3 08/25 00:00 BP 168 / 73; Pulse 52; Resp 16 S; Pulse Ox 100% on R/A; MAP 83 mmHg; kb3 08/24 20:13 Body Mass Index 23.04 (70.76 kg, 175.26 cm) lg3 Tej Coma Score: 08/24 22:36 Eye Response: spontaneous(4). Motor Response: obeys commands(6). Verbal Response: sp4 incomprehensible(2). Total: 12. Procedures: 20:52 Central Line: the site was prepped with in sterile fashion, Hibiclens , a triple lumen sp4 catheter was inserted, in the left internal jugular vein, in 1 attempts. placement was verified, by CXR, by blood return, Ultrasound-guided central line, the site was dressed with 4X4s, Tegaderm, using sterile technique, the patient tolerated the procedure, well, Left internal jugular triple-lumen CVL 7 Hungarian placed in with ultrasound guidance at the depth of 20 cm without complications. MDM: 20:16 Patient medically screened. sp4 22:41 Differential Diagnosis altered mental status, sepsis, flu. Data reviewed: vital signs, sp4 nurses notes, EMS record, old medical records, lab test result(s), EKG, radiologic studies, plain films. Consideration of Admission/Observation Patient was admitted/placed on observation. Escalation of care including admission/observation considered. Management of patient was discussed with the following: Hospitalist: Mike NIÑO . Loading Manager: Royce NIÑO . Post IV fluid administration reassessment for Sepsis: Client not prescribed the 30 mL/kg IVF due to: concern for fluid overload. concern related to heart failure. Skin examination performed. Skin noted to have normal turgor. Current patient vital signs reviewed: Yes. Other: Sepsis reevaluation complete. Response to treatment: the patient's symptoms have markedly improved after treatment. ED course: Patient presents with hypotension, generalized weakness, generalized pallor, had to get emergent central line on arrival. Patient was started on Levophed. IV bolus was given 1 L with maintenance fluids at 125 mL/h. Full septic bolus was avoided secondary to edematous left lower extremity and signs of underlying heart failure. . 22:45 ED course: [facility] CLINICAL HISTORY: sp4 CHEST PAIN COMPARISON: Chest Single View dated 07/30/2023; Chest Single View dated 07/30/2023; Chest Single View dated 07/29/2023; Chest Single View dated 03/13/2023 TECHNIQUE: Portable AP view of the chest. FINDINGS: Interval placement of left IJ CVC with catheter tip along the proximal SVC. Left arm PICC unchanged in position with catheter tip at the superior cavoatrial junction. The lungs are clear. No pneumothorax or effusion. The cardiomediastinal contours are unchanged with stable cardiomegaly and postsurgical changes. IMPRESSION: No acute cardiopulmonary process. Support lines as above. . 08/24 20:15 Order name: Blood Culture Adult (2) 4 08/24 20:15 Order name: CBC with Diff; Complete Time: : sp4 08/24 20:15 Order name: CMP; Complete Time: : sp4 08/24 20:15 Order name: Lactate w/ 2H reflex if indic.; Complete Time: : 4 08/24 20:15 Order name: Protime (+inr); Complete Time: : 4 08/24 20:15 Order name: Ptt, Activated; Complete Time: : sp4 08/24 20:15 Order name: Urinalysis w/ reflexes; Complete Time: : sp4 08/24 20:15 Order name: ABG; Complete Time: : 4 08/24 20:45 Order name: Glucose, Ancillary Testing; Complete Time: 20:52 EDMS 08/24 22:35 Order name: Valproic Acid (depakote); Complete Time: : sp4 08/24 22:35 Order name: TSH; Complete Time: : sp4 08/24 22:35 Order name: T4 Free; Complete Time: : sp4 08/24 22:35 Order name: CRP; Complete Time: :43 sp4 08/24 23:28 Order name: CBC with Automated Diff EDMS 08/24 23:28 Order name: CBC with Automated Diff EDMS 08/24 23:28 Order name: Comprehensive Metabolic Panel EDMS 08/24 23:28 Order name: Comprehensive Metabolic Panel EDMS 08/24 23:30 Order name: Vancomycin Level Trough EDMS 08/25 02:44 Order name: Glucose, Ancillary Testing EDMS 08/25 05:47 Order name: Manual Differential EDMS 08/25 07:28 Order name: Glucose, Ancillary Testing EDMS 08/25 09:01 Order name: Potassium EDMS 08/25 09:01 Order name: Phosphorus EDMS 08/25 09:01 Order name: Magnesium EDMS 08/25 12:43 Order name: Glucose, Ancillary Testing EDMS 08/24 20:15 Order name: Chest Single View XRAY; Complete Time: 22:23 4 08/24 22:23 Order name: Foot Left 3 View XRAY [facility] 08/24 23:28 Order name: CONS Physician Consult [facility] 08/24 20:15 Order name: Accucheck; Complete Time: 20:37 sp4 08/24 20:15 Order name: Cardiac monitoring; Complete Time: 21:10 4 08/24 20:15 Order name: Cath; Complete Time: 23:11 sp4 08/24 20:15 Order name: EKG - Nurse/Tech; Complete Time: 21:11 sp4 08/24 20:15 Order name: IV Saline Lock - Large Bore; Complete Time: 20:46 4 08/24 20:15 Order name: Labs collected and sent; Complete Time: 20:46 4 08/24 20:15 Order name: O2 Per Protocol; Complete Time: 20:37 4 08/24 20:15 Order name: O2 Sat Monitoring; Complete Time: 20:37 [facility] 08/24 20:15 Order name: Vital Signs; Complete Time: 20:37 4 08/24 20:15 Order name: Central Line Kit; Complete Time: 20:37 sp4 08/24 20:16 Order name: Wound Care; Complete Time: 20:36 sp4 EC:49 Rate is 73 beats/min. Rhythm is regular, Normal Sinus Rhythm. Left axis deviation sp4 noted. CA interval is normal. QRS interval is normal. QT interval is prolonged. No Q waves. T waves are Normal. No ST changes noted. Clinical impression: No evidence of ischemia. Interpreted by me. Reviewed by me. Administered Medications: 21:10 Drug: NS 0.9% IV 1000 ml IV at 1 bolus Per protocol; 1000 mL bolus Route: IV; Rate: 1 lg3 bolus; Site: left jugular; 22:30 Follow up: Response: No adverse reaction; IV Status: Completed infusion; IV Intake: lg3 1000ml 21:10 Drug: Norepinephrine IV 0.1 mcg/kg/min IV at calculated rate See Administration lg3 Instructions; (Standard concentration 4 mg / 250 mL D5W); Recommended max rate 3 mcg/kg/min; Titrate 0.05 mcg/kg/min as often as every 5 minutes to achieve goal (see titration policy); Goal parameter MAP greater than 65 mmHg. Route: IV; Rate: calculated rate; Site: left jugular; 21:10 Follow up: Rate change 10 mcg/min 3 08/25 00:00 Follow up: Rate change 8 mcg/min lg3 00:45 Follow up: IV Status: Infusion continued upon admission 3 08/24 21:10 Drug: Piperacillin-Tazobactam IVPB 3.375 grams IVPB once over 60 mins; (mix in NS 100 lg3 mL) Route: IVPB; Infused Over: 60 mins; Site: left jugular; 22:09 Follow up: Response: No adverse reaction; IV Status: Completed infusion; IV Intake: lg3 100ml 21:10 Drug: NS 0.9% IV 1000 ml IV at 125 ml/hr continuous Route: IV; Rate: 125 ml/hr; Site: lg3 left jugular; 08/25 00:45 Follow up: IV Status: Infusion continued upon admission 3 08/24 22:09 Drug: vancoMYCIN IVPB 1 grams IVPB once over 2 hrs Route: IVPB; Infused Over: 2 hrs; lg3 Site: left jugular; 08/25 00:15 Follow up: Response: No adverse reaction; IV Status: Completed infusion; IV Intake: lg3 250ml 08/24 23:11 Drug: Albumin IVPB 25 grams 100 ml IVPB once; (Note: Albumin 25% concentration) Volume: lg3 100 ml; Route: IVPB; Site: left jugular; 08/25 00:08 Follow up: Response: No adverse reaction; IV Status: Completed infusion; IV Intake: lg3 100ml 08/24 23:11 Drug: Solu-CORTEF IVP 100 mg IVP once Route: IVP; Site: left jugular; 3 08/25 00:08 Follow up: Response: No adverse reaction lg3 Disposition Summary: 08/25/23 22:49 Hospitalization Ordered Notes: Hospitalization Status: Inpatient Admission sp4 Provider: Asif Mckeon spMichael Condition: Serious sp4 Problem: new sp4 Symptoms: have improved sp4 Bed/Room Type: Standard sp4 Location: Telemetry/MedSurg (Inpatient)(08/26/23 13:57) eb Room Assignment: [facility](08/26/23 13:57) eb Diagnosis - Osteomyelitis, unspecified sp4 - Left foot osteomyelitis, postoperative wound dehiscence, hypotension with septic sp4 shock, chronic anemia, generalized weakness, complications of immobility, Forms: - Medication Reconciliation Form sp4 - SBAR form sp4 - Leadership Thank You Letter sp4 Critical care time excluding procedures: 08/24 22:46 Critical care time: Bedside Care: 36 minutes, Consultation: 12 minutes, Family sp4 Intervention: 12 minutes. Total time: 60 minutes Signatures: Dispatcher [employer] EDMS Cheri Tracy Lacie, RN RN lg3 Opal Beaulieu 1 Derrick Baez MD MD sp4 Corrections: (The following items were deleted from the chart) 20:15 20:15 Chest Single View+RAD.RAD.BRZ ordered. EDMS EDMS 20:15 20:15 Arterial Blood Gas+RC.LAB.BRZ ordered. EDMS EDMS 20:20 20:18 PSHx: left toe amputation; lg3 lg3 22:35 22:35 VALPROIC ACID (DEPAKOTE)+C.LAB.BRZ ordered. EDMS EDMS 22:35 22:35 THYROID STIMULAT HORMONE+C.LAB.BRZ ordered. EDMS EDMS 22:35 22:35 T4 FREE+C.LAB.BRZ ordered. EDMS EDMS 08/25 00:37 08/24 22:49 Intensive Care Unit sp4 rv1 08/25 00:37 08/24 22:49 sp4 rv08/25 13:57 00:37 [facility] ER HOLD [facility] 13:57 00:37 ERHOLD- rv1 eb
[2023-08-25] MEDS ORDERED: HYDROCORTISONE SUC 100 MG INJ ONE (22:59)
--- NOTE | 2023-08-25 23:18 | P.HP ---
Certification for Inpatient Patient admitted to: Inpatient With expected LOS: >2 Midnights Practitioner: I am a practitioner with admitting privileges, knowledge of patient current condition, hospital course, and medical plan of care. Services: Services provided to patient in accordance with Admission requirements found in Title 42 Section 412.3 of the Code of Federal Regulations Patient History Date of Service: 08/25/23 Reason for admission: Generalized weakness, lethargic History of Present Illness: 62 yrs old male who was recently been admitted to the hospital with left foot osteomyelitis and abscess status post amputation of the left second and third toes and debridement of left foot necrotic tissue and was admitted to the longterm with a PICC line and was on IV antibiotics. Patient has a past medical history of anemia, anxiety, aphasia, CVA, dysphagia, depression, diabetes, hypertension, hypothyroidism, insomnia, peripheral vascular disease, abdominal aortic aneurysm, and right lower extremity above-knee amputation, also recent admission for left foot osteomyelitis and abscess status post amputation of the left second and third toes and debridement of necrotic tissue on 07/30/2023. Patient was discharged on 08/03/2023 with PICC line and IV vancomycin and p.o. Levaquin to the [facility]. He was found by the longtermhome health care provider and lethargic condition ,pale and feeling unwell. Patient nonverbal on arrival appears pale and is also hypotensive on arrival blood pressure 88/50. Patient was assessed in the ER and was started on Levophed and is admitted for further management Allergies No Known Allergies Allergy (Unverified 03/13/23 21:34) Home medications list reviewed: Yes Home Medications: Acetaminophen [Tylenol] 650 mg PO Q6HP PRN 03/13/23 Ascorbic Acid [C-500] 500 mg PO DAILY 03/13/23 Aspirin 81 mg PO DAILY 03/13/23 Atorvastatin Calcium [Lipitor*] 20 mg PO BEDTIME 03/13/23 Cyanocobalamin [Vitamin B-12*] 1,000 mcg PO DAILY 03/13/23 Divalproex [Depakote Sprinkle*] 4 cap PO BEDTIME 03/13/23 Furosemide [Lasix] 20 mg PO DAILY 03/13/23 Insulin Glargine,Hum.rec.anlog [Lantus Solostar] 30 unit SQ BEDTIME 03/13/23 Metoprolol Tartrate [Lopressor*] 12.5 mg PO BID 03/13/23 Mirtazapine [Remeron*] 15 mg PO BEDTIME 03/13/23 Nitroglycerin [Nitrostat*] 0.4 mg SL SEECOM PRN 03/13/23 Tamsulosin [Flomax*] 0.4 mg PO BEDTIME 03/13/23 Zinc Gluconate [Zinc] 50 mg PO DAILY 03/13/23 Tramadol HCl [Ultram] 50 mg PO Q6HP PRN 04/06/23 Collagenase [Santyl Ointment*] 1 appl TOP DAILY 07/30/23 Insulin Aspart [Novolog Flexpen] See Protocol SQ SEECOM 07/30/23 Mupirocin Oint [Bactroban 2% Ointment*] 1 appl TOP DAILY 07/30/23 - Past Medical/Surgical History Diabetic: Yes Past Medical History: Reviewed- Non-Contributory -: CVA R) weakness, aphasia -: Diabetes -: HTN -: HLD -: Anxiety, Depression -: PVD -: hypothyroidism -: Diabetes Past Surgical History: Reviewed- Non-Contributory -: Right AKA -: Left great toe amputation Psychosocial/ Personal History: Res[facility] - Family History Family History: Reviewed- Non-Contributory - Social History Smoking Status: Never smoker Alcohol use: No CD- Drugs: No Caffeine use: No Review of Systems is unable to be obtained Physical Examination - Vital Signs Temperature: 98.2 F Blood Pressure: 112/76 Pulse: 78 Respirations: 18 Pulse Ox (%): 98 - Physical Exam General: Alert, Mild distress, Confused HEENT: Atraumatic, Normocephalic Neck: Supple, 2+ carotid pulse no bruit Respiratory: Clear to auscultation bilaterally, Normal air movement Cardiovascular: Normal pulses, Regular rate/rhythm, Normal S1 S2 Capillary refill: <2 Seconds Gastrointestinal: Soft and benign, W/out hepatosplenomegaly, No rebound, No guarding Musculoskeletal: No clubbing, Other (Right BKA, Left foot Necrotic ulceration) Integumentary: Tenderness/swelling, Erythema Neurological: Abnormal gait, Abnormal speech Lymphatics: No axilla or inguinal lymphadenopathy - Studies Laboratory Data (last 24 hrs) 08/25/23 08/25/23 08/25/23 20:31 20:31 20:31 WBC 8.00 Hgb 8.6 L Hct 26.2 L Plt Count 221 PT 14.2 H INR 1.30 APTT 30.3 Sodium 141 Potassium 3.2 L BUN 18 Creatinine 1.23 Glucose 126 H Total Bilirubin 0.3 AST 13 L ALT < 10 L Alkaline Phosphatase 58 Assessment and Plan - Problems (Diagnosis) (1) Septic shock Current Visit: Yes Status: Acute Plan: Patient is on Levophed On IV antibiotics Will monitor lactic acid levels Titrate to MAP of more than 65 IV hydration Monitor closely in ICU (2) Osteomyelitis Current Visit: No Status: Acute Plan: Left foot osteomyelitis ER already consulted Dr. Brooks Possible amputation in a.m. Will keep n.p.o. for now Continue IV antibiotics Monitor closely Qualifiers: Osteomyelitis type: subacute Osteomyelitis location: foot Laterality: left Qualified Code(s): M86.272 - Subacute osteomyelitis, left ankle and foot (3) Anemia Current Visit: No Status: Chronic Plan: Anemia of chronic disease Monitor CBC daily Transfuse as needed Qualifiers: Anemia type: unspecified type Qualified Code(s): D64.9 - Anemia, un specified (4) Peripheral vascular disease Current Visit: No Status: Chronic Plan: Continue home medications and titrate as needed (5) Type 2 diabetes mellitus Current Visit: No Status: Chronic Plan: Insulin sliding scale Will add on basal insulin Accu-Chek q. ACH S Qualifiers: Diabetes mellitus half-way insulin use: with terminal press operator use Diabetes mellitus complication status: with hyperglycemia Qualified Code(s): E11.65 - Type 2 diabetes mellitus with hyperglycemia; Z79.4 - alf (current) use of insulin Discharge Plan: Skilled Nursing Plan to discharge in: Greater than 2 days - Advance Directives Does patient have a Living Will: No Does patient have a Durable POA for Healthcare: No - Code Status/Comfort Care Code Status: Full Code Time Spent Managing Pts Care (In Minutes): 58
[2023-08-25] MEDS ORDERED: ACETAMINOPHEN 500 MG TAB PO PRN (23:22)
[2023-08-25] MEDS ORDERED: ONDANSETRON 4 MG/2 ML VIAL IV PRN (23:22)
[2023-08-25] MEDS: VANCOMYCIN 1 GM in NA CHLORIDE 0.9% 250 ML IVPB SCH (23:27)
[2023-08-25 23:28] LABS: Thyroid Stimulating Hormone 7.57 uIU/mL (0.358-3.740); Valproic Acid (Depakene) Level 50.9 mcg/mL (50.0-100.0)
[2023-08-25] MEDS ORDERED: MORPHINE 2 MG/ML SYR IV PRN (23:28)
[2023-08-25] MEDS: NA CHLORIDE 0.9% 1,000 ML IV SCH (23:45)
[2023-08-26 00:15] LABS: Specific Gravity 1.015 (1.005-1.030); Sqamous Epithelial None Seen /HPF (None Seen); Urine Bacteria <20 /HPF (<20); Urine Bilirubin NEGATIVE (Negative); Urine Blood Negative (Negative); Urine Clarity Turbid (Clear); Urine Color Yellow (Yellow); Urine Culture Reflex Order NOT NEEDED; Urine Glucose NEGATIVE (Negative); Urine Ketones NEGATIVE (Negative); Urine Microscopic Reflex YN ORDER UMIC; Urine Mucus 2+ /HPF (None Seen); Urine Nitrite NEGATIVE (Negative); Urine Protein TRACE (Negative); Urine RBC <5 /HPF (None Seen); Urine Urobilinogen Normal (Normal); Urine WBC <5 /HPF (<5)
[2023-08-26] MEDS: VANCOMYCIN 250 MG in NA CHLORIDE 0.9% 100 ML IVPB ONE (02:00)
[2023-08-26] MEDS ORDERED: VANCOMYCIN 500 MG/VIAL ONE (02:00)
[2023-08-26] MEDS ORDERED: NA CHLORIDE 0.9% 100 ML ONE ×2 (02:00→08:51)
[2023-08-26 03:01] VITALS: BMI 22.9
[2023-08-26 05:11] LABS: Absolute Lymphocytes (CBC) 0.4 K/uL (0.7-4.9); Absolute Monocytes 0.1 K/uL (0.1-1.3); Absolute Neutrophil 5.5 K/uL (1.8-8.0); Basophils % 0.1 % (0-1.3); Eosinophils % 0.1 % (0-4.4); Hemoglobin 8.6 g/dL (13.6-17.9); Lymphocytes % 7.2 % (15.3-44.8); MCH 28.3 pg (27.0-35.0); MCV 85.8 fL (80-100); MPV 8.1 fL (7.6-11.3); Monocytes % 1.6 % (3.3-12.3); Nucleated Red Blood Cells % 0.1 % (0-0); Platelets 213 thou/uL (152-406); RBC Red Blood Cell Count 3.03 M/uL (4.33-5.43); Red Cell Distribution Width 14.3 % (12.1-15.2)
[2023-08-26 05:27] LABS: AST/SGOT 17 U/L (15-37); Albumin 2.1 g/dL (3.4-5.0); Albumin/Globulin Ratio 0.5 (1.1-1.8); Alkaline Phosphatase 48 U/L (45-117); Anion Gap 6.9 mEq/L (5.0-15.0); BUN Blood Urea Nitrogen 15 mg/dL (7-18); Bicarbonate 28 mEq/L (21-32); Bilirubin Total 0.4 mg/dL (0.2-1.0); Globulin 4.5 g/dL (2.3-3.5); Glomerular Filtration Rate 81 ml/min (=/>90); Glucose Level 211 mg/dL (74-106); Potassium 2.9 mEq/L (3.5-5.1); Protein, Total 6.6 g/dL (6.4-8.2); Sodium Level 142 mEq/L (136-145)
[2023-08-26 05:28] LABS: ALT/SGPT < 10 U/L (16-61)
[2023-08-26 05:46] LABS: Differential Total Cells Count 100; Lymphocytes 10 % (15-42); Monocytes 1 % (0-10); Segmented Neutrophils 89 % (40-80); Smudge Cells 1
[2023-08-26 05:47] LABS: Blood Morphology Comment NOTED (NOT SEEN); Hypochromasia 2+; Platelet Estimate ADEQ
[2023-08-26] MEDS ORDERED: NA CHLORIDE 0.9% 1,000 ML ONE (07:05)
[2023-08-26] MEDS: INSULIN REGULAR (HUMAN) 100 UNIT/ML SQ SCH (07:30)
[2023-08-26] MEDS: KCL 20 MEQ/100 mL IVPB 20 MEQ/100 ML BAG IV SCH (08:00)
--- NOTE | 2023-08-26 08:07 | P.PN ---
Subjective Date of Service: 08/27/23 Chief Complaint: Generalized weakness, lethargic Admitted to ICU on Levophed for hypotensive shock, being treated for osteomyelitis, on IV antibiotics, surgery consult - Physical Exam General: Alert, Mild distress, Confused HEENT: Atraumatic, Normocephalic Neck: Supple, 2+ carotid pulse no bruit Respiratory: Clear to auscultation bilaterally, Normal air movement Cardiovascular: Normal pulses, Regular rate/rhythm, Normal S1 S2 Capillary refill: <2 Seconds Gastrointestinal: Soft and benign, W/out hepatosplenomegaly, No rebound, No guarding Musculoskeletal: No clubbing, Other (Right BKA, Left foot Necrotic ulceration) Integumentary: Tenderness/swelling, Erythema Neurological: Abnormal gait, Abnormal speech Lymphatics: No axilla or inguinal lymphadenopathy <Alysia Durán - Last Filed: 08/27/23 08:07> Date of Service: 08/26/23 <Veronica Irving - Last Filed: 08/30/23 11:26> Review of Systems Per HPI <Alysia Durán - Last Filed: 08/27/23 08:07> Physical Examination - Vital Signs Temperature: 96.8 F Blood Pressure: 127/51 Pulse: 52 Respirations: 16 Pulse Ox (%): 100 - Studies Laboratory Data (last 24 hrs) 08/25/23 08/25/23 08/25/23 20:31 20:31 20:31 WBC 8.00 Hgb 8.6 L Hct 26.2 L Plt Count 221 PT 14.2 H INR 1.30 APTT 30.3 Sodium 141 Potassium 3.2 L BUN 18 Creatinine 1.23 Glucose 126 H Total Bilirubin 0.3 AST 13 L ALT < 10 L Alkaline Phosphatase 58 <Alysia Durán - Last Filed: 08/27/23 08:07> Assessment And Plan - Plan Assessment and Plan (1) Septic shock Current Visit: Yes Status: Acute Patient is on Levophed On IV antibiotics Will monitor lactic acid levels Titrate to MAP of more than 65 IV hydration Monitor closely in ICU Infectious disease consult (2) Osteomyelitis Current Visit: No Status: Acute Left foot osteomyelitis ER already consulted Dr. Brooks Possible amputation in a.m. Will keep n.p.o. for now Continue IV antibiotics Monitor closely Qualifiers: Osteomyelitis type: subacute Osteomyelitis location: foot Laterality: left Qualified Code(s): M86.272 - Subacute osteomyelitis, left ankle and foot (3) Anemia Current Visit: No Status: Chronic Anemia of chronic disease Monitor CBC daily Transfuse as needed Qualifiers: Anemia type: unspecified type Qualified Code(s): D64.9 - Anemia, unspecified (4) Peripheral vascular disease Current Visit: No Status: Chronic Plan: Continue home medications and titrate as needed (5) Type 2 diabetes mellitus Current Visit: No Status: Chronic Plan: Insulin sliding scale Will add on basal insulin Accu-Chek q. ACH S - Code Status/Comfort Care Code Status: Full Code Critical Care: Yes Time Spent Managing PTS Care (In Minutes): 55 <Alysia Durán - Last Filed: 08/27/23 08:07> Date of Service: 08/26/23 Patient was seen and examined. Events of the last 24 hours have been noted. Spoke with with ROBERT regarding patient's clinical picture after evaluating and examining the patient independently. I performed a substantial part of the MDM during this patient's care today. I personally made or approved the documented management plan and acknowledge its risk of complications. I agree with the findings and documentation provided in the ROBERT's notes. Patient was seen by surgery and anesthesia. Plan was to delay surgery over the weekend. I will get patient medically optimized prior to BKA of the left leg on Wednesday. Continue with antibiotics and gentle hydration. Appreciate cardiology consultation. <Veronica Irving - Last Filed: 08/30/23 11:26>
[2023-08-26] MEDS ORDERED: INSULIN REGULAR (HUMAN) 100 UNIT/ML ONE (08:50)
[2023-08-26] MEDS ORDERED: PIPERACIL/TAZO 3.375 GM VIAL IV ONE (08:51)
[2023-08-26] MEDS ORDERED: KCL 20 MEQ/100 mL IVPB 100 ML IV ONE (08:51)
[2023-08-26] MEDS ORDERED: ENOXAPARIN 40 MG/0.4 ML SQ ONE (08:51)
[2023-08-26] MEDS ORDERED: ALBUMIN HUMAN 25% 50 ML IV ONE (08:52)
[2023-08-26 08:58] LABS: Magnesium 1.9 mg/dL (1.6-2.4); Phosphorus 3.9 mg/dL (2.5-4.9); Potassium 3.3 mEq/L (3.5-5.1)
[2023-08-26] MEDS: ALBUMIN HUMAN 25% 100 ML IV SCH (09:00)
[2023-08-26] MEDS: PIPER TAZO 3.375 GM in NA CHLORIDE 0.9% 100 ML IV SCH (09:00)
[2023-08-26] MEDS: ENOXAPARIN 40 MG/0.4 ML SQ SCH (09:00)
--- NOTE | 2023-08-26 10:51 | RAD REPORT ---
EXAM DESCRIPTION: RAD - Foot Left 3 View - 08/25/2023 10:50 pm CLINICAL HISTORY: Osteomyelitis TECHNIQUE: Frontal, lateral and oblique views of the left foot. COMPARISON: XR Foot dated 07/29/2023 FINDINGS: Bones/joints: Prior first ray amputation at the tarsometatarsal level with adjacent hete rotopic bone. Interval second and third digit amputation at the level of the second metatarsal neck a nd the third metatarsophalangeal articulation. The distal margin of the second metatarsal remnant is minimally fragmented and irregular. Ill-defined lucency within the third metatarsal head. No disloc ation. Soft tissues: Soft tissue swelling along the dorsal and distal aspect of the foot. No radiopaque foreign body. IMPRESSION: Interval second and third digit amputation at the level of the second metatarsal neck an d the third metatarsophalangeal articulation. The distal margin of the second metatarsal remnant is m inimally fragmented and irregular and there is ill-defined lucency within the third metatarsal head s uspicious for osteomyelitis. Electronically signed by: Thompson Bolaños MD 08/25/2023 11:34 PM CDT Due to temporary technical issues with the PACS/Fluency reporting system, reports are being signed by the in house radiologist without review as a courtesy to ensure prompt reporting. The interpreting r adiologist is fully responsible for the content of the report.
--- NOTE | 2023-08-26 14:57 | RAD REPORT ---
EXAM DESCRIPTION: US - Lower Extremity Artery Uni Ltd - 08/26/2023 2:36 pm CLINICAL HISTORY: wound Pain and swelling, soft tissue wound COMPARISON: Lower Extremity Arterial Bilat dated 07/30/2023 FINDINGS: Doppler interrogation of the left lower extremity arterial system was performed. Launch mo nophasic waveforms are seen throughout the left lower extremity arterial system. No occlusion. IMPRESSION: There is blunted monophasic disease waveforms throughout the left lower extremity arteri al system. This likely indicates significant inflow disease. No complete occlusion evident.
--- NOTE | 2023-08-26 15:40 | EKG ---
Test Date: 2023-08-25 Test Time: 20:54:08 Mill Attendant: KYRIE MEASUREMENT RESULTS: Intervals: Rate: 73 DC: 164 QRSD: 82 QT: 420 QTc: 462 Bartlett: P: 44 DC: 164 QRS: -34 T: 48 INTERPRETIVE STATEMENTS: Normal sinus rhythm Left axis deviation Prolonged QT Abnormal ECG Compared to ECG 07/29/2023 12:18:59 Left-axis deviation now present Prolonged QT interval now present Myocardial infarct finding no longer present Electronically Signed On 08-26-23 15:39:14 CDT by Kareem Hutchison
[2023-08-27] MEDS: D5 0.45 NS 1,000 ML IV SCH (03:29)
--- NOTE | 2023-08-27 08:03 | P.PN ---
Subjective Date of Service: 08/27/23 Chief Complaint: Generalized weakness, lethargic On IV Zosyn for left foot osteomyelitis, , for surgical eval, Patient is total care, n.p.o. [facility] - Physical Exam General: Alert, nonverbal from a CVA HEENT: Atraumatic, Normocephalic Neck: Supple, 2+ carotid pulse no bruit Respiratory: Clear to auscultation bilaterally, Normal air movement Cardiovascular: Normal pulses, Regular rate/rhythm, Normal S1 S2 Capillary refill: <2 Seconds Gastrointestinal: Soft and benign, W/out hepatosplenomegaly, No rebound, No guarding Musculoskeletal: No clubbing, Other (Right BKA, Left foot Necrotic ulceration) Integumentary: Tenderness/swelling, Erythema Neurological: Abnormal gait, Abnormal speech Lymphatics: No axilla or inguinal lymphadenopathy <Alysia Durán - Last Filed: 08/27/23 15:35> Date of Service: 08/27/23 <Veronica Irving - Last Filed: 08/30/23 11:28> Review of Systems Per HPI <Alysia Durán - Last Filed: 08/27/23 15:35> Physical Examination - Vital Signs Temperature: 98 F Blood Pressure: 142/63 Pulse: 54 Respirations: 18 Pulse Ox (%): 97 <Alysia Durán - Last Filed: 08/27/23 15:35> Assessment And Plan - Plan Assessment and Plan (1) Septic shock improved Current Visit: Yes Status: Acute was admitted to ICU on levo fed, transferred to the floor 4/5-blood pressure stabilized On IV antibiotics Zosyn, vancomycin Will monitor lactic acid levels Titrate to MAP of more than 65 IV hydration Infectious disease consult for osteomyelitis Elevated CRP 128 (2) Osteomyelitis Current Visit: No Status: Acute Left foot osteomyelitis ER already consulted Dr. Brooks 4/5 n.p.o. after midnight surgical eval Possible amputation in a.m. Continue IV antibiotics Monitor closely Infectious disease consult, Zosyn, vancomycin wound culture, blood cultures Wound care consult Qualifiers: Osteomyelitis type: subacute Osteomyelitis location: foot Laterality: left Qualified Code(s): M86.272 - Subacute osteomyelitis, left ankle and foot (3) Anemia Current Visit: No Status: Chronic Anemia of chronic disease Monitor CBC daily Transfuse as needed Qualifiers: Anemia type: unspecified type Qualified Code(s): D64.9 - Anemia, unspecified (4) Peripheral vascular disease Current Visit: No Status: Chronic Plan: 08/25 Doppler ultrasound continue home medications and titrate as needed IMPRESSION: There is blunted monophasic disease waveforms throughout the left lower extremity arterial system. This likely indicates significant inflow disease. No complete occlusion evident Fall precautions, PT (5) Type 2 diabetes mellitus Current Visit: No Status: Chronic Plan: Insulin sliding scale Will add on basal insulin Accu-Chek q. ACH S Full code DVT SCDs Diet diabetic Disposition assisted [facility] Discharge Plan: Intermediate Critical Care: No Time Spent Managing PTS Care (In Minutes): 35 <Alysia Durán - Last Filed: 08/27/23 15:35> Date of Service: 08/27/23 Patient was seen and examined. Events of the last 24 hours have been noted. Spoke with with ROBERT regarding patient's clinical picture after evaluating and examining the patient independently. I performed a substantial part of the MDM during this patient's care today. I personally made or approved the documented management plan and acknowledge its risk of complications. I agree with the findings and documentation provided in the ROBERT's notes. Medically optimize prior to BKA of the left leg on Wednesday. Continue with an tibiotics and gentle hydration. Appreciate cardiology consultation. <Veronica Irving - Last Filed: 08/30/23 11:28>
--- NOTE | 2023-08-27 09:26 | P.CNS ---
Date of Consult: 08/27/23 Reason for Consult: osteomyelitis Chief Complaint: Generalized weakness, lethargic History of Present Illness: Patient is a 62-year-old male with a past medical history of aphasia, CVA, diabetes, hypertension, hypothyroidism, peripheral vascular disease, right AKA who presented to the ED from [facility] due to lethargic condition. Of note patient was recently admitted to the hospital with left foot osteomyelitis and abscess during which she underwent an amputation of the left second and third toe. He was subsequently discharged on 312 with a PICC line on IV vancomycin and Levaquin p.o. to complete 6 weeks of antibiotic therapy. Infectious disease consulted. Allergies No Known Allergies Allergy (Unverified 03/13/23 21:34) Home medications list reviewed: Yes Home Medications: Acetaminophen [Tylenol] 650 mg PO Q6HP PRN 03/13/23 Ascorbic Acid [C-500] 500 mg PO DAILY 03/13/23 Aspirin 81 mg PO DAILY 03/13/23 Atorvastatin Calcium [Lipitor*] 20 mg PO BEDTIME 03/13/23 Cyanocobalamin [Vitamin B-12*] 1,000 mcg PO DAILY 03/13/23 Divalproex [Depakote Sprinkle*] 4 cap PO BEDTIME 03/13/23 Furosemide [Lasix] 20 mg PO DAILY 03/13/23 Insulin Glargine,Hum.rec.anlog [Lantus Solostar] 30 unit SQ BEDTIME 03/13/23 Metoprolol Tartrate [Lopressor*] 12.5 mg PO BID 03/13/23 Mirtazapine [Remeron*] 15 mg PO BEDTIME 03/13/23 Nitroglycerin [Nitrostat*] 0.4 mg SL SEECOM PRN 03/13/23 Tamsulosin [Flomax*] 0.4 mg PO BEDTIME 03/13/23 Zinc Gluconate [Zinc] 50 mg PO DAILY 03/13/23 Tramadol HCl [Ultram] 50 mg PO Q6HP PRN 04/06/23 Collagenase [Santyl Ointment*] 1 appl TOP DAILY 07/30/23 Insulin Aspart [Novolog Flexpen] See Protocol SQ SEECOM 07/30/23 Mupirocin Oint [Bactroban 2% Ointment*] 1 appl TOP DAILY 07/30/23 Vancomycin/0.9 % Sod Chloride [Vanco 1.25 gm/250 ml-0.9% NaCl] 1.25 gm IV DIRECTED 08/26/23 levoFLOXacin [Levaquin] 750 mg PO DAILY 08/26/23 - Past Medical/Surgical History Diabetic: Yes -: CVA R) weakness, aphasia -: Diabetes -: HTN -: HLD -: Anxiety, Depression -: PVD -: hypothyroidism -: Diabetes -: Right AKA -: Left great toe amputation Psychosocial/ Personal History: Resides [facility] HOME - Social History Smoking Status: Unknown if ever smoked Alcohol use: No CD- Drugs: No Caffeine use: No Place of Residence: Retirement Review of Systems Integumentary: As per HPI Neurological: As per HPI Physical Examination Temp Pulse Resp BP Pulse Ox 98 F 54 18 142/63 H 97 08/27/23 08:14 08/27/23 08:14 08/27/23 08:14 08/27/23 08:14 08/27/23 08:14 General: In no apparent distress Respiratory: Clear to auscultation bilaterally, Other (unlabored respirations on room air) Cardiovascular: Regular rate/rhythm, Abnormal pulses (nonpalpable left pedal pulse) Gastrointestinal: Normal bowel sounds, Soft and benign Musculoskeletal: Other (right BKA) Integumentary: Other (left foot wound/recent toe amputation with eschar and foul odor) Urinary: Reinoso catheter Conclusions/Impression: Problem list Septic shock secondary to left foot infeciton/osteomyelitis Peripheral Arterial Disease Diabetes mellitus type II prio CVA with residual aphasia Hypertension Hyperlipidemia Hypothyroidism Prior right AKA Septic shock secondary to left foot infection/osteomyelitis Peripheral arterial disease --Patient was recently admitted to the hospital with left foot osteomyelitis and abscess during which she underwent an amputation of the left second and third toe. He was subsequently discharged on 08/02 with a PICC line on IV vancomycin and Levaquin p.o. to complete 6 weeks of antibiotic therapy [07/27 to 09/07] --Left foot x-ray 08/24: "Interval second and third digit amputation at the level of the second metatarsal neck and the third metatarsophalangeal articulation. The distal margin of the second metatarsal remnant is minimally fragmented and irregular and there is ill-defined lucency within the third metatarsal head suspicious for osteomyelitis." --Lower extremity arterial ultrasound 08/25: "There is blunted monophasic disease waveforms throughout the left lower extremity arterial system. This likely indicates significant inflow disease. No complete occlusion evident" --Blood cultures 08/24: no growth to date --Left foot wound cultures 08/26: gram-negative rods and gram-positive cocci on Gram stain --Currently on Zosyn and vancomycin started 08/25 --WBC within normal limits. Neutrophils elevated. Afebrile Recommendations -Continue Zosyn and vancomycin for now. Follow-up with final wound culture results. Will adjust antibiotics as appropriate. - Pending left lower extremity amputation -Strict blood glucose control. - Wound care per Dr. Randolph. -Monitor CBC and BMP. Vancomycin troughs. Case discussed with Sharon Johnson
[2023-08-27] MEDS: VANCOMYCIN 1.25 GM in NA CHLORIDE 0.9% 250 ML IVPB SCH (11:16)
[2023-08-27] MEDS: KCL 20 MEQ/100 mL IVPB 20 MEQ/100 ML BAG IV SCH (12:47)
[2023-08-27 17:35] LABS: Specific Gravity 1.012 (1.005-1.030); Sqamous Epithelial None Seen /HPF (None Seen); Urine Bacteria None Seen /HPF (<20); Urine Bilirubin NEGATIVE (Negative); Urine Blood Negative (Negative); Urine Clarity Clear (Clear); Urine Color Colorless (Yellow); Urine Culture Reflex Order NOT NEEDED; Urine Glucose NEGATIVE (Negative); Urine Ketones NEGATIVE (Negative); Urine Microscopic Reflex YN ORDER UMIC; Urine Mucus Slight /HPF (None Seen); Urine Nitrite NEGATIVE (Negative); Urine Protein NEGATIVE (Negative); Urine RBC <5 /HPF (None Seen); Urine Urobilinogen Normal (Normal); Urine WBC <5 /HPF (<5); Urine pH 6.5 (5.0-7.0)
[2023-08-27] MEDS: POTASSIUM 25 MEQ EFFERV TAB PO ONE (23:01)
[2023-08-28 05:13] LABS: Albumin 2.7 g/dL (3.4-5.0); Anion Gap 5.4 mEq/L (5.0-15.0); Magnesium 1.7 mg/dL (1.6-2.4); Phosphorus 2.2 mg/dL (2.5-4.9); Potassium 3.4 mEq/L (3.5-5.1)
[2023-08-28] MEDS: KCL 20 MEQ/100 mL IVPB 20 MEQ/100 ML BAG IV SCH ×2 (05:43→22:47)
[2023-08-28] MEDS: MAGNESIUM SULFATE 1 gm IVPB 1 GM/100 ML BAG IV ONE (05:43)
--- NOTE | 2023-08-28 07:25 | P.PN ---
Subjective Date of Service: 08/29/23 Chief Complaint: Generalized weakness, lethargic On IV Zosyn for left foot osteomyelitis, , for surgical eval, Patient is total care admitted from the half-way [facility] - Physical Exam General: Alert, nonverbal from a CVA HEENT: Atraumatic, Normocephalic Neck: Supple, 2+ carotid pulse no bruit Respiratory: Clear to auscultation bilaterally, Normal air movement Cardiovascular: Normal pulses, Regular rate/rhythm, Normal S1 S2 Capillary refill: <2 Seconds Gastrointestinal: Soft and benign, W/out hepatosplenomegaly, No rebound, No guarding Musculoskeletal: No clubbing, Other (Right BKA, Left foot Necrotic ulceration) Integumentary: Tenderness/swelling, Erythema Neurological: Abnormal gait, Abnormal speech Lymphatics: No axilla or inguinal lymphadenopathy <Alysia Durán - Last Filed: 08/29/23 07:11> Date of Service: 08/28/23 <Veronica Irving - Last Filed: 08/30/23 11:29> Review of Systems per HPI <Alysia Durán - Last Filed: 08/29/23 07:11> Physical Examination - Vital Signs Temperature: 97.3 F Blood Pressure: 168/85 Pulse: 81 Respirations: 18 Pulse Ox (%): 98 <Alysia Durán - Last Filed: 08/29/23 07:11> Assessment And Plan - Plan Assessment and Plan (1) Septic shock improved Current Visit: Yes Status: Acute was admitted to ICU on levo fed, transferred to the floor 4/5-blood pressure stabilized On IV antibiotics Zosyn, vancomycin Will monitor lactic acid levels Titrate to MAP of more than 65 IV hydration Infectious disease consult for osteomyelitis Elevated CRP 128 (2) Osteomyelitis Current Visit: No Status: Acute Left foot osteomyelitis ER already consulted Dr. Brooks 4/5 n.p.o. after midnight surgical eval Possible amputation in a.m. Continue IV antibiotics Monitor closely Infectious disease consult, Zosyn, vancomycin wound culture, blood cultures Wound care consult Qualifiers: Osteomyelitis type: subacute Osteomyelitis location: foot Laterality: left Qualified Code(s): M86.272 - Subacute osteomyelitis, left ankle and foot (3) Anemia Current Visit: No Status: Chronic Anemia of chronic disease Monitor CBC daily Transfuse as needed Qualifiers: Anemia type: unspecified type Qualified Code(s): D64.9 - Anemia, unspecified (4) Peripheral vascular disease Current Visit: No Status: Chronic Plan: 08/25 Doppler ultrasound continue home medications and titrate as needed IMPRESSION: There is blunted monophasic disease waveforms throughout the left lower extremity arterial system. This likely indicates significant inflow disease. No complete occlusion evident Fall precautions, PT (5) Type 2 diabetes mellitus Current Visit: No Status: Chronic Plan: Insulin sliding scale Will add on basal insulin Accu-Chek q. ACH S Full code DVT SCDs Diet diabetic [facility]position [facility] Discharge Plan: [facility] - Code Status/Comfort Care Code Status: Full Code Critical Care: No Time Spent Managing PTS Care (In Minutes): 35 <Alysia Durán - Last Filed: 08/29/23 07:11> Date of Service: 08/28/23 Patient was seen and examined. Events of the last 24 hours have been noted. Spoke with with ROBERT regarding patient's clinical picture after evaluating and examining the patient independently. I performed a substantial part of the MDM during this patient's care today. I personally made or approved the documented management plan and acknowledge its risk of complications. I agree with the findings and documentation provided in the ROBERT's notes. Patient is more awake and alert. Patient is interactive much more properly. Patient was seen by Cardiology and possible arteriogram on Wednesday prior to BKA to optimize patient's vascular flow. Otherwise, strict blood sugar control and continue on antibiotics. <Veronica Irving - Last Filed: 08/30/23 11:29>
--- NOTE | 2023-08-28 07:37 | P.PN ---
Subjective Date of Service: 08/29/23 Chief Complaint: Generalized weakness, lethargic On IV Zosyn for left foot osteomyelitis, , for surgical eval, admitted from the [facility] will need 6 weeks of IV no complaints of pain - Physical Exam General: Alert, nonverbal from a CVA HEENT: Atraumatic, Normocephalic Neck: Supple, 2+ carotid pulse no bruit Respiratory: Clear to auscultation bilaterally, Normal air movement Cardiovascular: Normal pulses, Regular rate/rhythm, Normal S1 S2 Capillary refill: <2 Seconds Gastrointestinal: Soft and benign, W/out hepatosplenomegaly, No rebound, No guarding Musculoskeletal: No clubbing, Other (Right BKA, Left foot Necrotic ulceration) Integumentary: Tenderness/swelling, Erythema Neurological: Abnormal gait, Abnormal speech Lymphatics: No axilla or inguinal lymphadenopathy <Alysia Durán - Last Filed: 08/29/23 09:09> Date of Service: 08/29/23 <Veronica Irving - Last Filed: 08/30/23 11:30> Review of Systems Per HPI <Alysia Durán - Last Filed: 08/29/23 09:09> Physical Examination - Vital Signs Temperature: 97.3 F Blood Pressure: 168/85 Pulse: 81 Respirations: 18 Pulse Ox (%): 98 <Alysia Durán - Last Filed: 08/29/23 09:09> Assessment And Plan - Plan Assessment and Plan (1) Septic shock resolved Current Visit: Yes Status: Acute was admitted to ICU on levo fed, transferred to the floor 4/5-blood pressure sta bilized On IV antibiotics Zosyn, vancomycin Will monitor lactic acid levels Titrate to MAP of more than 65 IV hydration Infectious disease consult for osteomyelitis Elevated CRP 128 (2) Osteomyelitis Current Visit: No Status: Acute Left foot osteomyelitis ER already consulted Dr. Brooks 4/5 surg consulted, Possible amputation in a.m. Continue IV antibiotics Monitor closely Infectious disease consult, Zosyn, vancomycin wound culture, blood cultures Wound care consult Qualifiers: Osteomyelitis type: subacute Osteomyelitis location: foot Laterality: left Qualified Code(s): M86.272 - Subacute osteomyelitis, left ankle and foot admitted to the hospital with left foot osteomyelitis and abscess during which underwent an amputation of the left second and third toe. He was subsequently discharged on 08/02 with a PICC line on IV vancomycin and Levaquin p.o. to complete 6 weeks of antibiotic therapy [07/27 to 09/07] Return admission left foot x-ray 08/24: "Interval second and third digit amputation at the level of the second metatarsal neck and the third metatarsophalangeal articulation. The distal margin of the second metatarsal remnant is minimally fragmented and irregular and there is ill-defined lucency within the third metatarsal head suspicious for osteomyelitis." --Lower extremity arterial ultrasound 08/25: "There is blunted monophasic disease waveforms throughout the left lower extremity arterial system. This likely indicates significant inflow disease. No complete occlusion evident" --Blood cultures 08/24: no growth to date --Left foot wound cultures 08/26: gram-negative rods and gram-positive cocci on Gram stain Will need PICC line placed Currently on Zosyn and vancomycin started 08/25 ending left lower extremity amputation Recommend strict blood glucose control. Wound care per Dr. Randolph. Infectious disease recommendation monitor CBC and BMP. Vancomycin troughs. (3) Anemia Current Visit: No Status: Chronic Anemia of chronic disease Monitor CBC daily Transfuse as needed Qualifiers: Anemia type: unspecified type Qualified Code(s): D64.9 - Anemia, unspecified (4) Peripheral vascular disease Current Visit: No Status: Chronic Plan: 08/25 Doppler ultrasound continue home medications and titrate as needed IMPRESSION: There is blunted monophasic disease waveforms throughout the left lower extremity arterial system. This likely indicates significant inflow disease. No complete occlusion evident Fall precautions, PT (5) Type 2 diabetes mellitus Current Visit: No Status: Chronic Plan: Insulin sliding scale Will add on basal insulin Accu-Chek q. ACHS Full code DVT SCDs Diet diabetic Disposition [facility] Discharge Plan: Detention - Code Status/Comfort Care Code Status: Full Code Critical Care: No Time Spent Managing PTS Care (In Minutes): 35 <Alysia Durán - Last Filed: 08/29/23 09:09> Date of Service: 08/29/23 Patient was seen and examined. Events of the last 24 hours have been noted. Spoke with with ROBERT regarding patient's clinical picture after evaluating and examining the patient independently. I performed a substantial part of the MDM during this patient's care today. I personally made or approved the documented management plan and acknowledge its risk of complications. I agree with the findings and documentation provided in the ROBERT's notes. Patient is doing well. Arteriogram possibly in the morning prior left BKA. Continue antibiotics. Gently hydrate prior to arteriogram for renal protection. <Veronica Irving - Last Filed: 08/30/23 11:30>
[2023-08-28] MEDS: POTASSIUM PHOS IN 0.9 % NACL 15 MMOL/250 ML BAG IV ONE (08:43)
--- NOTE | 2023-08-28 14:06 | CON ---
Date of Consultation: 08/28/2023 Reason For Consultation: Cardiac preop assessment for possible amputation. History Of Present Illness: This is a 62-year-old male with past medical history of CVA with aphasia , diabetes, hypertension, peripheral vascular disease, dyslipidemia, and hypothyroidism, who presente d with left foot osteomyelitis. He had some amputation of the third toes with debridement, however, on IV antibiotics, but not getting any better, so he presented to the emergency room. He was evaluat ed by Surgery and there is a plan for possible further amputation and I was asked to evaluate from th e cardiac risk standpoint. The patient denies having any history of cardiac disease. However, he is a very poor historian, could not get any information from him in regarding his cardiac history. Past Medical History: As outlined above in the HPI. Medications: Refer reconciliation sheet for detailed list. Allergies: NO KNOWN DRUG ALLERGIES. Family History: No premature coronary artery disease or cancer. Social History: He does not smoke or drink. Does not use any drugs. Review of Systems: All systems reviewed are negative except mentioned in HPI. Physical Examination: Vital Signs: Reviewed. Head and Neck: Pupils are equal, reactive to light. Intact eye movements. No JVD. No cervical lym phadenopathy. Neck is supple. Thyroid is not enlarged. Lungs: Clear to auscultation bilaterally. No rhonchi, wheezing, or crackles. No accessory muscle u se. Heart: Regular rate and rhythm. No extra sounds. Abdomen: Soft, nontender. Bowel sounds positive. No organomegaly. No masses or hernia. No rigidi ty or rebound. Extremities: No clubbing, cyanosis. He has ulcer, open wounds of the left foot with surrounding margarita thema. Neurologic: Alert, awake, with no new focal deficits appreciated. Investigations: He had Doppler of left lower extremity, showed blunted monophasic waveform throughou t the left lower extremity suggestive of severe inflow disease. Creatinine is 0.98, BUN is 9. Hemog lobin is 8.6. Assessment/recommendation: 1.Cardiac preoperative risk assessment. The patient is a very poor historian, unable to get any his tory from him. I recommend ischemic evaluation before the surgery. Also I recommend peripheral rikki ogram. If the patient is stable from the infectious standpoint, continue IV antibiotics and plan for coronary angiogram and peripheral angiogram to be done on Wednesday morning to facilitate the process o f healing. He has severe inflow disease. Intervention can potentially help minimizing risk post riaz margie and also given the fact that he cannot get his exercise capacity, I will perform coronary angiog robbie the same time of the peripheral angiogram. 2.Peripheral vascular disease, severe, arterial Doppler suggestive of severe inflow disease. Plan f or peripheral angiogram in the morning. 3.Acute cellulitis and osteomyelitis of left foot. On IV antibiotics. He will probably need amputa tion. We will plan for peripheral angiogram as above. 4.Hypertension. Blood pressure is controlled. 5.Dyslipidemia. Recommend Lipitor 40 mg nightly. SR/MODL Voice ID: [id number] Report ID: [id number]
[2023-08-28] MEDS: VANCOMYCIN 1.25 GM in NA CHLORIDE 0.9% 250 ML IVPB SCH (22:27)
[2023-08-29 04:09] LABS: Magnesium 1.9 mg/dL (1.6-2.4); Phosphorus 2.4 mg/dL (2.5-4.9)
[2023-08-29] MEDS ORDERED: POTASS/SODIUM PHOSPHATE 1 PKT POWD.PACK PO SCH (06:00)
[2023-08-29] MEDS: POTASS/SODIUM PHOSPHATE 1 PKT POWD.PACK PO SCH (08:52)
[2023-08-29] MEDS ORDERED: VANCOMYCIN 1.25 GM in NA CHLORIDE 0.9% 250 ML IVPB SCH (23:00)
[2023-08-30] MEDS: Meropenem 500 MG in NA CHLORIDE 0.9% 100 ML IV SCH (00:25)
[2023-08-30 04:19] LABS: Albumin 3.2 g/dL (3.4-5.0); Anion Gap 8.4 mEq/L (5.0-15.0); Magnesium 1.7 mg/dL (1.6-2.4); Phosphorus 2.8 mg/dL (2.5-4.9); Potassium 3.4 mEq/L (3.5-5.1)
[2023-08-30] MEDS: MAGNESIUM SULFATE 1 gm IVPB 1 GM/100 ML BAG IV ONE (05:34)
--- NOTE | 2023-08-30 08:45 | P.PN ---
Subjective Date of Service: 08/30/23 Chief Complaint: Generalized weakness, lethargic, severe sepsis - improved Subjective: No new changes (left foot wrapped with mildly bloody gauze, foul smelling' no longer on pressors) <Marline Lunakartik Cruz - Last Filed: 08/30/23 11:52> Date of Service: 08/30/23 <PacoNoeleron Hall - Last Filed: 08/30/23 21:33> Review of Systems 10-point ROS is otherwise unremarkable Integumentary: As per HPI Neurological: As per HPI <Marline Lunay Anthony - Last Filed: 08/30/23 11:52> Physical Examination - Vital Signs Temperature: 97.4 F Blood Pressure: 188/76 Pulse: 84 Respirations: 18 Pulse Ox (%): 98 - Physical Exam General: Alert, In no apparent distress, Other (non-verbal) HEENT: Normocephalic Neck: 2+ carotid pulse no bruit Respiratory: Normal air movement Cardiovascular: No edema, Regular rate/rhythm Capillary refill: <2 Seconds Gastrointestinal: Soft and benign Musculoskeletal: Other (left foot malodorous) Integumentary: Tenderness/swelling, Other (left foot) Neurological: Other (hx of CVA with significant aphasia) Lymphatics: No axilla or inguinal lymphadenopathy Urinary: Reinoso catheter Rectal: Deferred <Marline Lunay Anthony - Last Filed: 08/30/23 11:52> - Studies Microbiology Data (last 24 hrs): 08/25/23 21:06 Blood - Blood Aerobic Blood Culture - Final No growth in 5 days. 08/25/23 21:06 Blood - Blood Anaerobic Blood Culture - Final No growth in 5 days. 08/25/23 20:31 Blood - Blood Aerobic Blood Culture - Final No growth in 5 days. 08/25/23 20:31 Blood - Blood Anaerobic Blood Culture - Final No growth in 5 days. <Yessy Antonio - Last Filed: 08/30/23 21:33> Assessment And Plan - Plan Assessment and Plan (1) Septic shock resolved Current Visit: Yes Status: Acute was admitted to ICU on levo fed, transferred to the floor 4/5-blood pressure stabilized On IV antibiotics Zosyn, vancomycin (2) Osteomyelitis Current Visit: No Status: Acute Left foot osteomyelitis Dr. Brooks 08/26 surg consulted, Possible amputation 08/30/23 Continue IV antibiotics Monitor closely Infectious disease consult, Zosyn, vancomycin wound culture, blood cultures Wound care consult Qualifiers: Osteomyelitis type: subacute Osteomyelitis location: foot Laterality: left Qualified Code(s): M86.272 - Subacute osteomyelitis, left ankle and foot admitted to the hospital with left foot osteomyelitis and abscess during which underwent an amputation of the left second and third toe. He was subsequently discharged on 08/02 with a PICC line on IV vancomycin and Levaquin p.o. to complete 6 weeks of antibiotic therapy [07/27 to 09/07] Return admission left foot x-ray 08/24: "Interval second and third digit amputation at the level of the second metatarsal neck and the third metatarsophalangeal articulation. The distal margin of the second metatarsal remnant is minimally fragmented and irregular and there is ill-defined lucency within the third metatarsal head suspicious for osteomyelitis." --Lower extremity arterial ultrasound 08/25: "There is blunted monophasic disease waveforms throughout the left lower extremity arterial system. This likely indicates significant inflow disease. No complete occlusion evident" --Blood cultures 08/24: no growth to date --Left foot wound cultures 08/26: gram-negative rods and gram-positive cocci on Gram stain Will need PICC line placed Currently on Zosyn and vancomycin started 08/25 ending left lower extremity amputation Recommend strict blood glucose control. Wound care per Dr. Randolph. Infectious disease recommendation monitor CBC and BMP. Vancomycin troughs. IV hydration Elevated CRP 128 (3) Anemia Current Visit: No Status: Chronic Anemia of chronic disease Monitor CBC daily hemoglobin stable 08/30/23 at 8.6 Transfuse as needed Qualifiers: Anemia type: unspecified type Qualified Code(s): D64.9 - Anemia, unspecified (4) Peripheral vascular disease Current Visit: No Status: Chronic Plan: 08/25 Doppler ultrasound continue home medications and titrate as needed IMPRESSION: There is blunted monophasic disease waveforms throughout the left lower extremity arterial system. This likely indicates significant inflow disease. No complete occlusion evident Fall precautions, PT (5) Type 2 diabetes mellitus Current Visit: No Status: Chronic Plan: Insulin sliding scale Will add on basal insulin Accu-Chek q. ACHS (6) mild hypokalemia: 08/30/23 monitor and replenish <Luna,Lluvia Anthony - Last Filed: 08/30/23 11:52> - Plan Pt seen and examined. I agree with the note by the CHAIR. Continue iv merrem. Septic shock has resolved. Continue home meds for other chronic medical problems.. <Yessy Antonio - Last Filed: 08/30/23 21:33>
[2023-08-30] MEDS: AMLODIPINE 5 MG TAB PO SCH (09:00)
[2023-08-30] MEDS ORDERED: KCL 20 MEQ/100 mL IVPB 20 MEQ/100 ML BAG IV SCH (09:00)
[2023-08-30] MEDS: CYANOCOBALAMIN 1,000 MCG TAB PO SCH (09:00)
--- NOTE | 2023-08-30 09:17 | P.PN ---
Date of Service: 08/30/23 Infectious Disease Progress Note Chief Complaint: Generalized weakness, lethargic Subjective: In no apparent distress. No acute events overnight. No new or worsening complaints. Physical Examination Temp Pulse Resp BP Pulse Ox 97.4 F 84 18 188/76 H 98 08/30/23 08:55 08/30/23 08:55 08/30/23 08:55 08/30/23 08:55 08/30/23 08:55 General: In no apparent distress Respiratory: Clear to auscultation bilaterally. unlabored respirations. Cardiovascular: Regular rate/rhythm, Abnormal pulses. Gastrointestinal: Normal bowel sounds, Soft and benign Musculoskeletal: Other (right BKA) Integumentary: Left foot dressing clean dry and intact. Foul odor noted. Urinary: Reinoso catheter Assessment and Plan Problem list Septic shock secondary to left foot infection/osteomyelitis Peripheral Arterial Disease Diabetes mellitus type II prio CVA with residual aphasia Hypertension Hyperlipidemia Hypothyroidism Prior right AKA Septic shock secondary to left foot infection/osteomyelitis Peripheral arterial disease --Patient was recently admitted to the hospital with left foot osteomyelitis and abscess during which she underwent an amputation of the left second and third toe. He was subsequently discharged on 08/02 with a PICC line on IV vancomycin and Levaquin p.o. to complete 6 weeks of antibiotic therapy [07/27 to 09/07] --Left foot x-ray 08/24: "Interval second and third digit amputation at the level of the second metatarsal neck and the third metatarsophalangeal articulation. The distal margin of the second metatarsal remnant is minimally fragmented and irregular and there is ill-defined lucency within the third metatarsal head suspicious for osteomyelitis." --Lower extremity arterial ultrasound 08/25: "There is blunted monophasic disease waveforms throughout the left lower extremity arterial system. This likely indicates significant inflow disease. No complete occlusion evident" --Blood cultures 08/24: no growth to date --Left foot wound cultures 08/26: Proteus mirabilis ESBL -- Zosyn and vancomycin (08/25-08/29) switched to Meropenem 08/29 --WBC within normal limits. Neutrophils elevated. Afebrile Recommendations -Wound culture growing proteus ESBL, patient started on Meropenem 08/29, continue for now - Pending left lower extremity amputation -Strict blood glucose control. - Wound care per Dr. Randolph. -Monitor CBC and BMP. Vancomycin troughs. Case discussed with Sharon Johnson
[2023-08-30] MEDS: ASPIRIN 81 MG CHEWABLE TABLET PO SCH (09:23)
[2023-08-30] MEDS: METOPROLOL TAR 25 MG TAB PO SCH ×2 (09:27→09:39)
[2023-08-30] MEDS: KCL 20 MEQ/100 mL IVPB 100 ML IV SCH (09:28)
[2023-08-30] MEDS: LABETALOL 20 MG/4ML SYRINGE IV PRN (09:50)
[2023-08-30 10:48] LABS: Absolute Eosinophils 0.1 K/uL (0-0.5); Absolute Lymphocytes (CBC) 1.4 K/uL (0.7-4.9); Absolute Monocytes 0.9 K/uL (0.1-1.3); Basophils % 0.4 % (0-1.3); Eosinophils % 2.1 % (0-4.4); Hematocrit 24.8 % (39.6-49.0); Hemoglobin 8.2 g/dL (13.6-17.9); Lymphocytes % 21.3 % (15.3-44.8); MCH 28.3 pg (27.0-35.0); MCHC 33.1 g/dL (32.0-36.0); MCV 85.5 fL (80-100); MPV 7.6 fL (7.6-11.3); Monocytes % 13.7 % (3.3-12.3); Neutrophils % 62.5 % (41.7-73.7); Nucleated Red Blood Cells % 0.1 % (0-0); Platelets 285 thou/uL (152-406); Red Cell Distribution Width 14.5 % (12.1-15.2)
[2023-08-30] MEDS: Meropenem 1,000 MG in NA CHLORIDE 0.9% 100 ML IV SCH (11:48)
[2023-08-30] MEDS: NA CHLORIDE 0.9% 500 ML ONE (12:14)
[2023-08-30] MEDS ORDERED: FENTANYL CITR 100 MCG/2 ML ONE (12:27)
[2023-08-30] MEDS ORDERED: HEPA 1000U/500MLS 2,000 UNIT/1,000 ML BAG IV ONE (12:27)
[2023-08-30] MEDS ORDERED: MIDAZOLAM HCL 2 MG/2 ML INJ ONE (12:27)
[2023-08-30] MEDS ORDERED: LIDOCAINE 1% 20 ML MDV ONE (12:27)
[2023-08-30] MEDS ORDERED: HEPARIN 10,000 UNIT/10 ML VIAL IV ONE (12:28)
[2023-08-30] MEDS ORDERED: ATROPINE SULF 1 MG/10 ML SYR IV ONE (12:28)
[2023-08-30] MEDS ORDERED: ASPIRIN 325 MG TAB ONE (12:43)
[2023-08-30] MEDS ORDERED: TICAGRELOR 90 MG TABLET PO ONE (12:43)
[2023-08-30] MEDS ORDERED: CLOPIDOGREL 75 MG TABLET ONE (12:43)
--- NOTE | 2023-08-30 17:50 | PN ---
Date of Progress Note: 08/30/2023 Subjective: Seen by bedside, doing clinically well. Review of Systems: No chest pain, shortness of breath, orthopnea, or cough. No nausea, vomiting, or diarrhea. All othe r systems were reviewed, they were negative. Objective: Vital Signs: Reviewed. Head and Neck: Pupils are equal, reactive to light. Intact eye movements. No JVD. No cervical lym phadenopathy. Neck is supple. Thyroid is not enlarged. Lungs: Clear to auscultation bilaterally. No rhonchi, wheezing, or crackles. No accessory muscle u se. Heart: Irregular. No extra sounds. Abdomen: Soft, nontender. Bowel sounds positive. No organomegaly. No masses or hernia. No rigidi ty or rebound. Extremities: No clubbing or cyanosis. Neurologic: Alert, awake. No acute focal deficits appreciated. Lymph Nodes: No cervical or axillary lymphadenopathy. Investigations: Labs were reviewed. Assessment And Plan: 1.Peripheral vascular disease. Plan for peripheral angiogram today as he has ulcer and diabetic ryan t that is not healing very well and plan accordingly. In the interim, continue antibiotics. 2.Cardiac preoperative risk assessment with severe peripheral vascular disease. Plan for coronary a ngiogram today before amputation if it deemed to be necessary. 3.Hypertension. Blood pressure is controlled. 4.Dyslipidemia. Continue statin. SR/MODL Voice ID: [id number] Report ID: [id number]
[2023-08-30] MEDS: ATORVASTATIN 20 MG TAB PO SCH (20:43)
[2023-08-30] MEDS: MIRTAZAPINE 15 MG TAB PO SCH (20:43)
[2023-08-30] MEDS: DIVALPROEX ER 250 MG TAB PO SCH (20:43)
[2023-08-31 06:35] LABS: Anion Gap 6.5 mEq/L (5.0-15.0); Magnesium 1.9 mg/dL (1.6-2.4); Potassium 3.5 mEq/L (3.5-5.1)
[2023-08-31 08:55] VITALS: O2SAT 98
[2023-08-31] MEDS: POTASSIUM CL SA 10 MEQ TAB PO ONE (09:14)
[2023-08-31 18:27] VITALS: BP 145/55; TEMP 97.7
--- NOTE | 2023-08-31 19:08 | P.DS ---
Admission Date: 08/25/23 Discharge Date: 08/31/23 Reason for Admission: Generalized weakness, lethargic, severe sepsis - improved Consultations: Dr. Hutchison attempted to clear patient for left foot amputation. He took pt to the [facility] [place] and needs CABG. Pt transferred to [facility] per Dr. Antonio/Dr. Hutchison Brief History of Present Illness: 62 yrs old male who was recently been admitted to the hospital with left foot osteomyelitis and abscess status post amputation of the left second and third toes and debridement of left foot necrotic tissue and [facility] with [facility] line and was on IV antibiotics. Patient has a past medical history of anemia, anxiety, aphasia, CVA, dysphagia, depression, diabetes, hypertension, hypothyroidism, insomnia, peripheral vascular disease, abdominal aortic aneurysm, and right lower extremity above-knee amputation, also recent admission for left foot osteomyelitis and abscess status post amputation of the left second and third toes and debridement of necrotic tissue on 07/30/2023. Patient was discharged on 08/03/2023 with PICC line and IV vancomycin and p.o. Levaquin to the [facility]. He was found by the [facility] and lethargic condition,pale and feeling unwell. Patient nonverbal on arrival appears pale and is also hypotensive on arrival blood pressure 88/50. Hospital Course: Mr. Andrews improved with IV antibiotics and was scheduled for left BKA. During cardiology clearance for procedure, it was found that Mr. Andrews is in urgent need of CABG. Dr. Hutchison and Dr. Antonio spoke and began transfer process. <Lluvia Luna - Last Filed: 08/31/23 19:10> Admission Date: 08/25/23 Discharge Date: 09/03/23 Hospital Course: Pt seen and examined. I agree with the note by the [facility]. Pt will transferred to another facility for CABG. Ok to transfer <Yessy Antonio - Last Filed: 09/03/23 21:32> Disposition: TRANSFER TO [facility] Discharge Condition: FAIR Vital Signs/Physical Exam: Temp Pulse Resp BP Pulse Ox 97.7 F 60 18 145/55 H 98 08/31/23 18:17 08/31/23 18:17 08/31/23 18:17 08/31/23 18:17 08/31/23 18:17 General: In no apparent distress, Other (nonverbal) HEENT: Normocephalic Neck: JVD not distended Respiratory: Normal air movement Cardiovascular: Regular rate/rhythm Capillary refill: <2 Seconds Gastrointestinal: Soft and benign Musculoskeletal: Other (left foot with malodorous discharge, wound care has been performed and foot wrapped in Kerlex) Integumentary: Other (left foot in need of further amputation) Neurological: Other (nonverbal), Abnormal strength Lymphatics: No axilla or inguinal lymphadenopathy External genitalia: Deferred Rectal: Deferred Laboratory Data at Discharge: WBC 6.40 thou/uL (4.3-10.9) 08/30/23 10:05 Hgb 8.2 g/dL (13.6-17.9) L 08/30/23 10:05 Hct 24.8 % (39.6-49.0) L 08/30/23 10:05 Plt Count 285 thou/uL (152-406) 08/30/23 10:05 PT 14.2 SECONDS (9.5-12.5) H 08/25/23 20:31 INR 1.30 08/25/23 20:31 APTT 30.3 SECONDS (24.3-36.9) 08/25/23 20:31 Sodium 142 mEq/L (136-145) 08/31/23 05:40 Potassium 3.5 mEq/L (3.5-5.1) 08/31/23 05:40 BUN 8 mg/dL (7-18) 08/31/23 05:40 Creatinine 0.81 mg/dL (0.70-1.30) 08/31/23 05:40 Glucose 149 mg/dL (74-106) H 08/31/23 05:40 Phosphorus 2.8 mg/dL (2.5-4.9) 08/30/23 04:00 Magnesium 1.9 mg/dL (1.6-2.4) 08/31/23 05:40 Total Bilirubin 0.4 mg/dL (0.2-1.0) 08/26/23 04:38 AST 17 U/L (15-37) 08/26/23 04:38 ALT < 10 U/L (16-61) L 08/26/23 04:38 Alkaline Phosphatase 48 U/L (45-117) 08/26/23 04:38 <Lluvia Luna Anthony - Last Filed: 08/31/23 19:10> Vital Signs/Physical Exam: Temp Pulse Resp BP Pulse Ox 97.7 F 60 18 145/55 H 98 08/31/23 18:17 08/31/23 18:17 08/31/23 18:17 08/31/23 18:17 08/31/23 18:17 Laboratory Data at Discharge: WBC 6.40 thou/uL (4.3-10.9) 08/30/23 10:05 Hgb 8.2 g/dL (13.6-17.9) L 08/30/23 10:05 Hct 24.8 % (39.6-49.0) L 08/30/23 10:05 Plt Count 285 thou/uL (152-406) 08/30/23 10:05 PT 14.2 SECONDS (9.5-12.5) H 08/25/23 20:31 INR 1.30 08/25/23 20:31 APTT 30.3 SECONDS (24.3-36.9) 08/25/23 20:31 Sodium 142 mEq/L (136-145) 08/31/23 05:40 Potassium 3.5 mEq/L (3.5-5.1) 08/31/23 05:40 BUN 8 mg/dL (7-18) 08/31/23 05:40 Creatinine 0.81 mg/dL (0.70-1.30) 08/31/23 05:40 Glucose 149 mg/dL (74-106) H 08/31/23 05:40 Phosphorus 2.8 mg/dL (2.5-4.9) 08/30/23 04:00 Magnesium 1.9 mg/dL (1.6-2.4) 08/31/23 05:40 Total Bilirubin 0.4 mg/dL (0.2-1.0) 08/26/23 04:38 AST 17 U/L (15-37) 08/26/23 04:38 ALT < 10 U/L (16-61) L 08/26/23 04:38 Alkaline Phosphatase 48 U/L (45-117) 08/26/23 04:38 <Yessy Antonio - Last Filed: 09/03/23 21:32> <Lluvia Luna - Last Filed: 08/31/23 19:10> <Noel Antonioheatherjosh Hall - Last Filed: 09/03/23 21:32> Home Medications: Acetaminophen [Tylenol] 650 mg PO Q6HP PRN 03/13/23 Ascorbic Acid [C-500] 500 mg PO DAILY 03/13/23 Aspirin 81 mg PO DAILY 03/13/23 Atorvastatin Calcium [Lipitor*] 20 mg PO BEDTIME 03/13/23 Cyanocobalamin [Vitamin B-12*] 1,000 mcg PO DAILY 03/13/23 Divalproex [Depakote Sprinkle*] 4 cap PO BEDTIME 03/13/23 Furosemide [Lasix] 20 mg PO DAILY 03/13/23 Insulin Glargine,Hum.rec.anlog [Lantus Solostar] 30 unit SQ BEDTIME 03/13/23 Metoprolol Tartrate [Lopressor*] 12.5 mg PO BID 03/13/23 Mirtazapine [Remeron*] 15 mg PO BEDTIME 03/13/23 Nitroglycerin [Nitrostat*] 0.4 mg SL SEECOM PRN 03/13/23 Tamsulosin [Flomax*] 0.4 mg PO BEDTIME 03/13/23 Zinc Gluconate [Zinc] 50 mg PO DAILY 03/13/23 Tramadol HCl [Ultram] 50 mg PO Q6HP PRN 04/06/23 Collagenase [Santyl Ointment*] 1 appl TOP DAILY 07/30/23 Insulin Aspart [Novolog Flexpen] See Protocol SQ SEECOM 07/30/23 Mupirocin Oint [Bactroban 2% Ointment*] 1 appl TOP DAILY 07/30/23 Vancomycin/0.9 % Sod Chloride [Vanco 1.25 gm/250 ml-0.9% NaCl] 1.25 gm IV DIRECTED 08/26/23 levoFLOXacin [Levaquin] 750 mg PO DAILY 08/26/23 Physician Discharge Instructions: Pt transferred to [facility] via EMS Followup: Tyler Allan MD [Primary Care Provider] -
--- NOTE | 2023-08-31 20:33 | OP ---
Date of Procedure: 08/30/2023 Surgeon: AIDA CAMPA Procedures Performed: 1.Selective coronary angiogram. 2.Left heart catheterization. 3.Peripheral angiogram. Indications: 1.Preop cardiac risk assessment. 2.Severe peripheral vascular disease for amputation and major surgery. Access: Left common femoral artery 4-Honduran, closed with manual pressure. Complications: None. Bleeding: Less than 50 mL. Anesthesia: Total sedation time was 50 minutes. Description Of Procedure: After risks, benefits, and alternatives were explained, the patient agreed to procedure and signed informed consent. The patient was brought into cardiac catheterization [facility], prepped and draped in usual sterile fashion. Then, I accessed left common femoral artery usi ng micropuncture kit, ultrasound guidance, and fluoroscopy, placed a 4-Honduran pinnacle sheath and too k 4-Honduran JR4 catheter into the aortic root over a J-wire, engaged the left main, took standard view s, and then exchanged for a 6-Honduran JR4 catheter, engaged the RCA, took standard views, and the cath eter was pushed over the wire into the LV, measured LVEDP. Pullback did not record any gradient and removed the catheter and exchanged for a straight pigtail, placed in distal aorta, performed distal a ortogram with runoff. Then, I removed the catheter and the sheath. Manual pressure was used for mitch sure of the hemostasis. Findings: Coronary angiogram: 1.Left main, very small artery with diffuse 40% stenosis, but the artery is less than 1.5 mm. 2.LAD, very small, less than 1.5 mm with diffuse disease ranging between 50% to 70%, multiple locati ons. 3.Left circumflex also very small multiple small branches. Diffuse disease as well. They are about 1 mm each vessel. 4.RCA is large with ostial 90%, mid 70%, and then OUTFITTER CABIN 100% with collaterals from the LAD. 5.LVEDP is borderline elevated at 50 mmHg. Peripheral angiogram: Distal aorta is widely patent and the left common iliac, external iliac, commo n femoral are all patent, and then the profunda is patent with diffuse 60% to 70% stenosis and the SF A is with diffuse 90% to 95% stenosis. Popliteal artery has focal 80% stenosis. Anterior tibial is occluded. Posterior tibial and peroneal are small with diffuse disease. Conclusions: 1.Severe multivessel coronary artery disease. 2.Severe peripheral vascular disease. My recommendations will be to transfer the patient to a higher level of care center to perform the am putation of lower extremity in case cardiac support is needed as his coronary arteries are not in a g ood shape. /MODL Voice ID: [id number] Report ID: [id number]
== END 2023-08-31 19:07 | disposition short-term general hospital (02) | DRG 871 ==
LOC: ER 20:11 → ERHOLD 23:22 → 4TH 08-26 14:06
PROVIDERS: ADMIT Family Medicine; ATTEND Hospitalist
PROC: 4A033R1 Measurement of Arterial Saturation, Peripheral, Percutaneous Approach (ICD-10-PCS; principal; 2023-08-25)
PROC: 3E043XZ Introduction of Vasopressor into Central Vein, Percutaneous Approach (ICD-10-PCS; 2023-08-25)
PROC: B41G1ZZ Fluoroscopy of Left Lower Extremity Arteries using Low Osmolar Contrast (ICD-10-PCS; 2023-08-25)
PROC: 4A023N7 Measurement of Cardiac Sampling and Pressure, Left Heart, Percutaneous Approach (ICD-10-PCS; 2023-08-31)
PROC: B2111ZZ Fluoroscopy of Multiple Coronary Arteries using Low Osmolar Contrast (ICD-10-PCS; 2023-08-31)
DX: A41.59 Other Gram-negative sepsis (principal); G92.9 Unspecified toxic encephalopathy; R65.21 Severe sepsis with septic shock; T81.30XA Disruption of wound, unspecified, initial encounter; E11.52 Type 2 diabetes mellitus with diabetic peripheral angiopathy with gangrene; M86.172 Other acute osteomyelitis, left ankle and foot; L03.116 Cellulitis of left lower limb; L02.612 Cutaneous abscess of left foot; Z16.12 Extended spectrum beta lactamase (ESBL) resistance; E11.69 Type 2 diabetes mellitus with other specified complication; E11.65 Type 2 diabetes mellitus with hyperglycemia; E11.621 Type 2 diabetes mellitus with foot ulcer; L97.529 Non-pressure chronic ulcer of other part of left foot with unspecified severity; I10 Essential (primary) hypertension; E78.5 Hyperlipidemia, unspecified; E87.6 Hypokalemia; D64.9 Anemia, unspecified; E03.9 Hypothyroidism, unspecified; I69.920 Aphasia following unspecified cerebrovascular disease; Z79.4 Long term (current) use of insulin; Z95.1 Presence of aortocoronary bypass graft; Z79.82 Long term (current) use of aspirin; Z79.899 Other long term (current) drug therapy; Z89.422 Acquired absence of other left toe(s); Z89.611 Acquired absence of right leg above knee
CPT/HCPCS: 36415; 36600; 51702; 71045; 75630; 76937; 80048; 80053; 80069; 80164; 80202; 81001; 82805; 82947; 83605; 83735; 84100; 84132; 84439; 84443; 85025; 85610; 85730; 86140; 87040; 87070; 87077; 87186; 87205; 93005; 93458; 93926; 94760; 96365; 96366; 96367; 96368; 96375; 99152; 99153; 99291; 99292; C1893; J0461; J1650; J1720; J1815; J2001; J2185; J2250; J2543; J3010; J3475; J3480; J7030; J7040; J7050; J7799; P9047